=== PATIENT | male | born 1950 | race Caucasian/White ===

== ENCOUNTER 2021-05-04 11:17 | Inpatient (IN) ==
--- NOTE | 2021-05-04 11:27 | Emergency Department Note ---
Impression & Plan Dizziness, Leukocytosis, Acute hyponatremia, Bigeminy ED Provider Note NAME: BRAD LOERA AGE: 71 SEX: M : 1950 ARRIVES VIA: Ambulance INFORMANT: Patient ED PROVIDER(S): Black Abraham DO CHIEF COMPLAINT: lightheaded HPI: Patient is a 71-year-old male who presents the ER for feeling lightheaded. Symptoms started yesterday and have been present with changing positions. He feels very unsteady. He denies any headache or change in vision. No shortness of breath. He does admit to some chest tightness which has been present intermittently since yesterday. No belly pain nausea vomiting or diarrhea. No dysuria urgency or frequency. Symptoms are very similar to heart attack that he had within the past month. He was seen and evaluated at [facility] within the past week and discharged. ROS: See above HPI for pertinent positives & negatives. A total of 10 systems reviewed and were otherwise negative. PAST MEDICAL HISTORY:See Below PAST SURGICAL HISTORY:See Below FAMILY HISTORY:See Below SOCIAL HISTORY:See Below HOME MEDICATIONS:See Below ALLERGIES:See Below VITALS:See Below PHYSICAL EXAMINATION: GENERAL: Sitting up in bed, alert, well appearing, well nourished, no distress, non-toxic EYE EXAM: normal conjunctiva. PERRL and EOM's grossly intact. OROPHARYNX: no exudate, no erythema, lips, buccal mucosa, and tongue normal and mucous membranes are moist NECK: supple, no nuchal rigidity, no adenopathy, non-tender LUNGS: Clear to auscultation. Normal chest wall mechanics HEART: no murmurs, S1 normal and S2 normal ABDOMEN: abdomen soft, non-tender, normo-active bowel sounds, no masses, no rebound or guarding. BACK: Back is symmetrical on inspection and there is no deformity, no midline tenderness, no CVA tenderness. SKIN: no rashes and no bruising UPPER EXTREMITIES: upper extremities are grossly normal. LOWER EXTREMITIES: No pitting edema. NEURO EXAM: Normal sensorium, cranial nerves II-XII grossly intact, normal speech, no gross weakness of arms, no gross weakness of legs. MEDICAL DECISION MAKING: Patient is a 71-year-old male who presents the ER for dizziness. He had a stent placed over 3 weeks ago. He notes he is very lightheaded when he changes positions. IV was stopped blood was obtained. Labs show mild leukocytosis. No significant anemia. LFTs bilirubin and lipase is unremarkable. Troponin was negative. CT head was negative. EKG was a bigeminy rate of 80. He was given IV fluids. He was given aspirin. Updated at bedside. D/w hospitalist patient was admitted for further work-up. Triage Nursing notes reviewed. Limited review of prior medical records performed Vital Signs: reviewed and remarkable for HTN Differential diagnosis: Differential diagnoses includes but is not limited to acute coronary syndrome, myocardial infarction, pericarditis, pulmonary embolus, aortic dissection, pneumonia, pneumothorax, musculoskeletal, shingles, esophageal. ER treatment provided: See below Diagnostics interpreted by me: ECG: Sinus rhythm with bigeminy Rate 80 PVCs present QTC 477 No old to compare to Cardiac Monitoring: An order was placed for continuous cardiac monitoring. The monitor shows a rate of 82 with sinus rhythm. Laboratory studies: As stated above and show below. Imaging studies: The head was negative Chest x-ray was unremarkable Consultation(s): Discussed with hospitalist for further evaluation Procedures: none Critical Care: None Past Med/Surg History Medical History Asthma BPH (benign prostatic hyperplasia) CAD (coronary artery disease) Depression HLD (hyperlipidemia) HTN (hypertension) Major neurocognitive disorder MARTHA (obstructive sleep apnea) not on cpap, not compliant Rheumatoid arthritis Schizophrenia Surgical History History of colonoscopy History of esophagogastroduodenoscopy (EGD) History of heart artery stent History of prior ablation treatment Family History (Updated 05/04/21 @ 15:16 by Vi Fenton PA-C) Other Coronary heart disease Social History (Updated 05/04/21 @ 14:48 by Vi Fenton PA-C) Smoking Status: Never smoker Hx Alcohol Use: No Preferred Language: French Current Living Situation: Alone Feels Safe at Home: Yes Allergies Allergies Allergy/AdvReac Type Severity Reaction Status Date / Time No Known Allergies Allergy Verified 05/04/21 14:10 Home Meds Home Medications Medication Instructions Recorded Confirmed albuterol sulfate 90 mcg/actuation 2 puff INHALATION 6XD PRN 05/04/21 05/04/21 aerosol inhaler (Proventil HFA) amlodipine 2.5 mg tablet 2.5 mg PO DAILY 05/04/21 05/04/21 aspirin 81 mg tablet,delayed 81 mg PO DAILY 05/04/21 05/04/21 release atenolol 25 mg tablet 37.5 mg PO DAILY 05/04/21 05/04/21 atorvastatin 40 mg tablet 40 mg PO DAILY 05/04/21 05/04/21 citalopram 20 mg tablet 20 mg PO DAILY 05/04/21 05/04/21 clonazepam 1 mg tablet 1 mg PO BID 05/04/21 05/04/21 clopidogrel 75 mg tablet 75 mg PO DAILY 05/04/21 05/04/21 docusate sodium 100 mg capsule 100 mg PO DAILY 05/04/21 05/04/21 (Colace) ezetimibe 10 mg tablet (Zetia) 10 mg PO DAILY 05/04/21 05/04/21 fluticasone 250 mcg-salmeterol 50 1 inh INHALATION BID 05/04/21 05/04/21 mcg/dose blistr powdr for inhalation (Advair Diskus) furosemide 20 mg tablet 20 mg PO DAILY 05/04/21 05/04/21 melatonin 5 mg tablet 5 mg PO HS PRN 05/04/21 05/04/21 metoprolol tartrate 25 mg tablet 25 mg PO BID 05/04/21 05/04/21 multivitamin 1 tab PO DAILY 05/04/21 05/04/21 multivitamin with iron 1 tab PO DAILY 05/04/21 05/04/21 olanzapine 10 mg tablet (Zyprexa) 10 mg PO DAILY 05/04/21 05/04/21 pantoprazole 20 mg tablet,delayed 20 mg PO DAILY 05/04/21 05/04/21 release risperidone 1 mg tablet 2 mg PO DAILY 05/04/21 05/04/21 risperidone 3 mg tablet 3 mg PO HS 05/04/21 05/04/21 Results & Data (ED) Vital Signs Vital Signs - 24 hr 05/04/21 11:08 05/04/21 11:26 05/04/21 11:30 Temperature 36.8 C Temperature Source Oral Pulse Rate 72 77 77 Pulse Rate from SpO2 Sensor 39 L 51 L Pulse Rhythm Irregular Respiratory Rate 20 20 20 Respiratory Effort / Characteristics Non-Labored Respiratory Depth Normal Blood Pressure 164/72 H Blood Pressure Mean 102 Pulse Oximetry 97 97 97 Oxygen Delivery Method Room Air Sepsis Recent Fever Within 48 Hours No Sepsis New/Unexplained Change in Mental Status No Sepsis Action Taken by Nursing No Action Required 05/04/21 11:40 Temperature Temperature Source Pulse Rate 82 Pulse Rate from SpO2 Sensor 42 L Pulse Rhythm Respiratory Rate 14 Respiratory Effort / Characteristics Respiratory Depth Blood Pressure Blood Pressure Mean Pulse Oximetry 97 Oxygen Delivery Method Sepsis Recent Fever Within 48 Hours Sepsis New/Unexplained Change in Mental Status Sepsis Action Taken by Nursing Laboratory Data Result diagrams: 05/04/21 11:28 05/04/21 11:28 Lab Results 05/04/21 05/04/21 Range/Units 11:28 11:28 WBC 12.68 H (4.8-10.8) K/uL RBC 4.68 L (4.7-6.1) M/uL Hgb 14.5 (14.0-18.0) g/dL Hct 42.6 (42-52) % MCV 91.0 (80-100) fL MCH 31.0 (25-34) pg MCHC 34.0 (32-36) g/dL RDW Std Deviation 44.1 (36.4-46.3) fL RDW Coeff of Radha 13.4 (11.5-14.5) % Plt Count 211 (130-400) K/uL MPV 9.2 (7.4-10.4) fL Immature Gran % (Auto) 0.2 % Neut % (Auto) 85.6 % Lymph % (Auto) 6.3 % Converse % (Auto) 6.8 % Eos % (Auto) 0.9 % Baso % (Auto) 0.2 % Neut # (Auto) 10.85 H (1.4-6.5) K/uL Lymph # (Auto) 0.80 L (1.2-3.4) K/uL Converse # (Auto) 0.86 H (0.11-0.59) K/uL Eos # (Auto) 0.12 (0-0.5) K/uL Baso # (Auto) 0.02 (0-0.2) K/uL Immature Gran # (Auto) 0.03 H (0.00-0.02) K/uL Sodium 130 L (136-145) mmol/L Potassium 4.4 (3.5-5.1) mmol/L Chloride 97 L (98-107) mmol/L Carbon Dioxide 28 (21-32) mmol/L Anion Gap 5 (3-11) BUN 9 (6-23) mg/dl Creatinine 0.97 (0.6-1.4) mg/dl Est Cr Clr Drug Dosing Not Reportable Est GFR ( Amer) 90.0 ml/min Est GFR (Non-Af Amer) 77.7 ml/min BUN/Creatinine Ratio 9.3 L (10-20) Glucose 136 H (70-99(Fasting)) mg/dl Calcium 9.2 (8.5-10.1) mg/dl Total Bilirubin 0.6 (0.2-1.0) mg/dl AST 15 (13-39) U/L ALT 15 (7-52) U/L Alkaline Phosphatase 59 (34-104) U/L Troponin I < 0.03 (0-0.04) ng/ml Total Protein 7.0 (6.0-8.3) gm/dl Albumin 4.0 (3.4-5.0) gm/dl Globulin 3.0 (2.5-4.0) gm/dl Albumin/Globulin Ratio 1.3 (0.9-2) Lipase 11 (11-82) U/L Administered Medications Discontinued Medications Aspirin (Aspirin Chew 324 Mg) 324 mg PO NOW STA Stop: 05/04/21 13:07 Last Admin: 05/04/21 13:32 Dose: 324 mg Documented by: [id number] Sodium Chloride (Nss) 500 mls @ 999 mls/hr IV .Q31M ONE Stop: 05/04/21 12:01 Last Admin: 05/04/21 11:42 Dose: 999 mls/hr Documented by: [id number] Imaging Data Radiologist's Impression: Chest X-Ray 05/04/21 11:31 XR chest 1V portable CLINICAL HISTORY: Atypical chest pain TECHNIQUE: Single frontal radiograph of the chest was obtained. Comparison: None available at the time of this dictation. FINDINGS: Median sternotomy wires are seen. Cardiomegaly is noted. The lungs are clear. Small bilateral pleural effusions are seen. IMPRESSION: Cardiomegaly with small bilateral pleural effusions. ACT 112: Negative or not required by law. Electronically signed by: Pete Mahoney M.D. 05/04/2021 12:[address] 05/04/21 11:31 CT SCAN OF THE BRAIN WITHOUT IV CONTRAST CLINICAL HISTORY: Dizziness. COMPARISON STUDY: No priors. TECHNIQUE: Unenhanced axial CT scan of the brain is performed from the vertex to the skull base. A dose lowering technique was utilized adhering to the principles of ALARA. CT DOSE: 690.05 mGycm FINDINGS: Brain parenchyma: There are age-related involutional changes noting mild subcortical and periventricular microangiopathic change. There is no hemorrhage, mass effect, or evidence of acute territorial ischemia by CT criteria. Gaviria- white matter differentiation is preserved. No extra-axial fluid collection is seen. A small chronic lacunar infarct is noted in the right cerebellar hemisphere. Ventricles, sulci, cisterns: Prominent secondary to involutional change. Intracranial vasculature: There is atherosclerotic calcification of the cavernous carotid and vertebral arteries. Calvarium: Unremarkable. Sinuses and mastoids: The visualized paranasal sinuses are clear. The mastoid air cells are well pneumatized. Orbits: The bony orbits are grossly intact. IMPRESSION: There is no hemorrhage, mass effect, or evidence of acute territorial ischemia by CT criteria. ACT 112: Negative or not required by law. Electronically signed by: Fernandez Ritter M.D. 05/04/2021 1:58 PM Discharge Plan Visit Data Chief Complaint: Dizziness Stated Complaint: DIZZY ED Provider: Black Abraham Discharge Problem: Dizziness, Leukocytosis, Acute hyponatremia, Bigeminy Forms Stand Alone Forms: My [facility] Prescriptions Prescriptions: No Action atorvastatin 40 mg tablet 40 mg PO DAILY RF: 0 amlodipine 2.5 mg tablet 2.5 mg PO DAILY RF: 0 clopidogrel 75 mg tablet 75 mg PO DAILY RF: 0 pantoprazole 20 mg tablet,delayed release (DR/EC) 20 mg PO DAILY RF: 0 furosemide 20 mg tablet 20 mg PO DAILY RF: 0 metoprolol tartrate 25 mg tablet 25 mg PO BID RF: 0 multivitamin Tablet 1 tab PO DAILY RF: 0 fluticasone propion-salmeterol [Advair Diskus] 250-50 mcg/dose blister with device 1 inh INHALATION BID RF: 0 clonazepam 1 mg Tablet 1 mg PO BID RF: 0 atenolol 25 mg Tablet 37.5 mg PO DAILY RF: 0 olanzapine [Zyprexa] 10 mg Tablet 10 mg PO DAILY RF: 0 aspirin 81 mg Tablet,Delayed Release (Dr/Ec) 81 mg PO DAILY RF: 0 risperidone 3 mg tablet 3 mg PO HS RF: 0 citalopram 20 mg Tablet 20 mg PO DAILY RF: 0 docusate sodium [Colace] 100 mg capsule 100 mg PO DAILY RF: 0 albuterol sulfate [Proventil HFA] 90 mcg/actuation Hfa Aerosol Inhaler 2 puff INHALATION 6XD PRN (Reason: SOB) RF: 0 risperidone 1 mg tablet 2 mg PO DAILY RF: 0 multivitamin with iron [Tab-A-Ludivina/Iron] Tablet 1 tab PO DAILY RF: 0 ezetimibe [Zetia] 10 mg Tablet 10 mg PO DAILY RF: 0 melatonin 5 mg Tablet 5 mg PO HS PRN (Reason: Sleep) RF: 0 Referrals Referrals: PCP,NO [Physician] - Discharge Problem: Leukocytosis Qualifiers: Leukocytosis type: unspecified Qualified Code(s): D72.829 - Elevated white blood cell count, unspecified
[2021-05-04] MEDS ORDERED: SODIUM CHLORIDE 0.9% 500 ML IV ONE (11:31)
[2021-05-04 11:38] LABS: Basophils # (auto) 0.02 K/uL (0-0.2); Basophils % (auto) 0.2 %; Eosinophils # (auto) 0.12 K/uL (0-0.5); Eosinophils % (auto) 0.9 %; Hematocrit (blood only) 42.6 % (42-52); Hemoglobin 14.5 g/dL (14.0-18.0); Immature Granulocytes # (auto) 0.03 K/uL (0.00-0.02); Immature Granulocytes % (auto) 0.2 %; Lymphocytes % (auto) 6.3 %; Mean Platelet Volume 9.2 fL (7.4-10.4); Monocytes # (auto) 0.86 K/uL (0.11-0.59); Monocytes % (auto) 6.8 %; Neutrophils # (auto) 10.85 K/uL (1.4-6.5); Neutrophils % (auto) 85.6 %; Platelet Count 211 K/uL (130-400); RDW Coefficient of Variation 13.4 % (11.5-14.5); RDW Standard Deviation 44.1 fL (36.4-46.3); Red Blood Count 4.68 M/uL (4.7-6.1); White Blood Count 12.68 K/uL (4.8-10.8)
[2021-05-04 12:02] LABS: Troponin I < 0.03 ng/ml (0-0.04)
[2021-05-04 12:11] LABS: Alanine Aminotransferase 15 U/L (7-52); Albumin Globulin Ratio 1.3 (0.9-2); Alkaline Phosphatase 59 U/L (34-104); Anion Gap 5 (3-11); Aspartate Aminotransferase 15 U/L (13-39); BUN Creatinine Ratio 9.3 (10-20); Bilirubin,Total 0.6 mg/dl (0.2-1.0); Blood Urea Nitrogen 9 mg/dl (6-23); Calcium 9.2 mg/dl (8.5-10.1); Carbon Dioxide 28 mmol/L (21-32); Chloride 97 mmol/L (98-107); Est GFR (Non-African American) 77.7 ml/min; Glucose 136 mg/dl (70-99(Fasting)); Lipase 11 U/L (11-82); Potassium 4.4 mmol/L (3.5-5.1); Sodium 130 mmol/L (136-145)
--- NOTE | 2021-05-04 12:14 | XRay Report ---
XR chest 1V portable CLINICAL HISTORY: Atypical chest pain TECHNIQUE: Single frontal radiograph of the chest was obtained. Comparison: None available at the time of this dictation. FINDINGS: Median sternotomy wires are seen. Cardiomegaly is noted. The lungs are clear. Small bilateral pleural effusions are seen. IMPRESSION: Cardiomegaly with small bilateral pleural effusions. ACT 112: Negative or not required by law. Electronically signed by: Pete Mahoney M.D. 05/04/2021 12:12 PM
[2021-05-04] MEDS ORDERED: ASPIRIN CHEW 324 MG PO STA (13:06)
--- NOTE | 2021-05-04 13:10 | Electrocardiogram Report ---
Test Reason : Blood Pressure : / mmHG Vent. Rate : 080 BPM Atrial Rate : 080 BPM P-R Int : 176 ms QRS Dur : 084 ms QT Int : 414 ms P-R-T Axes : 033 015 051 degrees QTc Int : 477 ms Sinus rhythm with frequent Premature ventricular complexes Possible Left atrial enlargement Abnormal ECG No previous ECGs available Confirmed by Raymond Huber ([id number]) on 05/04/2021 1:10:01 PM Referred By: REFERRED SELF Confirmed By:Sarbjit Huber
--- NOTE | 2021-05-04 14:00 | CT Scan Report ---
CT SCAN OF THE BRAIN WITHOUT IV CONTRAST CLINICAL HISTORY: Dizziness. COMPARISON STUDY: No priors. TECHNIQUE: Unenhanced axial CT scan of the brain is performed from the vertex to the skull base. A do se lowering technique was utilized adhering to the principles of ALARA. CT DOSE: 690.05 mGycm FINDINGS: Brain parenchyma: There are age-related involutional changes noting mild subcortical and periventric ular microangiopathic change. There is no hemorrhage, mass effect, or evidence of acute territorial i schemia by CT criteria. Gaviria-white matter differentiation is preserved. No extra-axial fluid collecti on is seen. A small chronic lacunar infarct is noted in the right cerebellar hemisphere. Ventricles, sulci, cisterns: Prominent secondary to involutional change. Intracranial vasculature: There is atherosclerotic calcification of the cavernous carotid and vertebr al arteries. Calvarium: Unremarkable. Sinuses and mastoids: The visualized paranasal sinuses are clear. The mastoid air cells are well pneu matized. Orbits: The bony orbits are grossly intact. IMPRESSION: There is no hemorrhage, mass effect, or evidence of acute territorial ischemia by CT sergey kilgore. ACT 112: Negative or not required by law. Electronically signed by: Fernandez Ritter M.D. 05/04/2021 1:58 PM
--- NOTE | 2021-05-04 14:47 | History & Physical Report ---
Date of Service May 04, 2021 Assessment & Plan (1) Lightheadedness: (2) Bigeminy: (3) Leukocytosis: (4) Acute hyponatremia: (5) CAD (coronary artery disease): (6) HTN (hypertension): (7) HLD (hyperlipidemia): Plan: This is a 71-year-old male who has significant past medical history of CAD with history of CABG, HTN, HLD, MARTHA noncompliant with CPAP, asthma, BPH, schizophrenia, depression, major neurocognitive disorder who presents to ED via EMS secondary to dizziness. Lightheadedness Bigeminy admit to PCU pt with persistent bigeminy and symptomatic orthostatics consult cardiology obtain echocardiogram monitor on telemetry check mag, tsh will hold evening dose of metoprolol CAD with hx of CABG hx of coronary stent placement 1 month ago per pt on regimen of ASA, plavix, statin, metoprolol as above transferring cardiology care to [facility] HTN bp mildly elevated pt on amlodipine and metoprolol monitor Hyponatremia/Hypochloremia Na 130, Chl 97 possibly in setting of diuretic pt euvolemic hold lasix for now monitor daily and resume as able Leukocytosis no s/sx of infection CXR reviewed-no infiltration but clinically more crackles on right base Blood cultures have been taken and he was started with intravenous ceftriaxone and doxycycline obtain urine, procal HLD continue statin and zetia Asthma no acute exac continue advair, prn ventolin Neurocognitive disorder pt has seen inpt psych felt to have underlying neurocog deficit or early onset dementia pt is a poor historian Dispo: PCU, will obtain records from recent ER visit and [facility] cardiology records, HIM consult placed. He does live at home alone, [facility] involved FULL CODE PCP: Celia Hartmann, recently established Pt was seen and examined in collaboration with Dr. Rosas, please see addendum History of Present Illness Chief Complaint: Dizziness x 1 day. Primary Care Provider: Bong Gould MD This is a 71-year-old male who has significant past medical history of CAD with history of CABG, HTN, HLD, MARTHA noncompliant with CPAP, asthma, BPH, schizophrenia, depression, major neurocognitive disorder who presents to ED via EMS secondary to dizziness. Of significance patient has recently established with [place] 2 weeks ago and records are limited. Previously had been followed by a PCP in [place] as well as cardiology at [facility]. Patient states approximately 1 month ago he suffered a small MA and had to have a stent placed in [place], [place]. Since then he has been doing well until last evening when he was standing doing dishes and became very lightheaded and dizzy. He had to sit down. Dizziness and lightheadedness gets worse with movement. He states, "my h eart rate is low." He was seen in clinic today and EMS was summoned to bring patient to ED. Upon arrival with EMS heart rate was in 40s. He did take his morning medications. He further complains of chest heaviness although he states this has been present for a, "long time." He denies any garth chest pain. He is experiencing palpitations. He denies any falls or syncope. He denies any fever, chills, sweats, shortness of breath, EHRNANDEZ, cough, hemoptysis, or symptoms, nausea, vomiting, abdominal pain. Denies any recent illness. He denies any smoking rhonchal use. He does live alone. Although patient states symptoms of been going on for 1 day, per [facility] he was seen at [facility] ER earlier this week secondary to similar symptoms. He was discharged to home. Also patient was recently confined at [facility] and psychiatry due to depression and loneliness. Allergies Allergy/AdvReac Type Severity Reaction Status Date / Time No Known Allergies Allergy Verified 05/04/21 14:10 Home Medications Medication Instructions Recorded Confirmed Type albuterol sulfate 90 mcg/actuation 2 puff INHALATION 6XD PRN 05/04/21 05/04/21 History aerosol inhaler (Proventil HFA) amlodipine 2.5 mg tablet 2.5 mg PO DAILY 05/04/21 05/04/21 History aspirin 81 mg tablet,delayed 81 mg PO DAILY 05/04/21 05/04/21 History release atorvastatin 40 mg tablet 40 mg PO DAILY 05/04/21 05/04/21 History citalopram 20 mg tablet 20 mg PO DAILY 05/04/21 05/04/21 History clonazepam 1 mg tablet 1 mg PO BID 05/04/21 05/04/21 History clopidogrel 75 mg tablet 75 mg PO DAILY 05/04/21 05/04/21 History docusate sodium 100 mg capsule 100 mg PO DAILY 05/04/21 05/04/21 History (Colace) ezetimibe 10 mg tablet (Zetia) 10 mg PO DAILY 05/04/21 05/04/21 History fluticasone 250 mcg-salmeterol 50 1 inh INHALATION BID 05/04/21 05/04/21 History mcg/dose blistr powdr for inhalation (Advair Diskus) furosemide 20 mg tablet 20 mg PO DAILY 05/04/21 05/04/21 History melatonin 5 mg tablet 5 mg PO HS PRN 05/04/21 05/04/21 History metoprolol tartrate 25 mg tablet 25 mg PO BID 05/04/21 05/04/21 History multivitamin 1 tab PO DAILY 05/04/21 05/04/21 History multivitamin with iron 1 tab PO DAILY 05/04/21 05/04/21 History olanzapine 10 mg tablet (Zyprexa) 10 mg PO DAILY 05/04/21 05/04/21 History pantoprazole 20 mg tablet,delayed 20 mg PO DAILY 05/04/21 05/04/21 History release risperidone 1 mg tablet 2 mg PO DAILY 05/04/21 05/04/21 History risperidone 3 mg tablet 3 mg PO HS 05/04/21 05/04/21 History Past Med/Surg History Medical History Asthma BPH (benign prostatic hyperplasia) CAD (coronary artery disease) Depression HLD (hyperlipidemia) HTN (hypertension) Major neurocognitive disorder MARTHA (obstructive sleep apnea) not on cpap, not compliant Rheumatoid arthritis Schizophrenia Surgical History History of colonoscopy History of esophagogastroduodenoscopy (EGD) History of heart artery stent History of prior ablation treatment Family History Other Coronary heart disease Social History Smoking Status: Never smoker Hx Alcohol Use: No Preferred Language: Albanian Current Living Situation: Alone Feels Safe at Home: Yes Review of Systems Review of Systems: All systems reviewed & are unremarkable except as noted in HPI & below Physical Exam Physical Exam: Constitutional: WD/WN, elderly, male, vitals as above, NAD, sitting up in bed, pleasant, conversing easily Head: Normocephalic, Atraumatic Eyes: PERRL, conjunctivae normal, anicteric sclerae ENMT: external ear and nose normal, oropharynx normal Neck: trachea midline, no thyromegaly normal visual inspection Respiratory: normal respiratory effort, lungs clear to auscultation, no wheeze, rales, rhonchi. Normal insp/exp effort, no accessory muscle use Cardiovascular: Bradycardic rate with frequent ectopy, no murmur, no edema Vessels: no JVD or carotid bruit Chest: normal inspection of chest Abdomen: normal bowel sounds, soft, nontender, no hepatosplenomegaly Musculoskeletal: no cyanosis or clubbing, extremities motor strength 5/5 Skin: no rashes, warm and dry normal turgor Neurologic: PERRL, EOMI, accommodation nl, no face palsy, no dysarthria CN's II-XI intact bilaterally and moves all extremities Psychiatric: A+Ox3, euthymic affect Lymphatic: no cervical or axillary lymphadenopathy : deferred Results & Data Results & Data ([facility]) Vital Signs (Past 12 Hours) Vital Signs Temp Pulse Resp BP Pulse Ox 05/04/21 11:40 82 14 97 05/04/21 11:30 77 20 97 05/04/21 11:26 77 20 97 05/04/21 11:08 36.8 C 72 20 164/72 H 97 Diagnostic Findings Chest X-Ray 05/04/21 11:31 XR chest 1V portable CLINICAL HISTORY: Atypical chest pain TECHNIQUE: Single frontal radiograph of the chest was obtained. Comparison: None available at the time of this dictation. FINDINGS: Median sternotomy wires are seen. Cardiomegaly is noted. The lungs are clear. Small bilateral pleural effusions are seen. IMPRESSION: Cardiomegaly with small bilateral pleural effusions. ACT 112: Negative or not required by law. Electronically signed by: Pete Mahoney M.D. 05/04/2021 12:[address] 05/04/21 11:31 CT SCAN OF THE BRAIN WITHOUT IV CONTRAST CLINICAL HISTORY: Dizziness. COMPARISON STUDY: No priors. TECHNIQUE: Unenhanced axial CT scan of the brain is performed from the vertex to the skull base. A dose lowering technique was utilized adhering to the principles of ALARA. CT DOSE: 690.05 mGycm FINDINGS: Brain parenchyma: There are age-related involutional changes noting mild subcortical and periventricular microangiopathic change. There is no hemorrhage, mass effect, or evidence of acute territorial ischemia by CT criteria. Gaviria- white matter differentiation is preserved. No extra-axial fluid collection is seen. A small chronic lacunar infarct is noted in the right cerebellar hemisph ere. Ventricles, sulci, cisterns: Prominent secondary to involutional change. Intracranial vasculature: There is atherosclerotic calcification of the cavernous carotid and vertebral arteries. Calvarium: Unremarkable. Sinuses and mastoids: The visualized paranasal sinuses are clear. The mastoid air cells are well pneumatized. Orbits: The bony orbits are grossly intact. IMPRESSION: There is no hemorrhage, mass effect, or evidence of acute territorial ischemia by CT criteria. ACT 112: Negative or not required by law. Electronically signed by: Fernandez Ritter M.D. 05/04/2021 1:58 PM Medications Administered Medication List Discontinued Medications Aspirin (Aspirin Chew 324 Mg) 324 mg PO NOW STA Stop: 05/04/21 13:07 Last Admin: 05/04/21 13:32 Dose: 324 mg Documented by: [id number] Sodium Chloride (Nss) 500 mls @ 999 mls/hr IV .Q31M ONE Stop: 05/04/21 12:01 Last Admin: 05/04/21 11:42 Dose: 999 mls/hr Documented by: [id number] ECG Rate (beats per minute): 80 Rhythm: normal sinus Findings: + PVC (bigeminy) and + prolonged QT (477ms) COVID-19 Results Results COVID-19 Adm Lab Results: RBC 4.68 M/uL (4.7-6.1) L 05/04/21 WBC 12.68 K/uL (4.8-10.8) H 05/04/21 Hgb 14.5 g/dL (14.0-18.0) 05/04/21 Hct 42.6 % (42-52) 05/04/21 Plt Count 211 K/uL (130-400) 05/04/21 Neutrophils (%) (Auto) 85.6 % 05/04/21 Lymphocytes (%) (Auto) 6.3 % 05/04/21 Monocytes # (Auto) 0.86 K/uL (0.11-0.59) H 05/04/21 Eosinophils # (Auto) 0.12 K/uL (0-0.5) 05/04/21 Immature Granulocyte % (Auto) 0.2 % 05/04/21 Neutrophils # (Auto) 10.85 K/uL (1.4-6.5) H 05/04/21 Lymphocytes # (Auto) 0.80 K/uL (1.2-3.4) L 05/04/21 Monocytes # (Auto) 0.86 K/uL (0.11-0.59) H 05/04/21 Eosinophils # (Auto) 0.12 K/uL (0-0.5) 05/04/21 Basophils # (Auto) 0.02 K/uL (0-0.2) 05/04/21 Immature Granulocyte # (Auto) 0.03 K/uL (0.00-0.02) H 05/04/21 Na 130 mmol/L (136-145) L 05/04/21 K 4.4 mmol/L (3.5-5.1) 05/04/21 Cl 97 mmol/L (98-107) L 05/04/21 CO2 28 mmol/L (21-32) 05/04/21 Anion Gap 5 (3-11) 05/04/21 BUN 9 mg/dl (6-23) 05/04/21 Creatinine 0.97 mg/dl (0.6-1.4) 05/04/21 BUN/Creatinine Ratio 9.3 (10-20) L 05/04/21 Glucose Level 136 mg/dl (70-99(Fasting)) H 05/04/21 Ca 9.2 mg/dl (8.5-10.1) 05/04/21 Total Bilirubin 0.6 mg/dl (0.2-1.0) 05/04/21 AST/SGOT 15 U/L (13-39) 05/04/21 ALT/SGPT 15 U/L (7-52) 05/04/21 Alkaline Phosphatase 59 U/L (34-104) 05/04/21 Total Protein 7.0 gm/dl (6.0-8.3) 05/04/21 Albumin 4.0 gm/dl (3.4-5.0) 05/04/21 Globulin 3.0 gm/dl (2.5-4.0) 05/04/21 Albumin/Globulin Ratio 1.3 (0.9-2) 05/04/21 Troponin I < 0.03 ng/ml (0-0.04) 05/04/21 Procalcitonin 0.05 ng/ml (0-0.5) 05/04/21 D-Dimer 1160 ug/L FEU (0-500) H* 05/04/21 PTT 27.6 Seconds (21.0-31.0) 05/04/21 INR 1.0 (0.9-1.1) 05/04/21 SARS-CoV-2, RNA, NAAT NEGATIVE (NEGATIVE) 05/04/21 Chest X-Ray 05/04/21 Code Status & VTE Plan Code Status FULL CODE VTE Prophylaxis Plan VTE Prophylaxis will be ordered: Yes Supervising Physician Co-Signing Physician Notes Attending addendum: The patient was seen and examined in emergency room He has CAD and is status post CABG x1, PIERRE graft to LAD and also stent placement in left circumflex in 2018, hypertension, hyperlipidemia and MARTHA has been complaining of dizziness since last night He was noted to have palpitation with low heart rate as well without any chest pain and/or shortness of breath On examination Lying in bed comfortably with occasional palpitation Blood pressure noted to be high at 164/72 Monitor did show bigeminy and the rate was going anywhere from 50-70 Chestminimal bibasilar crackles more on the right than the left HeartS1-S2, ectopy but no murmur Abdomenbenign CNSalert, awake and oriented x3 His labs, EKG and imaging studies reviewed Has CAD status post CABG and stent placement as above coming in with bigeminy and dizziness going on since last night History of chronic bigeminy and PVC ablation in 2018 Cardiology consulted He was noted to have very high D-dimer and a CTA was requested to rule out pulmonary embolism His white count was minimally elevated and likely has right basilar infiltration on clinical examination he was a started with intravenous ceftriaxone and doxycycline. Blood cultures were taken Agree with assessment and plan as outlined above by Vi Rosas (1) Leukocytosis Leukocytosis type: unspecified Qualified Code(s): D72.829 - Elevated white blood cell count, unspecified
--- NOTE | 2021-05-04 15:56 | Cardiology Consultation ---
Date of Consultation May 04, 2021 Assessment & Plan (1) Bigeminy: (2) Lightheadedness: (3) CAD (coronary artery disease): (4) HTN (hypertension): (5) Major neurocognitive disorder: Patient is a complex 71-year-old male with history as outlined including chronic coronary artery disease with recent coronary intervention at [facility]. Patient complains of dizziness and lightheadedness and generalized malaise. EKG reveals chronic ventricular ectopy/bigeminy likely as a source of patient's sensed low heart rate on pulse oximeter No acute cardiac findings at this time by cardiac enzyme and EKG Plan obtain records from [facility] Obtain echocardiogram to establish baseline LV systolic function Maintain telemetry given past history of ventricular arrhythmias Continue beta-laverne noting bigeminy will cause artifactually low heart rate Given diffuse vascular disease and dizziness would check carotid ultrasound Exclude underlying infectious causes with elevated white white cell count,hyponatremia Cardiology will follow this admission History of Present Illness Reason for Consultation: Dizziness Requesting Physician: Vi Fenton History of Present Illness Patient is a 71-year-old male with ongoing issues include 1. Chronic coronary artery disease status post coronary bypass grafting x1, PIERRE graft to the LAD, May 2017, subsequent coronary stent intervention left circumflex June 2017 (unable to be grafted) NonST segment elevation myocardial infarction with subsequent intervention with Xience drug-eluting stent to the left circumflex 04/14/2021 [facility] 2. Chronic ventricular ectopy and bigeminy status post PVC ablation 2017, past ventricular tachycardia post coronary bypass graft 3. Hypertension 4. Hyperlipidemia 5. Obstructive sleep apnea/asthma/copd 6. Chronic anxiety/depressive disorder/schizophrenia with inpatient psychiatric hospitalization 04/23/2021 at [facility] 7. Chart history of abdominal aneurysm Patient is extremely poor historian but notes not having felt well for several weeks with resultant multiple ER possible visits including [facility] He presented for evaluation today due to complaints of heart pounding hard at n ight. He checked his pulse and finds it to be slow at times and feels dizzy with complaints. No chest pressure pain no syncope or near syncope. Feels chilled at times but no productive cough. Appetite is fair Has had bleeding in the past but no recent bleeding concerns Underwent coronary intervention due to shortness of breath on 04/14/2021 with possible slight improvement in symptoms. No orthostasis noted on examination today despite complaints of dizziness Telemetry demonstrates sinus rhythm with ventricular ectopy, bigeminy Allergies Allergy/AdvReac Type Severity Reaction Status Date / Time No Known Allergies Allergy Verified 05/04/21 14:10 Home Medications Medication Instructions Recorded Confirmed Type albuterol sulfate 90 mcg/actuation 2 puff INHALATION 6XD PRN 05/04/21 05/04/21 History aerosol inhaler (Proventil HFA) amlodipine 2.5 mg tablet 2.5 mg PO DAILY 05/04/21 05/04/21 History aspirin 81 mg tablet,delayed 81 mg PO DAILY 05/04/21 05/04/21 History release atorvastatin 40 mg tablet 40 mg PO DAILY 05/04/21 05/04/21 History citalopram 20 mg tablet 20 mg PO DAILY 05/04/21 05/04/21 History clonazepam 1 mg tablet 1 mg PO BID 05/04/21 05/04/21 History clopidogrel 75 mg tablet 75 mg PO DAILY 05/04/21 05/04/21 History docusate sodium 100 mg capsule 100 mg PO DAILY 05/04/21 05/04/21 History (Colace) ezetimibe 10 mg tablet (Zetia) 10 mg PO DAILY 05/04/21 05/04/21 History fluticasone 250 mcg-salmeterol 50 1 inh INHALATION BID 05/04/21 05/04/21 History mcg/dose blistr powdr for inhalation (Advair Diskus) furosemide 20 mg tablet 20 mg PO DAILY 05/04/21 05/04/21 History melatonin 5 mg tablet 5 mg PO HS PRN 05/04/21 05/04/21 History metoprolol tartrate 25 mg tablet 25 mg PO BID 05/04/21 05/04/21 History multivitamin 1 tab PO DAILY 05/04/21 05/04/21 History multivitamin with iron 1 tab PO DAILY 05/04/21 05/04/21 History olanzapine 10 mg tablet (Zyprexa) 10 mg PO DAILY 05/04/21 05/04/21 History pantoprazole 20 mg tablet,delayed 20 mg PO DAILY 05/04/21 05/04/21 History release risperidone 1 mg tablet 2 mg PO DAILY 05/04/21 05/04/21 History risperidone 3 mg tablet 3 mg PO HS 05/04/21 05/04/21 History Patient History Medical History Asthma BPH (benign prostatic hyperplasia) CAD (coronary artery disease) Depression HLD (hyperlipidemia) HTN (hypertension) Major neurocognitive disorder MARTHA (obstructive sleep apnea) not on cpap, not compliant Rheumatoid arthritis Schizophrenia Surgical History History of colonoscopy History of esophagogastroduodenoscopy (EGD) History of heart artery stent History of prior ablation treatment Family History Other Coronary heart disease Social History Smoking Status: Never smoker Hx Alcohol Use: No Preferred Language: Romanian Current Living Situation: Alone Feels Safe at Home: Yes Review of Systems Review of Systems: All systems reviewed & are unremarkable except as noted in HPI & below Physical Exam Constitutional: + overweight; no acute distress Anxious Eyes: PERRL, conjunctivae normal, anicteric sclerae ENMT: external ear and nose normal, oropharynx normal Neck: trachea midline, no thyromegaly Respiratory: Auscultation: + wheezes (With forced cough) Cardiovascular: Rate/Rhythm: regular rate and regular rhythm Heart Sounds: normal S1 and normal S2; no gallop and no cardiac rub Vessels: femoral pulses present and radial pulses present; no JVD and no abdominal aortic bruit Extremities: no pedal edema Chest (Breasts): Additional Comments: Well-healed sternal incision Gastrointestinal (Abdomen): normal bowel sounds, soft, nontender, no hepatosplenomegaly Musculoskeletal: no cyanosis or clubbing, extremities motor strength 5/5 Skin: no rashes, warm and dry Neurologic: CN's II-XI intact bilaterally Motor/Sensory: + tremor Results & Data ([facility]) Vital Signs (Past 12 Hours) Vital Signs Temp Pulse Resp BP Pulse Ox 05/04/21 11:40 82 14 97 05/04/21 11:30 77 20 97 05/04/21 11:26 77 20 97 05/04/21 11:08 36.8 C 72 20 164/72 H 97 Laboratory Results Laboratory Results - last 24 hr 01/05/04/21 05/04/21 11:28 11:28 11:28 WBC 12.68 H RBC 4.68 L Hgb 14.5 Hct 42.6 MCV 91.0 MCH 31.0 MCHC 34.0 RDW Std Deviation 44.1 RDW Coeff of Radha 13.4 Plt Count 211 MPV 9.2 Immature Gran % (Auto) 0.2 Neut % (Auto) 85.6 Lymph % (Auto) 6.3 Barron % (Auto) 6.8 Eos % (Auto) 0.9 Baso % (Auto) 0.2 Neut # (Auto) 10.85 H Lymph # (Auto) 0.80 L Barron # (Auto) 0.86 H Eos # (Auto) 0.12 Baso # (Auto) 0.02 Immature Gran # (Auto) 0.03 H Sodium 130 L Potassium 4.4 Chloride 97 L Carbon Dioxide 28 Anion Gap 5 BUN 9 Creatinine 0.97 Est Cr Clr Drug Dosing Not Reportable Est GFR ( Amer) 90.0 Est GFR (Non-Af Amer) 77.7 BUN/Creatinine Ratio 9.3 L Glucose 136 H Calcium 9.2 Magnesium 2.1 Total Bilirubin 0.6 AST 15 ALT 15 Alkaline Phosphatase 59 Troponin I < 0.03 Total Protein 7.0 Albumin 4.0 Globulin 3.0 Albumin/Globulin Ratio 1.3 Lipase 11 Procalcitonin TSH Urine Color Urine Appearance Urine pH Ur Specific Carmi Urine Protein Urine Glucose (UA) Urine Ketones Urine Blood Urine Nitrite Urine Bilirubin Urine Urobilinogen Ur Leukocyte Esterase SARS-CoV-2, RNA, NAAT 05/04/21 05/04/21 05/04/21 11:28 11:28 16:41 WBC RBC Hgb Hct MCV MCH MCHC RDW Std Deviation RDW Coeff of Radha Plt Count MPV Immature Gran % (Auto) Neut % (Auto) Lymph % (Auto) Barron % (Auto) Eos % (Auto) Baso % (Auto) Neut # (Auto) Lymph # (Auto) Barron # (Auto) Eos # (Auto) Baso # (Auto) Immature Gran # (Auto) Sodium Potassium Chloride Carbon Dioxide Anion Gap BUN Creatinine Est Cr Clr Drug Dosing Est GFR ( Amer) Est GFR (Non-Af Amer) BUN/Creatinine Ratio Glucose Calcium Magnesium Total Bilirubin AST ALT Alkaline Phosphatase Troponin I Total Protein Albumin Globulin Albumin/Globulin Ratio Lipase Procalcitonin 0.05 TSH 1.576 Urine Color Urine Appearance Urine pH Ur Specific Carmi Urine Protein Urine Glucose (UA) Urine Ketones Urine Blood Urine Nitrite Urine Bilirubin Urine Urobilinogen Ur Leukocyte Esterase SARS-CoV-2, RNA, NAAT Pending 05/04/21 16:46 WBC RBC Hgb Hct MCV MCH MCHC RDW Std Deviation RDW Coeff of Radha Plt Count MPV Immature Gran % (Auto) Neut % (Auto) Lymph % (Auto) Barron % (Auto) Eos % (Auto) Baso % (Auto) Neut # (Auto) Lymph # (Auto) Barron # (Auto) Eos # (Auto) Baso # (Auto) Immature Gran # (Auto) Sodium Potassium Chloride Carbon Dioxide Anion Gap BUN Creatinine Est Cr Clr Drug Dosing Est GFR ( Amer) Est GFR (Non-Af Amer) BUN/Creatinine Ratio Glucose Calcium Magnesium Total Bilirubin AST ALT Alkaline Phosphatase Troponin I Total Protein Albumin Globulin Albumin/Globulin Ratio Lipase Procalcitonin TSH Urine Color Yellow Urine Appearance Clear Urine pH 7.5 Ur Specific Carmi 1.006 Urine Protein Negative Urine Glucose (UA) Negative Urine Ketones Negative Urine Blood Negative Urine Nitrite Negative Urine Bilirubin Negative Urine Urobilinogen Negative Ur Leukocyte Esterase Negative SARS-CoV-2, RNA, NAAT ECG Additional Comments: Sinus rhythm with frequent Premature ventricular complexes, heart rate 80 possible Left atrial enlargement Abnormal ECG No previous ECGs available
[2021-05-04 16:57] LABS: Appearance Urine Clear (Clear); Bilirubin Urine Negative (Negative); Blood Urine Negative (Negative); Color Urine Yellow; Glucose Urine UA Negative (Negative); Ketones Urine Negative (Negative); Leukocyte Esterase Urine Negative (Negative); Nitrite Urine Negative (Negative); Protein Urine Negative (Negative); Specific Gravity Urine 1.006 (1.000-1.030); Urobilinogen Urine Negative (Negative); pH Urine 7.5 (4.5-7.5)
[2021-05-04 18:14] LABS: D Dimer 1160 ug/L FEU (0-500)
[2021-05-04 18:21] LABS: Partial Thromboplastin Time 27.6 Seconds (21.0-31.0); Prothrombin Time 10.5 Seconds (9.0-12.0)
--- NOTE | 2021-05-04 18:53 | Ultrasound Report ---
ULTRASOUND OF THE CAROTID ARTERIES CLINICAL HISTORY: Dizziness. COMPARISON STUDY: No priors. TECHNIQUE: Real-time, grayscale, and color Doppler sonography of the carotid arteries is performed. I mages are reviewed in the transverse and longitudinal planes. FINDINGS: Blood pressures were not assessed due to reported limb restrictions. The carotid arteries are patent bilaterally and demonstrate antegrade flow. There is mild to moderate atherosclerotic plaque seen in the carotid bulbs bilaterally. Normal doppler arterial waveforms are seen throughout. Cardiac pulsations appear irregular. Velocity measurements are listed below. Common carotid peak systolic velocity (cm/sec): RIGHT: 97 LEFT: 107 ICA proximal peak systolic velocity (cm/sec): RIGHT: 70 LEFT: 62 ICA mid peak systolic velocity (cm/sec): RIGHT: 59 LEFT: 57 ICA distal peak systolic velocity (cm/sec): RIGHT: 55 LEFT: 57 ICA/CC peak systolic ratio: RIGHT: 0.7 LEFT: 0.6 Antegrade flow was shown in the vertebral arteries. The external carotid arteries are patent. IMPRESSION: 1. There is no sonographic evidence of hemodynamically significant stenosis in the right or left [place] arterial system. 2. Antegrade flow is shown in the vertebral arteries. 3. The cardiac pulsations appear irregular. Correlate for evidence of arrhythmia. ACT 112: Negative or not required by law. Electronically signed by: Fernandez Ritter M.D. 05/04/2021 6:52 PM
[2021-05-04] MEDS ORDERED: MAGNESIUM HYDROXIDE SUSP 30 ML UDC PO PRN (20:22)
[2021-05-04] MEDS ORDERED: ALUMINUM/MAGNESIUM SUSP 30 ML UDC PO PRN (20:22)
[2021-05-04] MEDS ORDERED: ONDANSETRON INJ 2 MG/ML 2 ML VIAL IV PRN (20:22)
[2021-05-04] MEDS ORDERED: risperiDONE 3 MG TABLET PO SCH (21:00)
[2021-05-04] MEDS ORDERED: OPTIRAY 320 125ml IV ONE (21:14)
[2021-05-04] MEDS: cefTRIAXone SODIUM 2,000 MG in DEXTROSE 5% 50 ML IV SCH (22:49)
[2021-05-04] MEDS: clonazePAM 1 MG TAB PO SCH (22:56)
[2021-05-04] MEDS: DOXYCYCLINE HYCLATE 100 MG CAP PO SCH (22:57)
[2021-05-04] MEDS: METOPROLOL TARTRATE 25 MG TAB PO SCH (22:57)
[2021-05-04] MEDS: HEPARIN SOD 5,000 UNIT/0.5 ML VIAL SQ SCH (22:58)
[2021-05-05] MEDS: HEPARIN SOD 5,000 UNIT/0.5 ML VIAL SQ SCH (06:29)
[2021-05-05 06:55] LABS: Hematocrit (blood only) 42.1 % (42-52); Hemoglobin 14.3 g/dL (14.0-18.0); Mean Corpuscular Hemoglobin 30.6 pg (25-34); Mean Corpuscular Volume 90.1 fL (80-100); Platelet Count 219 K/uL (130-400); RDW Coefficient of Variation 13.6 % (11.5-14.5); RDW Standard Deviation 44.5 fL (36.4-46.3); Red Blood Count 4.67 M/uL (4.7-6.1)
--- NOTE | 2021-05-05 07:05 | CT Scan Report ---
CT angio chest PE protocol CT DOSE: 610.18 mGy.cm HISTORY: 71 years-old Male with PE. Acute shortness of breath with cough TECHNIQUE: Multiple CTA images of the chest were obtained after the intravenous administration of 119 ml Optiray. Coronal and sagittal MIPS were obtained from the axial data set and were submitted for review. All measurements were obtained according to NASCET criteria. A dose lowering technique was u tilized adhering to the principles of ALARA. COMPARISON: Chest radiograph 05/04/2021 FINDINGS: CTA: The heart is mildly enlarged. No pericardial effusion. Extensive [place] coronary artery calcification s. Prior median sternotomy with CABG. Atherosclerosis of the thoracic aorta without aneurysm. Patency of the imaged great vessels. There is satisfactory opacification of the pulmonary arterial tree. No filling defects identified to suggest thromboembolic disease. CT CHEST: Unremarkable thyroid. No adenopathy. Small layering pleural effusions. Mild left greater than right p leural thickening. No pneumothorax or overt pulmonary edema. Subsegmental bibasilar predominant atele ctasis/scarring. 6 mm solid nodule of the basal left lower lobe, image 68. Central airways are patent . There is no acute process of the imaged upper abdomen. Cholecystectomy. Subcentimeter calcification o f the right hepatic lobe. Unremarkable soft tissues. Healed chronic left-sided rib fractures. Degener ative changes of the shoulders and spine. IMPRESSION: 1. No pulmonary emboli. 2. Cardiomegaly with prior median sternotomy and CABG. 3. Small pleural effusions with subsegmental bibasilar atelectasis. 4. 6 mm solid nodule of the left lower lobe. Please refer to below summary of Fleischner criteria recommendations for follow-up of incidental CT n odules (Luisito Freedman, Guidelines for management of small pulmonary nodules detected on CT scans: A sta tement from the Fleischner Society, Radiology 237: [phone].) SOLID NODULES Solitary nodule size: 6-8 mm * Low risk patients: follow-up at 6-12 months, then consider further follow-up at 18-24 months * high risk patients: initial follow-up CT at 6-12 months and then at 18-24 months if no change Note: newly detected indeterminate nodule in persons 35 years of age or older. * Low risk patients: minimal or absent history of smoking and/or other known risk factors * high risk patients: history of smoking or of other known risk factors (e.g. first degree relative with lung cancer, or exposure to asbestos, radon, uranium) * if a nodule up to 8 mm is partly solid or is ground glass further follow-up is required after 24 m onths to exclude possible slow growing adenocarcinoma (SEAN) ACT 112: Negative or not required by law. The above report was generated using voice recognition software. It may contain grammatical, syntax o r spelling errors. Electronically signed by: Clay Gillis M.D. 05/05/2021 7:04 AM
[2021-05-05 07:37] LABS: Alanine Aminotransferase 14 U/L (7-52); Albumin Globulin Ratio 1.4 (0.9-2); Albumin Level 3.8 gm/dl (3.4-5.0); Alkaline Phosphatase 56 U/L (34-104); Anion Gap 6 (3-11); Aspartate Aminotransferase 13 U/L (13-39); Bilirubin,Total 0.6 mg/dl (0.2-1.0); Blood Urea Nitrogen 9 mg/dl (6-23); Calcium 9.1 mg/dl (8.5-10.1); Carbon Dioxide 26 mmol/L (21-32); Chloride 100 mmol/L (98-107); Chol HDL Ratio 2.3 (0-5); Cholesterol 105 mg/dl (0-200); Est GFR (African American) 86.8 ml/min; Est GFR (Non-African American) 74.9 ml/min; Globulin 2.8 gm/dl (2.5-4.0); Glucose 94 mg/dl (70-99(Fasting)); HDL Cholesterol 46 mg/dl; LDL Cholesterol Calculated 40 mg/dl; Magnesium 2.2 mg/dl (1.7-2.4); Potassium 4.3 mmol/L (3.5-5.1); Sodium 132 mmol/L (136-145); Total Protein 6.6 gm/dl (6.0-8.3); Triglycerides 94 mg/dl (0-150); VLDL Cholesterol 19 mg/dl (0-30)
[2021-05-05 08:49] LABS: Estimated Average Glucose 128 mg/dl; Hemoglobin A1C 6.1 % (4.5-5.6)
[2021-05-05] MEDS: FLUTICASONE/VILANTEROL 200/25MCG 14 PUFFS/INHALER INH SCH (08:59)
[2021-05-05] MEDS: DOXYCYCLINE HYCLATE 100 MG CAP PO SCH ×2 (08:59→20:36)
[2021-05-05] MEDS: METOPROLOL TARTRATE 25 MG TAB PO SCH (08:59)
[2021-05-05] MEDS: ASPIRIN 81 MG ECTAB PO SCH (09:00)
[2021-05-05] MEDS: EZETIMIBE 10 MG TABLET PO SCH (09:00)
[2021-05-05] MEDS: PANTOprazole 40 MG TAB PO SCH (09:00)
[2021-05-05] MEDS: MULTIVITAMIN TAB PO SCH (09:00)
[2021-05-05] MEDS ORDERED: CITALOPRAM 20 MG TAB PO SCH (09:00)
[2021-05-05] MEDS ORDERED: OLANZapine 10 MG TAB PO SCH (09:00)
[2021-05-05] MEDS: ATORVASTATIN 40 MG TAB PO SCH (09:00)
[2021-05-05] MEDS: amLODIPine BESYLATE 5 MG TAB PO SCH (09:00)
[2021-05-05] MEDS: DOCUSATE SODIUM 100 MG CAP PO SCH (09:00)
[2021-05-05] MEDS ORDERED: risperiDONE 2 MG TABLET PO SCH (09:00)
[2021-05-05] MEDS: CLOPIDOGREL BISULFATE 75 MG TAB PO SCH (09:00)
[2021-05-05] MEDS ORDERED: COUGH DROP (SUGAR FREE) LOZ 24 LOZ/1 BOX BUCCAL ONE (09:03)
[2021-05-05] MEDS: clonazePAM 1 MG TAB PO SCH (09:04)
[2021-05-05] MEDS: POLYETHYLENE (MIRALAX) 17 GM PACK PO PRN (09:48)
--- NOTE | 2021-05-05 10:01 | Cardiology Progress Note ---
Date of Service May 05, 2021 Assessment & Plan (1) Bigeminy: (2) Lightheadedness: (3) CAD (coronary artery disease): (4) HTN (hypertension): (5) Major neurocognitive disorder: Plan: Patient is a complex 71-year-old male with history as outlined including chronic coronary artery disease with recent coronary intervention at [facility]. Patient complains of dizziness and lightheadedness and generalized malaise. EKG reveals chronic ventricular ectopy/bigeminy likely as a source of patient's sensed low heart rate on pulse oximeter No acute cardiac findings at this time by cardiac enzyme and EKG Plan obtain records from [facility] Obtain echocardiogram to establish baseline LV systolic function Maintain telemetry given past history of ventricular arrhythmias Continue beta-laverne noting bigeminy will cause artifactually low heart rate Given diffuse vascular disease and dizziness would check carotid ultrasound Exclude underlying infectious causes with elevated white white cell count,hyponatremia Cardiology will follow this admission Admission and Anticipated Discharge Date Admission Date: May 04, 2021 Subjective Patient seen and examined, chart reviewed. No events overnight reported by nursing. Review of Systems Review of Systems: Unobtainable due to mental health condition Results & Data ([facility]) Vital Signs (Past 12 Hours) Vital Signs Temp Pulse Resp BP BP Pulse Ox 05/05/21 08:13 36.7 C 69 16 109/62 95 05/05/21 04:11 36.5 C 69 16 109/61 94 05/05/21 00:00 36.8 C 71 18 102/62 97 05/04/21 23:10 36.9 C 67 16 153/75 H 96
--- NOTE | 2021-05-05 13:07 | Hospitalist Progress Note ---
Date of Service May 05, 2021 Assessment & Plan (1) Encephalopathy: Plan: Possible early onset dementia per notes, but official psychiatry notes unavailable from OSH. Underlying depression. Medications on hold given somnolence. Agree with psychiatry recommendations, from today. Adjustments made. On re-evaluation he was brighter and answering questions appropriately. Highly suspicious that medications were the cause of his hypersomnolence, and are the reason for his lightheadedness. (2) Lightheadedness: Plan: Recent outpatient records review reflects this has been ongoing for past couple of weeks. Still lightheaded this morning. Bigeminy on telemetry, orthostatic vitals ordered. Echo and cardiology consultation pending. Na improved from 130 to 132 this morning. Otherwise CBC and BMP within normal limits. Normal TFTs. He is very somnolent and cannot stay awake in order to have a conversation. Although he reports a h/o stroke in the past, he cannot elucidate his stroke de ficits for me now and has right facial droop. Per RN, this is a change in mental status since this morning when he took his pills. He took a nap this morning, and was awoken just prior to this evaluation. He is somewhat difficult to arouse, and has recently taken clonazepam 1mg, risperidone and olanzapine 10mg PO. He has a h/o schizophrenia. Will hold these medications until he is more alert and awake. Obtain repeat CT head in the setting of mental statu change and somnolence. ABG to rule out acid base issue. Suspect toxic encephalopathy from recent medication administration. Will reassess patient when more awake later today. As above, agree with psych recommendations. (3) Bigeminy: Plan: PVC ablation in 2018, cont metoprolol. Benign per cardiology. (4) Leukocytosis: Plan: Possible pneumonia on CT chest overnight. Leukocytosis has resolved on Rocephin and doxycycline. Blood cultures pending. Procalcitonin negative.Doesn't appear infectious, however, patient is a poor historian. Cont abx for now. Urine is clear. Cont current therapy. (5) Acute hyponatremia: Plan: Possibly 2/2 lasix which has been held. May also be related to SSRI-Improved to 132. Cont to monitor. (6) CAD (coronary artery disease): Plan: s/p CABG in 2018, recent stent placement at OSH one month ago-records not available. Cont ASA, Plavix, statin. Metoprolol held overnight with reported bradycardia on arrival to the ER, but currently active. He is in the process of transferring his outpatient cardiology care to [facility]. (7) HTN (hypertension): Plan: chronic, controlled, cont amlodipine 2.5mg daily (8) DVT prophylaxis: Plan: Lovenox Full Code Dispo-uncertain at this time Guerline Odom DO [facility] Hospitalist Admission and Anticipated Discharge Date Admission Date: May 04, 2021 Subjective 71 yo M wtih h/o CABG in 2018, PVC ablation in the past presents with ongoing dizziness for pst couple of weeks. Recent cardiac stent one month ago, h/o depression on multiple mood altering medications. Very somnolent and difficult to arouse from sleep--CT head repeat was negative ABG revealed slight hypoxia--patient is known to have a h/o MARTHA with noncompliance with CPAP More awake on return--states he has been dizzy for one week-states room is not spinning but he feels faint, more consistent with lightheadedness He started new depression medications last week but doesn't know what he takes or what changed Has a nurse Haily through [facility] that fills a med box for him and he self- administers his meds at home. PDMP review reveals no clonazepam Rx since August 2020. Agree with psychiatry recommendations. Review of Systems Review of Systems: All systems were reviewed and negative except as indicated in subjective above. Physical Exam Physical Exam: CONSTITUTIONAL: WNWD, vitals as above, generally well- appearing, NAD EYES: Pupils are round and equal bilaterally, normal conjunctivae ENT: external ear and nose normal, NECK: trachea midline, RESPIRATORY: clear to auscultation bilaterally, no crackles, rales or wheezes, normal respiratory effort CARDIOVASCULAR: regular rate and rhythm, S1 and 2 heard without murmurs, gallops or rubs, no JVD, no peripheral edema, CHEST: inspection of chest was normal GASTROINTESTINAL: soft, nontender, ND, no guarding MUSCULOSKELETAL: strength 5/5 throughout, head is normocephalic and atraumatic, SKIN: warm and dry, NEUROLOGIC: CN 2-12 grossly intact, no sensory deficit, normal cognition, normal speech, no tremor PSYCHIATRIC: alert cooperative and oriented to person, place and time. Results & Data Results & Data ([facility]) Vital Signs (Past 12 Hours) Vital Signs Temp Pulse Pulse Resp BP Pulse Ox 05/05/21 12:16 36.5 C 63 16 129/68 97 05/05/21 08:20 78 05/05/21 08:13 36.7 C 69 16 109/62 95 05/05/21 04:11 36.5 C 69 16 109/61 94 Laboratory Results Short CBC 05/05/21 Range/Units 06:35 WBC 7.40 (4.8-10.8) K/uL Hgb 14.3 (14.0-18.0) g/dL Hct 42.1 (42-52) % Plt Count 219 (130-400) K/uL BMP 05/05/21 06:35 Sodium 132 L Potassium 4.3 Chloride 100 Carbon Dioxide 26 BUN 9 Creatinine 1.00 Glucose 94 Calcium 9.1 Cardiac Enzymes 05/04/21 05/04/21 Range/Units 17:22 22:50 Troponin I < 0.03 < 0.03 (0-0.04) ng/ml Liver Function 05/05/21 Range/Units 06:35 Total Bilirubin 0.6 (0.2-1.0) mg/dl AST 13 (13-39) U/L ALT 14 (7-52) U/L Alkaline Phosphatase 56 (34-104) U/L Albumin 3.8 (3.4-5.0) gm/dl Urine 05/04/21 Range/Units 16:46 Urine Color Yellow Urine Appearance Clear (Clear) Urine pH 7.5 (4.5-7.5) Ur Specific [place] 1.006 (1.000-1.030) Urine Protein Negative (Negative) Urine Glucose (UA) Negative (Negative) Diagnostic Findings Chest CTA 05/04/21 18:16 CT angio chest PE protocol CT DOSE: 610.18 mGy.cm HISTORY: 71 years-old Male with PE. Acute shortness of breath with cough TECHNIQUE: Multiple CTA images of the chest were obtained after the intravenous administration of 119 ml Optiray. Coronal and sagittal MIPS were obtained from the axial data set and were submitted for review. All measurements were obtained according to NASCET criteria. A dose lowering technique was utilized adhering to the principles of ALARA. COMPARISON: Chest radiograph 05/04/2021 FINDINGS: CTA: The heart is mildly enlarged. No pericardial effusion. Extensive [place] coronary artery calcifications. Prior median sternotomy with CABG. Atherosclerosis of the thoracic aorta without aneurysm. Patency of the imaged great vessels. There is satisfactory opacification of the pulmonary arterial tree. No filling defects identified to suggest thromboembolic disease. CT CHEST: Unremarkable thyroid. No adenopathy. Small layering pleural effusions. Mild left greater than right pleural thickening. No pneumothorax or overt pulmonary edema. Subsegmental bibasilar predominant atelectasis/scarring. 6 mm solid nodule of the basal left lower lobe, image 68. Central airways are patent. There is no acute process of the imaged upper abdomen. Cholecystectomy. Subcentimeter calcification of the right hepatic lobe. Unremarkable soft tissues. Healed chronic left-sided rib fractures. Degenerative changes of the shoulders and spine. IMPRESSION: 1. No pulmonary emboli. 2. Cardiomegaly with prior median sternotomy and CABG. 3. Small pleural effusions with subsegmental bibasilar atelectasis. 4. 6 mm solid nodule of the left lower lobe. Please refer to below summary of Fleischner criteria recommendations for follow- up of incidental CT nodules (Luisito Freedman, Guidelines for management of small pulmonary nodules detected on CT scans: A statement from the Fleischner Society, Radiology 237: [phone].) SOLID NODULES Solitary nodule size: 6-8 mm * Low risk patients: follow-up at 6-12 months, then consider further follow-up at 18-24 months * high risk patients: initial follow-up CT at 6-12 months and then at 18-24 months if no change Note: newly detected indeterminate nodule in persons 35 years of age or older. * Low risk patients: minimal or absent history of smoking and/or other known risk factors * high risk patients: history of smoking or of other known risk factors (e.g. first degree relative with lung cancer, or exposure to asbestos, radon, uranium) * if a nodule up to 8 mm is partly solid or is ground glass further follow-up is required after 24 months to exclude possible slow growing adenocarcinoma (SEAN) ACT 112: Negative or not required by law. The above report was generated using voice recognition software. It may contain grammatical, syntax or spelling errors. Electronically signed by: Clay Gillis M.D. 05/05/2021 7:04 AM Medications Administered Current Inpatient Medications Acetaminophen (Acetaminophen 325 Mg Tab) 650 mg PO Q4H PRN PRN Reason: Pain or Fever Stop: 06/03/21 20:21 Al Hydrox/Mg Hydrox/Simethicone (Aluminum/Magnesium Susp 30 Ml Udc) 15 ml PO Q4H PRN PRN Reason: Dyspepsia Stop: 06/03/21 20:21 Albuterol (Albuterol Hfa 8 Gm Inhaler) 2 puffs INH Q6H PRN PRN Reason: Shortness Of Breath Stop: 06/03/21 20:21 Amlodipine Besylate (Amlodipine Besylate 5 Mg Tab) 2.5 mg PO DAILY [facility] Stop: 06/04/21 08:59 Last Admin: 05/05/21 09:00 Dose: 2.5 mg Documented by: Aspirin (Aspirin 81 Mg Ectab) 81 mg PO DAILY [facility] Stop: 06/04/21 08:59 Last Admin: 05/05/21 09:00 Dose: 81 mg Documented by: Atorvastatin Calcium (Atorvastatin 40 Mg Tab) 40 mg PO DAILY [facility] Stop: 06/04/21 08:59 Last Admin: 05/05/21 09:00 Dose: 40 mg Documented by: Citalopram Hydrobromide (Citalopram 20 Mg Tab) 20 mg PO DAILY [facility] Stop: 06/04/21 08:59 Last Admin: 05/05/21 09:00 Dose: 20 mg Documented by: Clonazepam (Clonazepam 1 Mg Tab) 1 mg PO BID [facility] Stop: 06/03/21 20:59 Last Admin: 05/05/21 09:04 Dose: 1 mg Documented by: Clopidogrel Bisulfate (Clopidogrel Bisulfate 75 Mg Tab) 75 mg PO DAILY [facility] Stop: 06/04/21 08:59 Last Admin: 05/05/21 09:00 Dose: 75 mg Documented by: Docusate Sodium (Docusate Sodium 100 Mg Cap) 100 mg PO DAILY [facility] Stop: 06/04/21 08:59 Last Admin: 05/05/21 09:00 Dose: 100 mg Documented by: Doxycycline Hyclate (Doxycycline Hyclate 100 Mg Cap) 100 mg PO BID [facility]; Protocol Stop: 05/11/21 20:59 Last Admin: 05/05/21 08:59 Dose: 100 mg Documented by: Ezetimibe (Ezetimibe 10 Mg Tablet) 10 mg PO DAILY [facility] Stop: 06/04/21 08:59 Last Admin: 05/05/21 09:00 Dose: 10 mg Documented by: Fluticasone/Vilanterol (Fluticasone/Vilanterol 200/25mcg 14 Puffs/Inhaler) 1 puffs INH DAILY [facility] Stop: 06/04/21 08:59 Last Admin: 05/05/21 08:59 Dose: 1 puffs Documented by: Heparin Sodium (Porcine) (Heparin Sod 5,000 Unit/0.5 Ml Vial) 5,000 units SQ Q8 [facility] Stop: 06/03/21 21:59 Last Admin: 05/05/21 06:29 Dose: 5,000 units Documented by: Ceftriaxone Sodium 2,000 mg/ (Dextrose) 70 mls @ 100 mls/hr IV Q24H [facility]; Protocol Stop: 05/11/21 20:59 Last Infusion: 05/04/21 23:54 Dose: Infused Documented by: Magnesium Hydroxide (Magnesium Hydroxide Susp 30 Ml Udc) 30 ml PO Q12H PRN PRN Reason: Constipation Stop: 06/03/21 20:21 Melatonin (Melatonin 3 Mg Tab) 4.5 mg PO HS PRN PRN Reason: Sleep Metoprolol Tartrate (Metoprolol Tartrate 25 Mg Tab) 25 mg PO BID [facility] Stop: 06/03/21 20:59 Last Admin: 05/05/21 08:59 Dose: 25 mg Documented by: Multivitamins (Multivitamin Tab) 1 tab PO DAILY [facility] Stop: 06/04/21 08:59 Last Admin: 05/05/21 09:00 Dose: 1 tab Documented by: Olanzapine (Olanzapine 10 Mg Tab) 10 mg PO DAILY [facility] Stop: 06/04/21 08:59 Last Admin: 05/05/21 09:00 Dose: 10 mg Documented by: Ondansetron HCl (Ondansetron Inj 2 Mg/Ml 2 Ml Vial) 4 mg IV Q6H PRN PRN Reason: Nausea Stop: 06/03/21 20:21 Pantoprazole Sodium (Pantoprazole 40 Mg Tab) 40 mg PO DAILY [facility] Stop: 06/04/21 08:59 Last Admin: 05/05/21 09:00 Dose: 40 mg Documented by: Polyethylene Glycol (Polyethylene (Miralax) 17 Gm Pack) 17 gm PO DAILY PRN PRN Reason: Constipation Stop: 06/03/21 20:21 Last Admin: 05/05/21 09:48 Dose: 17 gm Documented by: Risperidone (Risperidone 3 Mg Tablet) 3 mg PO HS [facility] Stop: 06/03/21 20:59 Last Admin: 05/04/21 22:57 Dose: 3 mg Documented by: Risperidone (Risperidone 2 Mg Tablet) 2 mg PO DAILY [facility] Stop: 06/04/21 08:59 Last Admin: 05/05/21 08:59 Dose: 2 mg Documented by: (1) Leukocytosis Leukocytosis type: unspecified Qualified Code(s): D72.829 - Elevated white blood cell count, unspecified
[2021-05-05 13:29] LABS: Base Excess ABG -1.5 mEq/L (-9-1.8); HCO3 ABG 22 mmol/L (19-24); PCO2 ABG 34 mmHg (35-46); PO2 ABG 69 mmHg (80-95); pH ABG 7.43 (7.35-7.45)
[2021-05-05 13:30] LABS: Allen Test Pos (Pos)
[2021-05-05] MEDS ORDERED: COUGH DROP (SUGAR FREE) LOZ 24 LOZ/1 BOX BUCCAL PRN (14:05)
--- NOTE | 2021-05-05 14:06 | Electrocardiogram Report ---
Test Reason : Blood Pressure : / mmHG Vent. Rate : 064 BPM Atrial Rate : 065 BPM P-R Int : 194 ms QRS Dur : 084 ms QT Int : 432 ms P-R-T Axes : 052 022 012 degrees QTc Int : 445 ms Sinus rhythm with frequent Premature ventricular complexes Otherwise normal ECG When compared with ECG of 04-MAY-2021 11:27, No significant change was found Confirmed by Raymond Huber ([id number]) on 05/05/2021 2:06:04 PM Referred By: REFERRED SELF Confirmed By:Sarbjit Huber
--- NOTE | 2021-05-05 14:55 | CT Scan Report ---
CT head/brain wo con CLINICAL HISTORY: 71 years-old Male with altered, somnolent. Acutely altered mental status TECHNIQUE: Multiple axial CT images of the head were obtained without contrast. A dose lowering tech nique was utilized adhering to the principles of ALARA. CT DOSE: 773.57 mGy.cm COMPARISON: Head CT 05/04/2021 FINDINGS: No acute intracranial hemorrhage, midline shift, intracranial mass, hydrocephalus, territorial ischem ia or abnormal extra-axial collection. Age-related involutional changes. Calcifications of the falx c erebri. Mild white matter hypodensities suggestive of chronic microvascular ischemic disease. The calvarium is intact. The paranasal sinuses, mastoid air cells, and middle ear cavities are clear . IMPRESSION: No acute intracranial abnormality. ACT 112: Negative or not required by law. The above report was generated using voice recognition software. It may contain grammatical, syntax o r spelling errors. Electronically signed by: Clay Gillis M.D. 05/05/2021 2:54 PM
--- NOTE | 2021-05-05 15:23 | Psychiatric Consultation ---
Date of Consultation May 05, 2021 Impression / Recommendations Impression This is a 71 yo old admitted for dizziness and cardiac problems. Diagnostically consistent with encephalopathy/hypoactive delirium likely superimposed on dementia complicated by a history of schizophrenia and depression. Suspect hyponatremia may be contributing to hypoactive delirium. Given his cardiac problems, recent stent placement, and ongoing hyponatremia recommend decreasing SSRI dose and switching from citalopram to escitalopram which has a more favorable cardiac risk profile and otherwise similar mechanism of action. If hyponatremia persists will need to weigh risks/benefits of SSRI. Dizziness prior to admission could certainly be exacerbated or caused by orthostatic hypotension from antipsychotic medications, especially given high doses for someone of his age and especially if early neurocognitive disorder is also present. Recommend stopping risperidone and reducing dose of zyprexa and dosing at nighttime to reduce daytime fatigue. Given history of schizophrenia seems appropriate to keep him on at least one antipsychotic medication though note all antipsychotic medications carry black box warning for increased risk of all-cause mortality in setting of dementia. Would also stop Klonopin as this can worsen delirium, especially in someone with dementia process, and can contribute to dizziness, increase fall risk and lead to further cognitive impairment. Does not appear that he's been on regular benzos since August 2020 so low concern for withdrawal delirium with abrupt discontinuation. -Agree with melatonin 4.5 mg qhs for delirium (consider scheduling at qhs instead of prn) -Stop clonazepam, risperidone and citalopram -Start escitalopram 10mg qd and follow Na+ closely (reduce to 5mg qd or stop if Na+ worsens or does not improve) -Decrease zyprexa to 2.5 mg and give at qHS -Continue medical workup to rule out and treat any underlying causes contributing to potential delirium, avoid or limit use of deliriogenic m edications (benzodiazepines, opioids, anticholinergics) -Continue with delirium prevention measures: raising blinds during the day, closing at night, frequent re-orientation, contact with family/friends, explaining procedures/nursing care measures prior to physical contact, correct any hearing and visual impairments -For behavioral emergency: olanzapine 2.5 mg IM x 1 (DO NOT exceed 10mg per 24 hours, check EKG if IM dose required, NEVER co-administer with IM or IV benzodiazepines). -They do not meet criteria for inpatient psychiatric hospitalization as primary cause of current symptoms is felt to be due to delirium and/or dementia -Psychiatric liason to gather further history after he returns from CT scan, will determine if further outpatient supports would be beneficial. (1) Encephalopathy: (2) Schizophrenia: (3) Acute hyponatremia: see impression Psych History Identifying Data 71 yo man with history of schizophrenia, depression, possible early onset neurocognitive disorder and multiple medical conditions including CAD s/p recent stent placement, hyponatremia, asthma and HTN. Psychiatry was consulted for recommendations as he has become quite somnolent. Chief Complaint "I've been tired". History of Present Illness Jonas was admitted medically for dizziness and concerns for bradycardia and found to have hyponatremia and begeminy. Today he presented with worsening hypersomnolence presenting as difficult to awaken and napping throughout the day. This afternoon he is asleep but awakens to light touch. He is oriented to person and city ([employer]) but doesn't know location until given choices and then can state he's in a hospital. He recalls being dizzy and feeling like his heart wasn't beating correctly and that's why he came to the hospital. As we continued conversation, staff arrived to take him to a CT scan. Per review of the chart and pharmacy records he was recently possible admitted or seen at a [facility] facility for depression and loneliness and possibly diagnosed with early dementia/neurocognitive disorder. Per review of PDMP last script was in August 2020 for ativan. Pharmacy records show prior scripts for perphenazine, zyprexa (5mg BID), risperidone, lexapro and trazodone in the past. Allergies Allergy/AdvReac Type Severity Reaction Status Date / Time No Known Allergies Allergy Verified 05/04/21 14:10 Home Medications Medication Instructions Recorded Confirmed Type albuterol sulfate 90 mcg/actuation 2 puff INHALATION 6XD PRN 05/04/21 05/04/21 History aerosol inhaler (Proventil HFA) amlodipine 2.5 mg tablet 2.5 mg PO DAILY 05/04/21 05/04/21 History aspirin 81 mg tablet,delayed 81 mg PO DAILY 05/04/21 05/04/21 History release atorvastatin 40 mg tablet 40 mg PO DAILY 05/04/21 05/04/21 History citalopram 20 mg tablet 20 mg PO DAILY 05/04/21 05/04/21 History clonazepam 1 mg tablet 1 mg PO BID 05/04/21 05/04/21 History clopidogrel 75 mg tablet 75 mg PO DAILY 05/04/21 05/04/21 History docusate sodium 100 mg capsule 100 mg PO DAILY 05/04/21 05/04/21 History (Colace) ezetimibe 10 mg tablet (Zetia) 10 mg PO DAILY 05/04/21 05/04/21 History fluticasone 250 mcg-salmeterol 50 1 inh INHALATION BID 05/04/21 05/04/21 History mcg/dose blistr powdr for inhalation (Advair Diskus) furosemide 20 mg tablet 20 mg PO DAILY 05/04/21 05/04/21 History melatonin 5 mg tablet 5 mg PO HS PRN 05/04/21 05/04/21 History metoprolol tartrate 25 mg tablet 25 mg PO BID 05/04/21 05/04/21 History multivitamin 1 tab PO DAILY 05/04/21 05/04/21 History multivitamin with iron 1 tab PO DAILY 05/04/21 05/04/21 History olanzapine 10 mg tablet (Zyprexa) 10 mg PO DAILY 05/04/21 05/04/21 History pantoprazole 20 mg tablet,delayed 20 mg PO DAILY 05/04/21 05/04/21 History release risperidone 1 mg tablet 2 mg PO DAILY 05/04/21 05/04/21 History risperidone 3 mg tablet 3 mg PO HS 05/04/21 05/04/21 History Personal History Beliefs That Will Affect Care: None Patient History Medical History Asthma BPH (benign prostatic hyperplasia) CAD (coronary artery disease) Depression HLD (hyperlipidemia) HTN (hypertension) Major neurocognitive disorder MARTHA (obstructive sleep apnea) not on cpap, not compliant Rheumatoid arthritis Schizophrenia Surgical History History of colonoscopy History of esophagogastroduodenoscopy (EGD) History of heart artery stent History of prior ablation treatment Family History Other Coronary heart disease Social History Smoking Status: Never smoker Hx Alcohol Use: No Hx Substance Use: No Preferred Language: Kenyan Communication Ability: Effective Visual Impairment: No Limitations Hearing Ability: Normal [employer] Required: No Beliefs That Will Affect Care: None Current Living Situation: Alone Feels Safe at Home: Yes Safety Concerns: Feels Safe At This Time Physical Exam Psychiatric: Orientation: alert, oriented to person, oriented to place (to city, and hospital with prompts) and cooperative Apperance: appropriately dressed and appropriately groomed Eye Contact: good eye contact Motor Behavior: no abnormal motor movements Speech: normal rate/rhythm/volume of speech Affect: euthymic affect Mood: no depressed mood ("tired") and no anxious mood Thought Process: goal directed thought process Thought Content: reality based without delusions Suicidal Thoughts: denies suicidal thoughts Homicidal Thoughts: denies homicidal thoughts Hallucinations: no auditory hallucinations and no visual hallucinations Cognition: remote memory grossly intact, attention grossly intact and language grossly intact; + recent memory not intact Estimated Intelligence: consistent with education level Insight: + impaired insight Judgement: + impaired judgement Vital Signs (Past 24 Hours): Last Vital Signs Temp 36.5 C 05/05/21 12:16 Pulse 63 05/05/21 12:16 Resp 16 05/05/21 12:16 BP 129/68 05/05/21 12:16 Pulse Ox 97 05/05/21 12:16 Review of Systems All systems reviewed & are unremarkable except as noted in HPI & below Results & Data ([facility]) Laboratory Results Na+ 132, nml TSH Diagnostic Findings EKG QTc 445 ms Medications Administered Amlodipine Besylate (Amlodipine Besylate 5 Mg Tab) 2.5 mg PO DAILY [facility] Stop: 06/04/21 08:59 Last Admin: 05/05/21 09:00 Dose: 2.5 mg Documented by: [id number] Aspirin (Aspirin 81 Mg Ectab) 81 mg PO DAILY [facility] Stop: 06/04/21 08:59 Last Admin: 05/05/21 09:00 Dose: 81 mg Documented by: [id number] Atorvastatin Calcium (Atorvastatin 40 Mg Tab) 40 mg PO DAILY [facility] Stop: 06/04/21 08:59 Last Admin: 05/05/21 09:00 Dose: 40 mg Documented by: [id number] Citalopram Hydrobromide (Citalopram 20 Mg Tab) 20 mg PO DAILY [facility] Stop: 06/04/21 08:59 Last Admin: 05/05/21 09:00 Dose: 20 mg Documented by: [id number] Clonazepam (Clonazepam 1 Mg Tab) 1 mg PO BID [facility] Stop: 06/03/21 20:59 Last Admin: 05/05/21 09:04 Dose: 1 mg Documented by: [id number] Admin: 05/04/21 22:56 Dose: 1 mg Documented by: [id number] Clopidogrel Bisulfate (Clopidogrel Bisulfate 75 Mg Tab) 75 mg PO DAILY [facility] Stop: 06/04/21 08:59 Last Admin: 05/05/21 09:00 Dose: 75 mg Documented by: [id number] Docusate Sodium (Docusate Sodium 100 Mg Cap) 100 mg PO DAILY [facility] Stop: 06/04/21 08:59 Last Admin: 05/05/21 09:00 Dose: 100 mg Documented by: [id number] Doxycycline Hyclate (Doxycycline Hyclate 100 Mg Cap) 100 mg PO BID [facility]; Protocol Stop: 05/11/21 20:59 Last Admin: 05/05/21 08:59 Dose: 100 mg Documented by: [id number] Admin: 05/04/21 22:57 Dose: 100 mg Documented by: [id number] Ezetimibe (Ezetimibe 10 Mg Tablet) 10 mg PO DAILY [facility] Stop: 06/04/21 08:59 Last Admin: 05/05/21 09:00 Dose: 10 mg Documented by: [id number] Fluticasone/Vilanterol (Fluticasone/Vilanterol 200/25mcg 14 Puffs/Inhaler) 1 puffs INH DAILY [facility] Stop: 06/04/21 08:59 Last Admin: 05/05/21 08:59 Dose: 1 puffs Documented by: [id number] Ceftriaxone Sodium 2,000 mg/ (Dextrose) 70 mls @ 100 mls/hr IV Q24H [facility]; Protocol Stop: 05/11/21 20:59 Last Infusion: 05/04/21 23:54 Dose: 0 mls/hr Documented by: [id number] Admin: 05/04/21 22:49 Dose: 100 mls/hr Documented by: [id number] Metoprolol Tartrate (Metoprolol Tartrate 25 Mg Tab) 25 mg PO BID [facility] Stop: 06/03/21 20:59 Last Admin: 05/05/21 08:59 Dose: 25 mg Documented by: [id number] Admin: 05/04/21 22:57 Dose: 25 mg Documented by: [id number] Multivitamins (Multivitamin Tab) 1 tab PO DAILY [facility] Stop: 06/04/21 08:59 Last Admin: 05/05/21 09:00 Dose: 1 tab Documented by: [id number] Olanzapine (Olanzapine 10 Mg Tab) 10 mg PO DAILY [facility] Stop: 06/04/21 08:59 Last Admin: 05/05/21 09:00 Dose: 10 mg Documented by: [id number] Pantoprazole Sodium (Pantoprazole 40 Mg Tab) 40 mg PO DAILY [facility] Stop: 06/04/21 08:59 Last Admin: 05/05/21 09:00 Dose: 40 mg Documented by: [id number] Polyethylene Glycol (Polyethylene (Miralax) 17 Gm Pack) 17 gm PO DAILY PRN PRN Reason: Constipation Stop: 06/03/21 20:21 Last Admin: 05/05/21 09:48 Dose: 17 gm Documented by: [id number] Risperidone (Risperidone 3 Mg Tablet) 3 mg PO HS [facility] Stop: 06/03/21 20:59 Last Admin: 05/04/21 22:57 Dose: 3 mg Documented by: [id number] Risperidone (Risperidone 2 Mg Tablet) 2 mg PO DAILY [facility] Stop: 06/04/21 08:59 Last Admin: 05/05/21 08:59 Dose: 2 mg Documented by: [id number] Coding Level of Care Code 19065 Inpt Consult Level 3 Diagnoses Encephalopathy G93.40 Schizophrenia F20.9 Acute hyponatremia E87.1
[2021-05-05] MEDS: ENOXAPARIN INJ 40 MG/0.4 ML SYR SQ SCH (17:19)
[2021-05-05] MEDS: METOPROLOL TARTRATE 50 MG TAB PO SCH (20:35)
[2021-05-05] MEDS: OLANZAPINE 2.5 MG TAB PO SCH (20:35)
[2021-05-05] MEDS: cefTRIAXone SODIUM 2,000 MG in DEXTROSE 5% 50 ML IV SCH (20:42)
[2021-05-06 06:59] LABS: Hematocrit (blood only) 39.1 % (42-52); Hemoglobin 13.2 g/dL (14.0-18.0); Mean Corpuscular Hemoglobin 30.7 pg (25-34); Mean Corpuscular Hgb Conc 33.8 g/dL (32-36); Mean Corpuscular Volume 90.9 fL (80-100); Mean Platelet Volume 9.5 fL (7.4-10.4); Platelet Count 212 K/uL (130-400); RDW Coefficient of Variation 13.4 % (11.5-14.5); RDW Standard Deviation 44.2 fL (36.4-46.3); White Blood Count 8.44 K/uL (4.8-10.8)
[2021-05-06 07:32] LABS: Anion Gap 6 (3-11); Blood Urea Nitrogen 14 mg/dl (6-23); Calcium 8.5 mg/dl (8.5-10.1); Carbon Dioxide 27 mmol/L (21-32); Chloride 97 mmol/L (98-107); Est GFR (African American) 71.8 ml/min; Est GFR (Non-African American) 61.9 ml/min; Glucose 117 mg/dl (70-99(Fasting)); Potassium 3.7 mmol/L (3.5-5.1); Sodium 130 mmol/L (136-145)
[2021-05-06] MEDS: ESCITALOPRAM OXALATE 10 MG TAB PO SCH (09:43)
[2021-05-06] MEDS: DOXYCYCLINE HYCLATE 100 MG CAP PO SCH (09:43)
[2021-05-06] MEDS: EZETIMIBE 10 MG TABLET PO SCH (09:44)
[2021-05-06] MEDS: ATORVASTATIN 40 MG TAB PO SCH (09:44)
[2021-05-06] MEDS: ASPIRIN 81 MG ECTAB PO SCH (09:44)
[2021-05-06] MEDS: CLOPIDOGREL BISULFATE 75 MG TAB PO SCH (09:44)
[2021-05-06] MEDS: METOPROLOL TARTRATE 50 MG TAB PO SCH ×2 (09:44→21:05)
[2021-05-06] MEDS: PANTOprazole 40 MG TAB PO SCH (09:44)
[2021-05-06] MEDS: MULTIVITAMIN TAB PO SCH (09:44)
[2021-05-06] MEDS: FLUTICASONE/VILANTEROL 200/25MCG 14 PUFFS/INHALER INH SCH (09:45)
[2021-05-06] MEDS: DOCUSATE SODIUM 100 MG CAP PO SCH (09:45)
--- NOTE | 2021-05-06 11:38 | Electrocardiogram Report ---
Test Reason : Blood Pressure : / mmHG Vent. Rate : 068 BPM Atrial Rate : 068 BPM P-R Int : 222 ms QRS Dur : 096 ms QT Int : 418 ms P-R-T Axes : 059 023 -06 degrees QTc Int : 444 ms Sinus rhythm with 1st degree A-V block with frequent Premature ventricular complexes and Premature at rial complexes Otherwise normal ECG When compared with ECG of 05-MAY-2021 06:43, Premature atrial complexes are now Present Confirmed by Colt Scott ([id number]) on 05/06/2021 11:38:09 AM Referred By: REFERRED SELF Confirmed By:Colt Scott
--- NOTE | 2021-05-06 12:55 | Psychiatric Progress Note ---
Date of Service May 06, 2021 Impression / Recommendations Impression 04/26/[address] Bello reviewed: This is a 71 yo old admitted for dizziness and cardiac problems. Diagnostically consistent with encephalopathy/hypoactive delirium likely superimposed on dementia complicated by a history of schizophrenia and depression. Suspect hyponatremia may be contributing to hypoactive delirium. Given his cardiac problems, recent stent placement, and ongoing hyponatremia recommend decreasing SSRI dose and switching from citalopram to escitalopram which has a more favorable cardiac risk profile and otherwise similar mechanism of action. If hyponatremia persists will need to weigh risks/benefits of SSRI. Dizziness prior to admission could certainly be exacerbated or caused by orthostatic hypotension from antipsychotic medications, especially given high doses for someone of his age and especially if early neurocognitive disorder is also present. Recommend stopping risperidone and reducing dose of zyprexa and dosing at nighttime to reduce daytime fatigue. Given history of schizophrenia seems appropriate to keep him on at least one antipsychotic medication though note all antipsychotic medications carry black box warning for increased risk of all-cause mortality in setting of dementia. Would also stop Klonopin as this can worsen delirium, especially in someone with dementia process, and can contribute to dizziness, increase fall risk and lead to further cognitive impairment. Does not appear that he's been on regular benzos since August 2020 so low concern for withdrawal delirium with abrupt discontinuation. -Agree with melatonin 4.5 mg qhs for delirium (consider scheduling at qhs instead of prn) -Stop clonazepam, risperidone and citalopram -Start escitalopram 10mg qd and follow Na+ closely (reduce to 5mg qd or stop if Na+ worsens or does not improve) -Decrease zyprexa to 2.5 mg and give at qHS -Continue medical workup to rule out and treat any underlying causes contributing to potential delirium, avoid or limit use of deliriogenic medications (benzodiazepines, opioids, anticholinergics) -Continue with delirium prevention measures: raising blinds during the day, closing at night, frequent re-orientation, contact with family/friends, explaining procedures/nursing care measures prior to physical contact, correct any hearing and visual impairments -For behavioral emergency: olanzapine 2.5 mg IM x 1 (DO NOT exceed 10mg per 24 hours, check EKG if IM dose required, NEVER co-administer with IM or IV b enzodiazepines). -They do not meet criteria for inpatient psychiatric hospitalization as primary cause of current symptoms is felt to be due to delirium and/or dementia -Psychiatric liason to gather further history after he returns from CT scan, will determine if further outpatient supports would be beneficial. (1) Encephalopathy: (2) Schizophrenia: (3) Acute hyponatremia: continue current meds and treatment plan, if sodium doesn't rebound can hold Lexapro and restart at a later date. Interval History Identifying Information 71 yo male with prior diagnosis of schizophrenia, delirium, cognitive change admit with AMS. Chief Complaint "I'm feeling so much better, like I have some pep to get up and do things". Review of Systems Notes denies pain, dizziness, is hungry for his meal Subjective Subjective Patient was seen & assessed and interval progress reviewed with nursing. Interim progress reviewed. He is bright and interactive, cooperative with care. He is more awake. Physical Exam Psychiatric Orientation: alert and cooperative Apperance: appropriately groomed Eye Contact: good eye contact Motor Behavior: no abnormal motor movements Speech: normal rate/rhythm/volume of speech Affect: euthymic affect Mood: no depressed mood and no anxious mood Thought Process: goal directed thought process Thought Content: reality based without delusions Suicidal Thoughts: denies suicidal thoughts Homicidal Thoughts: denies homicidal thoughts Hallucinations: no auditory hallucinations and no visual hallucinations Cognition: attention grossly intact and language grossly intact Vital Signs (Past 24 Hours) Last Vital Signs Temp 36.5 C 05/06/21 11:46 Pulse 69 05/06/21 11:46 Resp 18 05/06/21 11:46 BP 156/77 H 05/06/21 11:46 Pulse Ox 97 05/06/21 11:46 Results & Data ([facility]) Laboratory Results Laboratory Results - last 24 hr 05/05/21 05/06/21 05/06/21 13:11 06:18 06:18 WBC 8.44 RBC 4.30 L Hgb 13.2 L Hct 39.1 L MCV 90.9 MCH 30.7 MCHC 33.8 RDW Std Deviation 44.2 RDW Coeff of Radha 13.4 Plt Count 212 MPV 9.5 ABG pH 7.43 ABG pCO2 34 L ABG pO2 69 L ABG HCO3 22 ABG O2 Saturation 95.0 ABG Base Excess -1.5 Jasvir Test Pos Barometric Pressure 731.4 Oxygen Given ROOM AIR Sodium 130 L Potassium 3.7 Chloride 97 L Carbon Dioxide 27 Anion Gap 6 BUN 14 Creatinine 1.17 Est Cr Clr Drug Dosing Not Reportable Est GFR ( Amer) 71.8 Est GFR (Non-Af Amer) 61.9 BUN/Creatinine Ratio 12.0 Glucose 117 H Calcium 8.5 Current Inpatient Medications Current Inpatient Medications: Current Inpatient Medications Acetaminophen (Acetaminophen 325 Mg Tab) 650 mg PO Q4H PRN PRN Reason: Pain or Fever Stop: 06/03/21 20:21 Al Hydrox/Mg Hydrox/Simethicone (Aluminum/Magnesium Susp 30 Ml Udc) 15 ml PO Q4H PRN PRN Reason: Dyspepsia Stop: 06/03/21 20:21 Albuterol (Albuterol Hfa 8 Gm Inhaler) 2 puffs INH Q6H PRN PRN Reason: Shortness Of Breath Stop: 06/03/21 20:21 Amlodipine Besylate (Amlodipine Besylate 5 Mg Tab) 2.5 mg PO DAILY [facility] Stop: 06/04/21 08:59 Last Admin: 05/05/21 09:00 Dose: 2.5 mg Documented by: Aspirin (Aspirin 81 Mg Ectab) 81 mg PO DAILY [facility] Stop: 06/04/21 08:59 Last Admin: 05/06/21 09:44 Dose: 81 mg Documented by: Atorvastatin Calcium (Atorvastatin 40 Mg Tab) 40 mg PO DAILY [facility] Stop: 06/04/21 08:59 Last Admin: 05/06/21 09:44 Dose: 40 mg Documented by: Clopidogrel Bisulfate (Clopidogrel Bisulfate 75 Mg Tab) 75 mg PO DAILY [facility] Stop: 06/04/21 08:59 Last Admin: 05/06/21 09:44 Dose: 75 mg Documented by: Docusate Sodium (Docusate Sodium 100 Mg Cap) 100 mg PO DAILY [facility] Stop: 06/04/21 08:59 Last Admin: 05/06/21 09:45 Dose: Not Given Documented by: Doxycycline Hyclate (Doxycycline Hyclate 100 Mg Cap) 100 mg PO BID [facility]; Protocol Stop: 05/11/21 20:59 Last Admin: 05/06/21 09:43 Dose: 100 mg Documented by: Ezetimibe (Ezetimibe 10 Mg Tablet) 10 mg PO DAILY [facility] Stop: 06/04/21 08:59 Last Admin: 05/06/21 09:44 Dose: 10 mg Documented by: Enoxaparin Sodium (Enoxaparin Inj 40 Mg/0.4 Ml Syr) 40 mg SQ Q24H [facility] Stop: 06/04/21 15:59 Last Admin: 05/05/21 17:19 Dose: 40 mg Documented by: Escitalopram Oxalate (Escitalopram Oxalate 10 Mg Tab) 10 mg PO QAM [facility] Stop: 06/05/21 08:59 Last Admin: 05/06/21 09:43 Dose: 10 mg Documented by: Fluticasone/Vilanterol (Fluticasone/Vilanterol 200/25mcg 14 Puffs/Inhaler) 1 puffs INH DAILY [facility] Stop: 06/04/21 08:59 Last Admin: 05/06/21 09:45 Dose: 1 puffs Documented by: Ceftriaxone Sodium 2,000 mg/ (Dextrose) 70 mls @ 100 mls/hr IV Q24H [facility]; Protocol Stop: 05/11/21 20:59 Last Infusion: 05/05/21 21:25 Dose: Infused Documented by: Magnesium Hydroxide (Magnesium Hydroxide Susp 30 Ml Udc) 30 ml PO Q12H PRN PRN Reason: Constipation Stop: 06/03/21 20:21 Melatonin (Melatonin 3 Mg Tab) 4.5 mg PO HS PRN PRN Reason: Sleep Menthol (Cough Drop (Sugar Free) Yao 24 Yao/1 Box) 1 yao BUCCAL PRN PRN PRN Reason: Sore Throat Stop: 06/04/21 14:04 Metoprolol Tartrate (Metoprolol Tartrate 50 Mg Tab) 50 mg PO BID [facility] Stop: 06/04/21 20:59 Last Admin: 05/06/21 09:44 Dose: Not Given Documented by: Multivitamins (Multivitamin Tab) 1 tab PO DAILY [facility] Stop: 06/04/21 08:59 Last Admin: 05/06/21 09:44 Dose: 1 tab Documented by: Olanzapine (Olanzapine 2.5 Mg Tab) 2.5 mg PO HS [facility] Stop: 06/04/21 20:59 Last Admin: 05/05/21 20:35 Dose: 2.5 mg Documented by: Ondansetron HCl (Ondansetron Inj 2 Mg/Ml 2 Ml Vial) 4 mg IV Q6H PRN PRN Reason: Nausea Stop: 06/03/21 20:21 Pantoprazole Sodium (Pantoprazole 40 Mg Tab) 40 mg PO DAILY [facility] Stop: 06/04/21 08:59 Last Admin: 05/06/21 09:44 Dose: 40 mg Documented by: Polyethylene Glycol (Polyethylene (Miralax) 17 Gm Pack) 17 gm PO DAILY PRN PRN Reason: Constipation Stop: 06/03/21 20:21 Last Admin: 05/05/21 09:48 Dose: 17 gm Documented by:
--- NOTE | 2021-05-06 15:24 | Cardiology Progress Note ---
Date of Service May 06, 2021 Assessment & Plan (1) Lightheadedness: Plan: Stable coronary heart disease, status post recent percutaneous coronary mention, continue dual antiplatelet therapy with aspirin clopidogrel. Review of telemetry, the frequency of the supraventricular and ventricular ectopy appears to have slightly improved over the last 24 hours. Psychiatry input noted and appreciated. Continue metoprolol tartrate 50 mg twice daily. Continue Lovenox for DVT prophylaxis. Admission and Anticipated Discharge Date Admission Date: May 04, 2021 Subjective Patient without subjective complaints. States he feels better overall. He was able to tell me that he is in [facility], but unable to name the hospital. Review of Systems Review of Systems: Unobtainable due to cognitive status Physical Exam Constitutional: no acute distress Respiratory: normal respiratory effort, lungs clear to auscultation Cardiovascular: RRR, no murmur, no edema Neurologic: Conversant, moves all 4 extremities Results & Data ([facility]) Vital Signs (Past 12 Hours) Vital Signs Temp Pulse Pulse Resp BP Pulse Ox 05/06/21 11:46 36.5 C 69 18 156/77 H 97 05/06/21 08:10 75 05/06/21 08:07 37.0 C 50 L 17 103/59 L 96 Laboratory Results CBC 05/06/21 Range/Units 06:18 WBC 8.44 (4.8-10.8) K/uL RBC 4.30 L (4.7-6.1) M/uL Hgb 13.2 L (14.0-18.0) g/dL Hct 39.1 L (42-52) % Plt Count 212 (130-400) K/uL Comprehensive Metabolic Panel 05/06/21 Range/Units 06:18 Sodium 130 L (136-145) mmol/L Potassium 3.7 (3.5-5.1) mmol/L Chloride 97 L (98-107) mmol/L Carbon Dioxide 27 (21-32) mmol/L BUN 14 (6-23) mg/dl Creatinine 1.17 (0.6-1.4) mg/dl Glucose 117 H (70-99(Fasting)) mg/dl Calcium 8.5 (8.5-10.1) mg/dl Intake and Output 05/06/21 05/06/21 05/06/21 06:59 14:59 22:59 Intake Total 50 / 520 460 / 460 Output Total 700 / 700 602 / 602 Balance -650 / -180 -142 / -142 Intake: Oral 50 / 450 460 / 460 Output: Urine 700 / 700 600 / 600 # Bowel Movements 2 / 2 Diagnostic Findings EKG performed today reveals sinus rhythm at 60 bpm with first-degree AV block, frequent premature atrial contractions, frequent premature ventricular contractions
--- NOTE | 2021-05-06 15:57 | Hospitalist Progress Note ---
Date of Service May 06, 2021 Assessment & Plan (1) Encephalopathy: Plan: Possible early onset dementia per notes, but official psychiatry notes unavailable from OSH. Underlying depression. Stopping clonazpem and risperidone and reducing his olanzapine to 2.5mg and switching it to night time administration has greatly improved his symptoms. Still some dizziness this morning but much better overall. (2) Lightheadedness: Plan: 2/2 polypharmacy and medication side effects. Med changes as above. Cont to monitor. (3) Bigeminy: Plan: PVC ablation in 2018, cont metoprolol. Benign per cardiology. (4) Leukocytosis: Plan: There was a question of pneumonia on the CT, however, patient has a normal procalcitonin and no respiratory symptoms. He is afebrile and leukocytosis has resolved. Will stop antibiotics at this time and cont to monitor progress. (5) Acute hyponatremia: Plan: Possibly 2/2 lasix which has been held. May also be related to SSRI-Improved to 132. Patient reports drinking 4-5 L of water daily at home on average. will add fluid restriction and cont to monitor. This will not keep him in the hospital if still 130-135. May cont workup as outpatient if needed. Patient is clinically much better after medication adjustments. (6) CAD (coronary artery disease): Plan: s/p CABG in 2018, recent stent placement at OSH one month ago-records not available. Cont ASA, Plavix, statin. Metoprolol held overnight with reported bradycardia on arrival to the ER, but currently active. He is in the process of transferring his outpatient cardiology care to [facility]. (7) HTN (hypertension): Plan: chronic, controlled, cont amlodipine 2.5mg daily (8) DVT prophylaxis: Plan: Lovenox Full Code Dispo-uncertain at this time Guerline Odom DO [facility] Hospitalist Admission and Anticipated Discharge Date Admission Date: May 04, 2021 Subjective 71 yo M wtih h/o CABG in 2018, PVC ablation in the past presents with ongoing dizziness for pst couple of weeks. Recent cardiac stent one month ago, h/o depression on multiple mood altering medications. Today he was much brighter and energetic overall We discussed that everytime he took his medication at home, he felt poorly but he kept doing it At one point he remembers calling 911 an hour after taking his meds because he felt his heart was pounding so hard. He feels much less dizzy today and greatly improved overall. He is starting to piece together how his medications have been making him feel, and he expressed gratitude for the changes made States his heart rate and palpitations have improved. Review of Systems Review of Systems: All systems were reviewed and negative except as indicated in subjective above. Physical Exam Physical Exam: CONSTITUTIONAL: WNWD, vitals as above, generally well- appearing, NAD EYES: Pupils are round and equal bilaterally, normal conjunctivae ENT: external ear and nose normal, NECK: trachea midline, RESPIRATORY: clear to auscultation bilaterally, no crackles, rales or wheezes, normal respiratory effort CARDIOVASCULAR: regular rate and rhythm, S1 and 2 heard without murmurs, gallops or rubs, no JVD, no peripheral edema, CHEST: inspection of chest was normal GASTROINTESTINAL: soft, nontender, ND, no guarding MUSCULOSKELETAL: strength 5/5 throughout, head is normocephalic and atraumatic, SKIN: warm and dry, NEUROLOGIC: CN 2-12 grossly intact, no sensory deficit, normal cognition, normal speech, no tremor PSYCHIATRIC: alert cooperative and oriented to person, place and time. Results & Data Results & Data ([facility]) Vital Signs (Past 12 Hours) Vital Signs Temp Pulse Pulse Resp BP Pulse Ox 05/06/21 11:46 36.5 C 69 18 156/77 H 97 05/06/21 08:10 75 05/06/21 08:07 37.0 C 50 L 17 103/59 L 96 Laboratory Results Short CBC 05/06/21 Range/Units 06:18 WBC 8.44 (4.8-10.8) K/uL Hgb 13.2 L (14.0-18.0) g/dL Hct 39.1 L (42-52) % Plt Count 212 (130-400) K/uL BMP 05/06/21 06:18 Sodium 130 L Potassium 3.7 Chloride 97 L Carbon Dioxide 27 BUN 14 Creatinine 1.17 Glucose 117 H Calcium 8.5 Medications Administered Current Inpatient Medications Acetaminophen (Acetaminophen 325 Mg Tab) 650 mg PO Q4H PRN PRN Reason: Pain or Fever Stop: 06/03/21 20:21 Al Hydrox/Mg Hydrox/Simethicone (Aluminum/Magnesium Susp 30 Ml Udc) 15 ml PO Q4H PRN PRN Reason: Dyspepsia Stop: 06/03/21 20:21 Albuterol (Albuterol Hfa 8 Gm Inhaler) 2 puffs INH Q6H PRN PRN Reason: Shortness Of Breath Stop: 06/03/21 20:21 Amlodipine Besylate (Amlodipine Besylate 5 Mg Tab) 2.5 mg PO DAILY [facility] Stop: 06/04/21 08:59 Last Admin: 05/05/21 09:00 Dose: 2.5 mg Documented by: Aspirin (Aspirin 81 Mg Ectab) 81 mg PO DAILY [facility] Stop: 06/04/21 08:59 Last Admin: 05/06/21 09:44 Dose: 81 mg Documented by: Atorvastatin Calcium (Atorvastatin 40 Mg Tab) 40 mg PO DAILY [facility] Stop: 06/04/21 08:59 Last Admin: 05/06/21 09:44 Dose: 40 mg Documented by: Clopidogrel Bisulfate (Clopidogrel Bisulfate 75 Mg Tab) 75 mg PO DAILY [facility] Stop: 06/04/21 08:59 Last Admin: 05/06/21 09:44 Dose: 75 mg Documented by: Docusate Sodium (Docusate Sodium 100 Mg Cap) 100 mg PO DAILY [facility] Stop: 06/04/21 08:59 Last Admin: 05/06/21 09:45 Dose: Not Given Documented by: Doxycycline Hyclate (Doxycycline Hyclate 100 Mg Cap) 100 mg PO BID [facility]; Protocol Stop: 05/11/21 20:59 Last Admin: 05/06/21 09:43 Dose: 100 mg Documented by: Ezetimibe (Ezetimibe 10 Mg Tablet) 10 mg PO DAILY [facility] Stop: 06/04/21 08:59 Last Admin: 05/06/21 09:44 Dose: 10 mg Documented by: Enoxaparin Sodium (Enoxaparin Inj 40 Mg/0.4 Ml Syr) 40 mg SQ Q24H [facility] Stop: 06/04/21 15:59 Last Admin: 05/05/21 17:19 Dose: 40 mg Documented by: Escitalopram Oxalate (Escitalopram Oxalate 10 Mg Tab) 10 mg PO QAM [facility] Stop: 06/05/21 08:59 Last Admin: 05/06/21 09:43 Dose: 10 mg Documented by: Fluticasone/Vilanterol (Fluticasone/Vilanterol 200/25mcg 14 Puffs/Inhaler) 1 puffs INH DAILY [facility] Stop: 06/04/21 08:59 Last Admin: 05/06/21 09:45 Dose: 1 puffs Documented by: Ceftriaxone Sodium 2,000 mg/ (Dextrose) 70 mls @ 100 mls/hr IV Q24H [facility]; Protocol Stop: 05/11/21 20:59 Last Infusion: 05/05/21 21:25 Dose: Infused Documented by: Magnesium Hydroxide (Magnesium Hydroxide Susp 30 Ml Udc) 30 ml PO Q12H PRN PRN Reason: Constipation Stop: 06/03/21 20:21 Melatonin (Melatonin 3 Mg Tab) 4.5 mg PO HS PRN PRN Reason: Sleep Menthol (Cough Drop (Sugar Free) Yao 24 Yao/1 Box) 1 yao BUCCAL PRN PRN PRN Reason: Sore Throat Stop: 06/04/21 14:04 Metoprolol Tartrate (Metoprolol Tartrate 50 Mg Tab) 50 mg PO BID [facility] Stop: 06/04/21 20:59 Last Admin: 05/06/21 09:44 Dose: Not Given Documented by: Multivitamins (Multivitamin Tab) 1 tab PO DAILY [facility] Stop: 06/04/21 08:59 Last Admin: 05/06/21 09:44 Dose: 1 tab Documented by: Olanzapine (Olanzapine 2.5 Mg Tab) 2.5 mg PO HS [facility] Stop: 06/04/21 20:59 Last Admin: 05/05/21 20:35 Dose: 2.5 mg Documented by: Ondansetron HCl (Ondansetron Inj 2 Mg/Ml 2 Ml Vial) 4 mg IV Q6H PRN PRN Reason: Nausea Stop: 06/03/21 20:21 Pantoprazole Sodium (Pantoprazole 40 Mg Tab) 40 mg PO DAILY [facility] Stop: 06/04/21 08:59 Last Admin: 05/06/21 09:44 Dose: 40 mg Documented by: Polyethylene Glycol (Polyethylene (Miralax) 17 Gm Pack) 17 gm PO DAILY PRN PRN Reason: Constipation Stop: 06/03/21 20:21 Last Admin: 05/05/21 09:48 Dose: 17 gm Documented by: (1) Leukocytosis Leukocytosis type: unspecified Qualified Code(s): D72.829 - Elevated white blood cell count, unspecified
[2021-05-06] MEDS: ENOXAPARIN INJ 40 MG/0.4 ML SYR SQ SCH (17:41)
[2021-05-06] MEDS: ACETAMINOPHEN 325 MG TAB PO PRN (21:04)
[2021-05-06] MEDS: OLANZAPINE 2.5 MG TAB PO SCH (21:05)
[2021-05-06] MEDS: MELATONIN 3 MG TAB PO PRN (21:05)
[2021-05-07 07:15] LABS: Anion Gap 4 (3-11); Blood Urea Nitrogen 14 mg/dl (6-23); Calcium 8.2 mg/dl (8.5-10.1); Carbon Dioxide 28 mmol/L (21-32); Chloride 99 mmol/L (98-107); Est GFR (African American) 79.1 ml/min; Est GFR (Non-African American) 68.2 ml/min; Glucose 101 mg/dl (70-99(Fasting)); Sodium 131 mmol/L (136-145)
[2021-05-07] MEDS: ACETAMINOPHEN 325 MG TAB PO PRN ×2 (07:50→23:48)
[2021-05-07] MEDS: MULTIVITAMIN TAB PO SCH (07:51)
[2021-05-07] MEDS: PANTOprazole 40 MG TAB PO SCH (07:51)
[2021-05-07] MEDS: ATORVASTATIN 40 MG TAB PO SCH (07:51)
[2021-05-07] MEDS: ESCITALOPRAM OXALATE 10 MG TAB PO SCH (07:51)
[2021-05-07] MEDS: ASPIRIN 81 MG ECTAB PO SCH (07:51)
[2021-05-07] MEDS: EZETIMIBE 10 MG TABLET PO SCH (07:51)
[2021-05-07] MEDS: CLOPIDOGREL BISULFATE 75 MG TAB PO SCH (07:51)
[2021-05-07] MEDS: DOCUSATE SODIUM 100 MG CAP PO SCH (07:52)
[2021-05-07] MEDS: FLUTICASONE/VILANTEROL 200/25MCG 14 PUFFS/INHALER INH SCH (07:52)
[2021-05-07] MEDS: METOPROLOL TARTRATE 50 MG TAB PO SCH (07:53)
--- NOTE | 2021-05-07 11:34 | Cardiology Progress Note ---
Date of Service May 07, 2021 Assessment & Plan (1) Lightheadedness: Plan: Stable coronary heart disease, status post recent percutaneous coronary mention, continue dual antiplatelet therapy with aspirin clopidogrel. It is doubtful that his supraventricular and ventricular ectopy are the source of his dizziness in the setting of improved blood pressure. Psychiatry input noted and appreciated. Continue metoprolol tartrate 50 mg twice daily. Continue Lovenox for DVT prophylaxis. Admission and Anticipated Discharge Date Admission Date: May 04, 2021 Subjective Patient seen. Difficult to obtain subjective history due to his underlying cognitive/mental health status. States he had some degree of dizziness walking to the bathroom yesterday. Blood pressure normal, telemetry reveals a stable degree of premature atrial contractions, premature ventricular contractions. Physical Exam Constitutional: no acute distress Respiratory: normal respiratory effort, lungs clear to auscultation Cardiovascular: RRR, no murmur, no edema Results & Data ([facility]) Vital Signs (Past 12 Hours) Vital Signs Temp Pulse Pulse Resp BP Pulse Ox 05/07/21 08:14 81 05/07/21 08:00 36.6 C 60 18 131/67 96 05/07/21 03:18 36.7 C 56 L 16 120/73 93 05/07/21 00:11 36.8 C 62 16 114/63 97 Laboratory Results Comprehensive Metabolic Panel 05/07/21 Range/Units 06:08 Sodium 131 L (136-145) mmol/L Potassium 4.0 (3.5-5.1) mmol/L Chloride 99 (98-107) mmol/L Carbon Dioxide 28 (21-32) mmol/L BUN 14 (6-23) mg/dl Creatinine 1.08 (0.6-1.4) mg/dl Glucose 101 H (70-99(Fasting)) mg/dl Calcium 8.2 L (8.5-10.1) mg/dl Intake and Output 05/06/21 05/07/21 05/07/21 22:59 06:59 14:59 Intake Total 600 / 1460 400 / 1460 Output Total 1451 / 2353 300 / 2353 320 / 320 Balance -851 / -893 100 / -893 -320 / -320 Intake: Oral 600 / 1460 400 / 1460 Output: Urine 1450 / 2350 300 / 2350 320 / 320 # Bowel Movements 1 / 3 Other: Weight 92.7 kg Weight Measurement Method Built in [facility]
--- NOTE | 2021-05-07 14:54 | Hospitalist Progress Note ---
Date of Service May 07, 2021 Assessment & Plan (1) Encephalopathy: Plan: Resolved with medication changes. Specifically clonazepam and risepridone was stopped, olanzapine was changed to qHS. Possible early onset dementia per notes, but official psychiatry notes unavailable from OSH. Underlying depression. Notably felt somnolent this morning after meds. Held tylenol and decreased metoprolol from 50mg BID back to his home dose of 25mg BID. (2) Lightheadedness: Plan: 2/2 polypharmacy and medication side effects. Resolved with above medication changes. (3) Bigeminy: Plan: PVC ablation in 2018, cont metoprolol. Benign per cardiology. (4) Leukocytosis: Plan: There was a question of pneumonia on the CT, however, patient has a normal procalcitonin and no respiratory symptoms. He is afebrile and leukocytosis has resolved. Cont to monitor off abx. (5) Acute hyponatremia: Plan: Possibly 2/2 lasix which has been held. May also be related to SSRI and this may be his baseline. Patient reports drinking 4-5 L of water daily at home on average. Cont with fluid restriction and cont to monitor. This will not keep him in the hospital if still 130-135. May cont workup as outpatient if needed. Patient is clinically much better after medication adjustments. (6) CAD (coronary artery disease): Plan: s/p CABG in 2018, recent stent placement at OSH one month ago-records not available. Cont ASA, Plavix, statin. Metoprolol held overnight with reported bradycardia on arrival to the ER, but currently active. He is in the process of transferring his outpatient cardiology care to [facility]. (7) HTN (hypertension): Plan: chronic, controlled, cont amlodipine 2.5mg daily (8) DVT prophylaxis: Plan: Lovenox Full Code Dispo-transfer to floor, awaiting PT and OT exams. Guerline Odom DO [facility] Hospitalist Admission and Anticipated Discharge Date Admission Date: May 04, 2021 Subjective 71 yo M wt h/o CABG in 2018, PVC ablation in the past presents with ongoing dizziness for pst couple of weeks. Recent cardiac stent one month ago, h/o depression on multiple mood altering medications. [place] "sleepy after my morning meds" Denies any dizziness or palpitations Had some difficulty ambulating with his cane into the bathroom yesterday and has not been out of bed today. Review of Systems Review of Systems: All systems were reviewed and negative except as indicated in subjective above. Physical Exam Physical Exam: CONSTITUTIONAL: WNWD, vitals as above, generally well- appearing, NAD EYES: Pupils are round and equal bilaterally, normal conjunctivae ENT: external ear and nose normal, NECK: trachea midline, RESPIRATORY: clear to auscultation bilaterally, no crackles, rales or wheezes, normal respiratory effort CARDIOVASCULAR: regular rate and rhythm, S1 and 2 heard without murmurs, gallops or rubs, no JVD, no peripheral edema, CHEST: inspection of chest was normal GASTROINTESTINAL: soft, nontender, ND, no guarding MUSCULOSKELETAL: strength 5/5 throughout, head is normocephalic and atraumatic, SKIN: warm and dry, NEUROLOGIC: CN 2-12 grossly intact, no sensory deficit, normal cognition, normal speech, no tremor PSYCHIATRIC: alert cooperative and oriented to person, place and time. Results & Data Results & Data ([facility]) Vital Signs (Past 12 Hours) Vital Signs Temp Pulse Pulse Resp BP Pulse Ox 05/07/21 08:14 81 05/07/21 08:00 36.6 C 60 18 131/67 96 05/07/21 03:18 36.7 C 56 L 16 120/73 93 Laboratory Results [facility] 05/07/21 06:08 Sodium 131 L Potassium 4.0 Chloride 99 Carbon Dioxide 28 BUN 14 Creatinine 1.08 Glucose 101 H Calcium 8.2 L Medications Administered Current Inpatient Medications Acetaminophen (Acetaminophen 325 Mg Tab) 650 mg PO Q4H PRN PRN Reason: Pain or Fever Stop: 06/03/21 20:21 Last Admin: 05/07/21 07:50 Dose: 650 mg Documented by: Al Hydrox/Mg Hydrox/Simethicone (Aluminum/Magnesium Susp 30 Ml Udc) 15 ml PO Q4H PRN PRN Reason: Dyspepsia Stop: 06/03/21 20:21 Albuterol (Albuterol Hfa 8 Gm Inhaler) 2 puffs INH Q6H PRN PRN Reason: Shortness Of Breath Stop: 06/03/21 20:21 Amlodipine Besylate (Amlodipine Besylate 5 Mg Tab) 2.5 mg PO DAILY [facility] Stop: 06/04/21 08:59 Last Admin: 05/05/21 09:00 Dose: 2.5 mg Documented by: Aspirin (Aspirin 81 Mg Ectab) 81 mg PO DAILY [facility] Stop: 06/04/21 08:59 Last Admin: 05/07/21 07:51 Dose: 81 mg Documented by: Atorvastatin Calcium (Atorvastatin 40 Mg Tab) 40 mg PO DAILY [facility] Stop: 06/04/21 08:59 Last Admin: 05/07/21 07:51 Dose: 40 mg Documented by: Clopidogrel Bisulfate (Clopidogrel Bisulfate 75 Mg Tab) 75 mg PO DAILY [facility] Stop: 06/04/21 08:59 Last Admin: 05/07/21 07:51 Dose: 75 mg Documented by: Docusate Sodium (Docusate Sodium 100 Mg Cap) 100 mg PO DAILY [facility] Stop: 06/04/21 08:59 Last Admin: 05/07/21 07:52 Dose: Not Given Documented by: Ezetimibe (Ezetimibe 10 Mg Tablet) 10 mg PO DAILY [facility] Stop: 06/04/21 08:59 Last Admin: 05/07/21 07:51 Dose: 10 mg Documented by: Enoxaparin Sodium (Enoxaparin Inj 40 Mg/0.4 Ml Syr) 40 mg SQ Q24H [facility] Stop: 06/04/21 15:59 Last Admin: 05/06/21 17:41 Dose: 40 mg Documented by: Escitalopram Oxalate (Escitalopram Oxalate 10 Mg Tab) 10 mg PO QAM [facility] Stop: 06/05/21 08:59 Last Admin: 05/07/21 07:51 Dose: 10 mg Documented by: Fluticasone/Vilanterol (Fluticasone/Vilanterol 200/25mcg 14 Puffs/Inhaler) 1 puffs INH DAILY [facility] Stop: 06/04/21 08:59 Last Admin: 05/07/21 07:52 Dose: 1 puffs Documented by: Magnesium Hydroxide (Magnesium Hydroxide Susp 30 Ml Udc) 30 ml PO Q12H PRN PRN Reason: Constipation Stop: 06/03/21 20:21 Melatonin (Melatonin 3 Mg Tab) 4.5 mg PO HS PRN PRN Reason: Sleep Last Admin: 05/06/21 21:05 Dose: 4.5 mg Documented by: Menthol (Cough Drop (Sugar Free) Ayo 24 Yao/1 Box) 1 yao BUCCAL PRN PRN PRN Reason: Sore Throat Stop: 06/04/21 14:04 Metoprolol Tartrate (Metoprolol Tartrate 25 Mg Tab) 25 mg PO BID [facility] Stop: 06/06/21 20:59 Multivitamins (Multivitamin Tab) 1 tab PO DAILY [facility] Stop: 06/04/21 08:59 Last Admin: 05/07/21 07:51 Dose: 1 tab Documented by: Olanzapine (Olanzapine 2.5 Mg Tab) 2.5 mg PO HS [facility] Stop: 06/04/21 20:59 Last Admin: 05/06/21 21:05 Dose: 2.5 mg Documented by: Ondansetron HCl (Ondansetron Inj 2 Mg/Ml 2 Ml Vial) 4 mg IV Q6H PRN PRN Reason: Nausea Stop: 06/03/21 20:21 Pantoprazole Sodium (Pantoprazole 40 Mg Tab) 40 mg PO DAILY [facility] Stop: 06/04/21 08:59 Last Admin: 05/07/21 07:51 Dose: 40 mg Documented by: Polyethylene Glycol (Polyethylene (Miralax) 17 Gm Pack) 17 gm PO DAILY PRN PRN Reason: Constipation Stop: 06/03/21 20:21 Last Admin: 05/05/21 09:48 Dose: 17 gm Documented by: (1) Leukocytosis Leukocytosis type: unspecified Qualified Code(s): D72.829 - Elevated white blood cell count, unspecified
[2021-05-07] MEDS: ENOXAPARIN INJ 40 MG/0.4 ML SYR SQ SCH (15:55)
[2021-05-07] MEDS: OLANZAPINE 2.5 MG TAB PO SCH (21:27)
[2021-05-07] MEDS: MELATONIN 3 MG TAB PO PRN (21:28)
[2021-05-07] MEDS: METOPROLOL TARTRATE 25 MG TAB PO SCH (21:29)
[2021-05-07] MEDS ORDERED: NITROGLYCERIN SL 0.4 MG/TAB TAB SL STA (22:01)
[2021-05-07 23:07] LABS: Basophils # (auto) 0.08 K/uL (0-0.2); Basophils % (auto) 1.1 %; Eosinophils # (auto) 0.36 K/uL (0-0.5); Eosinophils % (auto) 4.7 %; Hematocrit (blood only) 37.6 % (42-52); Hemoglobin 12.5 g/dL (14.0-18.0); Immature Granulocytes # (auto) 0.05 K/uL (0.00-0.02); Immature Granulocytes % (auto) 0.7 %; Lymphocytes # (auto) 1.84 K/uL (1.2-3.4); Lymphocytes % (auto) 24.2 %; Mean Corpuscular Hemoglobin 30.4 pg (25-34); Mean Corpuscular Hgb Conc 33.2 g/dL (32-36); Mean Corpuscular Volume 91.5 fL (80-100); Mean Platelet Volume 9.4 fL (7.4-10.4); Monocytes % (auto) 9.2 %; Neutrophils # (auto) 4.57 K/uL (1.4-6.5); Neutrophils % (auto) 60.1 %; Platelet Count 203 K/uL (130-400); RDW Coefficient of Variation 13.4 % (11.5-14.5); RDW Standard Deviation 44.7 fL (36.4-46.3); Red Blood Count 4.11 M/uL (4.7-6.1)
[2021-05-07 23:17] LABS: Partial Thromboplastin Ratio 1.1; Partial Thromboplastin Time 30.2 Seconds (21.0-31.0)
[2021-05-07 23:32] LABS: Troponin I < 0.03 ng/ml (0-0.04)
[2021-05-07 23:52] LABS: Magnesium 1.9 mg/dl (1.7-2.4)
--- NOTE | 2021-05-08 00:22 | Communication Note ---
Date of Service: May 08, 2021 Patient complained last night of substernal pain later relieved by nitroglycerin. EKG as per my interpretation:Rate 55, sinus bradycardia, normal axis, no ischemia Troponin less than 0.03 AP Chest pain Rule out ACS hx CAD as per records Follow-up troponin with a.m. labs Will relay to AM provider.
[2021-05-08 04:54] LABS: Partial Thromboplastin Time 27.6 Seconds (21.0-31.0)
[2021-05-08 05:17] LABS: Troponin I < 0.03 ng/ml (0-0.04)
[2021-05-08 05:26] LABS: Anion Gap 3 (3-11); BUN Creatinine Ratio 13.5 (10-20); Blood Urea Nitrogen 13 mg/dl (6-23); Calcium 8.2 mg/dl (8.5-10.1); Carbon Dioxide 27 mmol/L (21-32); Chloride 100 mmol/L (98-107); Est GFR (African American) 91.2 ml/min; Est GFR (Non-African American) 78.7 ml/min; Glucose 94 mg/dl (70-99(Fasting)); Potassium 4.2 mmol/L (3.5-5.1); Sodium 130 mmol/L (136-145)
[2021-05-08] MEDS: ACETAMINOPHEN 325 MG TAB PO PRN ×2 (07:28→12:50)
--- NOTE | 2021-05-08 09:25 | Electrocardiogram Report ---
Test Reason : Blood Pressure : / mmHG Vent. Rate : 055 BPM Atrial Rate : 055 BPM P-R Int : 208 ms QRS Dur : 096 ms QT Int : 446 ms P-R-T Axes : 063 032 014 degrees QTc Int : 426 ms Sinus bradycardia Otherwise normal ECG When compared with ECG of 06-MAY-2021 05:49, Premature ventricular complexes are no longer Present Premature atrial complexes are no longer Present Confirmed by Colt Scott ([id number]) on 05/08/2021 9:24:42 AM Referred By: REFERRED SELF Confirmed By:Colt Scott
[2021-05-08] MEDS: EZETIMIBE 10 MG TABLET PO SCH (09:42)
[2021-05-08] MEDS: METOPROLOL TARTRATE 25 MG TAB PO SCH ×2 (09:42→20:31)
[2021-05-08] MEDS: ESCITALOPRAM OXALATE 10 MG TAB PO SCH (09:42)
[2021-05-08] MEDS: ASPIRIN 81 MG ECTAB PO SCH (09:42)
[2021-05-08] MEDS: PANTOprazole 40 MG TAB PO SCH (09:42)
[2021-05-08] MEDS: MULTIVITAMIN TAB PO SCH (09:42)
[2021-05-08] MEDS: ATORVASTATIN 40 MG TAB PO SCH (09:42)
[2021-05-08] MEDS: CLOPIDOGREL BISULFATE 75 MG TAB PO SCH (09:42)
[2021-05-08] MEDS: FLUTICASONE/VILANTEROL 200/25MCG 14 PUFFS/INHALER INH SCH (09:43)
[2021-05-08] MEDS: DOCUSATE SODIUM 100 MG CAP PO SCH (09:43)
[2021-05-08] MEDS ORDERED: FERROUS SULFATE 325 MG TAB PO ONE (15:50)
[2021-05-08] MEDS: ENOXAPARIN INJ 40 MG/0.4 ML SYR SQ SCH (16:40)
--- NOTE | 2021-05-08 16:59 | Hospitalist Progress Note ---
Date of Service May 08, 2021 Assessment & Plan (1) Encephalopathy: Plan: 71-year-old male who has significant past medical history of CAD with history of CABG, HTN, HLD, MARTHA noncompliant with CPAP, asthma, BPH, schizophrenia, depression, major neurocognitive disorder who presented to ED via EMS secondary to dizziness. Patient currently in the process of transitioning care to [facility]. Outside records limited. Encephalopathy likely due to polypharmacy, resolved with medication changes. Specifically clonazepam and risepridone was stopped, olanzapine was changed to qHS. Possible early onset dementia per notes, but official psychiatry notes unavailable from OSH. Will need to obtain accurate medication list from [facility] tomorrow. (2) Bigeminy: Plan: PVC ablation in 2018, Benign per cardiology. Metoprolol initially increased to 50 mg twice daily --> reduce back to 25 mg twice daily due to persistent fatigue (3) Leukocytosis: Plan: There was a question of pneumonia on the CT, however, patient has a normal procalcitonin and no respiratory symptoms. He is afebrile and leukocytosis has resolved. Cont to monitor off abx. (4) Acute hyponatremia: Plan: Na+ ~ 130 Possibly 2/2 lasix which has been held. May also be related to SSRI and this may be his baseline. Patient reports drinking 4-5 L of water daily at home on average. Cont with fluid restriction and cont to monitor. This will not keep him in the hospital if still 130-135. May cont workup as outpatient if needed. (5) CAD (coronary artery disease): Plan: s/p CABG in 2018, recent stent placement at OSH one month ago-records not available. Cont ASA, Plavix, statin, beta laverne Currently in the process of transferring care to [facility] cardiology (6) HTN (hypertension): Plan: Amlodipine was on hold, likely due to borderline low BP. BP improved, will resume amlodipine today (7) DVT prophylaxis: Plan: SQ Lovenox Dispo-Per PT/OT, patient can return home with home health. Currently has services through [facility]. Likely discharge home tomorrow. Admission and Anticipated Discharge Date Admission Date: May 04, 2021 Supervising Physician Co-Signing Physician Notes I have seen and examined the patient and have discussed the case with the provider above. I agree with the assessment and plan as stated. My physical exam is consistent with that above. DO Lei Subjective Patient seen and examined. Follow-up for encephalopathy, likely due to polypharm acy. Hyponatremia. Patient reports feeling tired this morning. Had trouble difficulty falling asleep last night. Denies chest pain or shortness of breath. Reports a good appetite, no abdominal pain, nausea. Urinating and moving bowels without difficulty. Review of Systems Review of Systems: ROS per HPI, all other systems reviewed and negative Physical Exam Constitutional: WD/WN, vitals as above Respiratory: normal respiratory effort, lungs clear to auscultation Cardiovascular: Rate/Rhythm: regular rate and regular rhythm Vessels: normal peripheral pulses Extremities: no edema Gastrointestinal (Abdomen): Percussion/Palpation: abdomen soft; abdomen nontender Skin: no rashes, warm and dry Neurologic: no focal motor deficits Psychiatric: A+Ox3, euthymic affect Results & Data Results & Data ([facility]) Vital Signs (Past 12 Hours) Vital Signs Temp Pulse Resp BP Pulse Ox 05/08/21 16:31 36.4 C L 90 05/08/21 16:26 36.7 C 59 L 18 149/80 H 94 05/08/21 08:50 166/79 H 05/08/21 08:30 36.6 C 70 18 175/85 H 98 Laboratory Results Short CBC 05/07/21 Range/Units 22:31 WBC 7.60 (4.8-10.8) K/uL Hgb 12.5 L (14.0-18.0) g/dL Hct 37.6 L (42-52) % Plt Count 203 (130-400) K/uL BMP 05/08/21 04:23 Sodium 130 L Potassium 4.2 Chloride 100 Carbon Dioxide 27 BUN 13 Creatinine 0.96 Glucose 94 Calcium 8.2 L Cardiac Enzymes 05/07/21 05/08/21 Range/Units 22:31 04:23 Troponin I < 0.03 < 0.03 (0-0.04) ng/ml (1) Leukocytosis Leukocytosis type: unspecified Qualified Code(s): D72.829 - Elevated white blood cell count, unspecified
[2021-05-08] MEDS: OLANZAPINE 2.5 MG TAB PO SCH (20:32)
[2021-05-09] MEDS ORDERED: NITROGLYCERIN SL 0.4 MG/TAB TAB SL STA (05:21)
[2021-05-09] MEDS ORDERED: ALBUMIN 25% 100 mL 25 GM/100 ML VIAL IV ONE (05:50)
[2021-05-09 05:56] LABS: Basophils # (auto) 0.06 K/uL (0-0.2); Basophils % (auto) 0.9 %; Eosinophils # (auto) 0.31 K/uL (0-0.5); Eosinophils % (auto) 4.7 %; Hematocrit (blood only) 39.5 % (42-52); Immature Granulocytes # (auto) 0.03 K/uL (0.00-0.02); Immature Granulocytes % (auto) 0.5 %; Lymphocytes # (auto) 1.57 K/uL (1.2-3.4); Lymphocytes % (auto) 23.7 %; Mean Corpuscular Hemoglobin 30.5 pg (25-34); Mean Corpuscular Hgb Conc 32.9 g/dL (32-36); Mean Corpuscular Volume 92.7 fL (80-100); Mean Platelet Volume 9.1 fL (7.4-10.4); Monocytes # (auto) 0.35 K/uL (0.11-0.59); Monocytes % (auto) 5.3 %; Neutrophils % (auto) 64.9 %; Platelet Count 203 K/uL (130-400); RDW Coefficient of Variation 13.8 % (11.5-14.5); RDW Standard Deviation 46.6 fL (36.4-46.3); Red Blood Count 4.26 M/uL (4.7-6.1); White Blood Count 6.62 K/uL (4.8-10.8)
[2021-05-09 06:05] LABS: Partial Thromboplastin Time 27.4 Seconds (21.0-31.0)
[2021-05-09 06:17] LABS: Alanine Aminotransferase 17 U/L (7-52); Albumin Globulin Ratio 1.4 (0.9-2); Albumin Level 3.5 gm/dl (3.4-5.0); Alkaline Phosphatase 48 U/L (34-104); Anion Gap 5 (3-11); Aspartate Aminotransferase 14 U/L (13-39); BUN Creatinine Ratio 12.2 (10-20); Bilirubin,Total 0.3 mg/dl (0.2-1.0); Blood Urea Nitrogen 11 mg/dl (6-23); Calcium 8.6 mg/dl (8.5-10.1); Carbon Dioxide 27 mmol/L (21-32); Chloride 103 mmol/L (98-107); Est GFR (African American) 98.5 ml/min; Globulin 2.5 gm/dl (2.5-4.0); Glucose 90 mg/dl (70-99(Fasting)); Magnesium 2.2 mg/dl (1.7-2.4); Potassium 4.2 mmol/L (3.5-5.1); Sodium 135 mmol/L (136-145)
[2021-05-09] MEDS: ASPIRIN 81 MG ECTAB PO SCH (09:12)
[2021-05-09] MEDS: EZETIMIBE 10 MG TABLET PO SCH (09:13)
[2021-05-09] MEDS: CLOPIDOGREL BISULFATE 75 MG TAB PO SCH (09:13)
[2021-05-09] MEDS: FERROUS SULFATE 325 MG TAB PO SCH (09:13)
[2021-05-09] MEDS: ATORVASTATIN 40 MG TAB PO SCH (09:13)
[2021-05-09] MEDS: ESCITALOPRAM OXALATE 10 MG TAB PO SCH (09:13)
[2021-05-09] MEDS: METOPROLOL TARTRATE 25 MG TAB PO SCH (09:16)
[2021-05-09] MEDS: MULTIVITAMIN TAB PO SCH (09:16)
[2021-05-09] MEDS: PANTOprazole 40 MG TAB PO SCH (09:16)
[2021-05-09] MEDS: FLUTICASONE/VILANTEROL 200/25MCG 14 PUFFS/INHALER INH SCH (09:16)
[2021-05-09] MEDS: DOCUSATE SODIUM 100 MG CAP PO SCH (09:21)
--- NOTE | 2021-05-09 09:34 | Electrocardiogram Report ---
Test Reason : Blood Pressure : / mmHG Vent. Rate : 057 BPM Atrial Rate : 057 BPM P-R Int : 206 ms QRS Dur : 086 ms QT Int : 458 ms P-R-T Axes : 049 022 029 degrees QTc Int : 445 ms Sinus bradycardia Otherwise normal ECG When compared with ECG of 07-MAY-2021 21:45, No significant change was found Confirmed by Colt Scott ([id number]) on 05/09/2021 9:34:13 AM Referred By: REFERRED SELF Confirmed By:Colt Scott
[2021-05-09] MEDS: amLODIPine BESYLATE 5 MG TAB PO SCH (10:28)
[2021-05-09] MEDS: ALBUTEROL HFA 8 GM INHALER INH PRN (10:43)
--- NOTE | 2021-05-09 11:39 | XRay Report ---
XR lumbar spine 2-3V CLINICAL HISTORY: right leg weakness, foot numbness. COMPARISON STUDY: No previous studies for comparison. TECHNIQUE: 3 Views of the lumbar spine FINDINGS: Bones: Minimal old anterior wedge deformities present involving L1. There is no evidence for an acute fracture or malalignment. The heights of the remaining lumbar vertebral bodies are maintained. There are no lytic or blastic lesions present. Disc spaces: There is mild disc space narrowing at L1/2 with endplate osteophyte formation. The remai pola disc space heights are relatively well-maintained. Facet joints: There is hypertrophic facet joint disease seen particularly at the lower 2 disc space l evels. Soft tissues: The paraspinal soft tissues are within normal limits. IMPRESSION: No acute abnormality. Degenerative disc and degenerative facet joint disease. ACT 112: Negative or not required by law. Electronically signed by: Chadwick Lorenzana M.D. 05/09/2021 11:38 AM
--- NOTE | 2021-05-09 12:19 | Cardiology Progress Note ---
Date of Service May 09, 2021 Assessment & Plan (1) Atypical chest pain: (2) CAD (coronary artery disease): (3) HTN (hypertension): (4) HLD (hyperlipidemia): (5) Premature atrial contractions: (6) Premature ventricular contractions: (7) Labile blood pressure: Plan: Atypical chest pain. Status post recent PCI. EKG without acute change. Troponin negative. Echo as above. Continue appropriate medical management Switch metoprolol tartrate to metoprolol succinate Continue dual antiplatelet therapy with aspirin and clopidogrel. Outpatient stress testing Obtain outpatient cardiology records regarding recent cath/intervention. Admission and Anticipated Discharge Date Admission Date: May 04, 2021 Supervising Physician Co-Signing Physician Notes Patient seen and examined with Jordan Atkinson PA-C. Agree with findings and assessment as above. No indication for inpatient stress testing given the aty pical nature of chest pain. Ok to d/c from cardiac standpoint. Subjective [place] Text message received to reevaluate the patient. History is somewhat difficult to discern. Patient experienced a quick sharp resting nonreproducible chest pain early this morning. The discomfort was unlike his prior angina associated with the TN. EKG without acute change. Troponin negative, now times 6. Resting echocardiogram on 05/05/2021 show no discernible regional wall motion abnormalities, EF 45-50% with the presence of frequent ectopy noted, making accurate assessment difficult. Notes receiving sublingual nitroglycerin with resultant resultant marked dizziness/lightheadedness and diaphoresis, marked hypotension (61/34). Physical Exam Physical Exam: General: A&Ox3. NAD. HENT: Normocephalic. Atraumatic. Eyes: PER. Conjunctiva pink, sclera clear. Neck: Soft right carotid bruit. No JVD. No HJR. Heart: Irregular with frequent ectopy. Intermittent soft systolic murmur. No diastolic murmur. No rub. PMI is nondisplaced. Lungs: Clear to auscultation. Abdomen: +BS. Soft. Nontender. No masses or organomegaly. Extremities: No clubbing, cyanosis, or significant edema. Limited neurological examination is without focal deficits. Pulses: radial=2/4, posterior tibial=2/4. Results & Data ([facility]) Vital Signs (Past 12 Hours) Vital Signs Temp Pulse Resp BP BP Pulse Ox 05/09/21 10:43 64 18 97 05/09/21 08:08 36.6 C 69 18 146/78 H 96 05/09/21 06:21 123/70 05/09/21 06:01 51 L 115/64 94 05/09/21 05:50 79/46 L 05/09/21 05:48 61/34 L 05/09/21 05:23 36.8 C 58 L 16 148/73 H 95 Laboratory Results Laboratory Results - last 24 hr 05/09/21 05/09/21 05/09/21 05:48 05:48 05:48 WBC 6.62 RBC 4.26 L Hgb 13.0 L Hct 39.5 L MCV 92.7 MCH 30.5 MCHC 32.9 RDW Std Deviation 46.6 H RDW Coeff of Radha 13.8 Plt Count 203 MPV 9.1 Immature Gran % (Auto) 0.5 Neut % (Auto) 64.9 Lymph % (Auto) 23.7 Preble % (Auto) 5.3 Eos % (Auto) 4.7 Baso % (Auto) 0.9 Neut # (Auto) 4.30 Lymph # (Auto) 1.57 Preble # (Auto) 0.35 Eos # (Auto) 0.31 Baso # (Auto) 0.06 Immature Gran # (Auto) 0.03 H APTT 27.4 PTT Ratio 1.0 Sodium 135 L Potassium 4.2 Chloride 103 Carbon Dioxide 27 Anion Gap 5 BUN 11 Creatinine 0.90 Est Cr Clr Drug Dosing Not Reportable Est GFR ( Amer) 98.5 Est GFR (Non-Af Amer) 85.0 BUN/Creatinine Ratio 12.2 Glucose 90 Lactate Calcium 8.6 Magnesium 2.2 Total Bilirubin 0.3 AST 14 ALT 17 Alkaline Phosphatase 48 Troponin I Total Protein 6.0 Albumin 3.5 Globulin 2.5 Albumin/Globulin Ratio 1.4 05/09/21 05/09/21 05:48 06:12 WBC RBC Hgb Hct MCV MCH MCHC RDW Std Deviation RDW Coeff of Radha Plt Count MPV Immature Gran % (Auto) Neut % (Auto) Lymph % (Auto) Preble % (Auto) Eos % (Auto) Baso % (Auto) Neut # (Auto) Lymph # (Auto) Preble # (Auto) Eos # (Auto) Baso # (Auto) Immature Gran # (Auto) APTT PTT Ratio Sodium Potassium Chloride Carbon Dioxide Anion Gap BUN Creatinine Est Cr Clr Drug Dosing Est GFR ( Amer) Est GFR (Non-Af Amer) BUN/Creatinine Ratio Glucose Lactate 1.3 Calcium Magnesium Total Bilirubin AST ALT Alkaline Phosphatase Troponin I < 0.03 Total Protein Albumin Globulin Albumin/Globulin Ratio
[2021-05-09] MEDS: ENOXAPARIN INJ 40 MG/0.4 ML SYR SQ SCH (16:01)
[2021-05-09] MEDS ORDERED: TAMSULOSIN HCL 0.4 MG CAP PO ONE (16:45)
--- NOTE | 2021-05-09 16:59 | Hospitalist Progress Note ---
Date of Service May 09, 2021 Assessment & Plan (1) Encephalopathy: Plan: 71-year-old male who has significant past medical history of CAD with history of CABG, HTN, HLD, MARTHA noncompliant with CPAP, asthma, BPH, schizophrenia, depression, major neurocognitive disorder who presented to ED via EMS secondary to dizziness. Patient currently in the process of transitioning care to [facility]. Outside records limited. Encephalopathy likely due to polypharmacy, resolved with medication changes. On admission, clonazepam and olanzapine were listed as home medications however per Haily at [facility], patient was not taking those medications. Clonazepam and risepridone were stopped, olanzapine 2.5 mg qHS started. Possible early onset dementia per notes, but official psychiatry notes unavailable from OSH. (2) CAD (coronary artery disease): Plan: s/p CABG in 2018, recent stent placement at OSH one month ago-records not available. Cont ASA, Plavix, statin, beta laverne Currently in the process of transferring care to [facility] cardiology Patient has had chest pain relieved by nitroglycerin 2 evenings in a row. EKG is unchanged, troponin negative. Asked for cardiology to reevaluate the patient today, metoprolol tartrate changed to metoprolol succinate. Planning for outpatient stress test. (3) Leg pain: Plan: Patient reporting medial right thigh pain radiating into the right calf with associated right foot numbness and tingling. This has been present for at least 2 weeks. Lumbar spine x-ray unremarkable Strength strong and equal BLE. Head CT on admission negative for acute findings. Continue to monitor (4) Bigeminy: Plan: PVC ablation in 2018, Benign per cardiology. Metoprolol initially increased to 50 mg twice daily --> reduce back to 25 mg twice daily due to persistent fatigue (5) Leukocytosis: Plan: There was a question of pneumonia on the CT, however, patient has a normal procalcitonin and no respiratory symptoms. He is afebrile and leukocytosis has resolved. Cont to monitor off abx. (6) BPH (benign prostatic hyperplasia): Plan: Patient reporting urinary retention Resume home tamsulosin (confirmed with Haily at [facility]) Bladder scan, straight cath as needed (7) Acute hyponatremia: Plan: Na+ ~ 130 Possibly 2/2 lasix which has been held. May also be related to SSRI and this may be his baseline. Patient reports drinking 4-5 L of water daily at home on average. Cont with fluid restriction and cont to monitor. This will not keep him in the hospital if still 130-135. May cont workup as outpatient if needed. (8) HTN (hypertension): Plan: Amlodipine was on hold, likely due to borderline low BP. BP improved, amlodipine resumed on 05/08 (9) DVT prophylaxis: Plan: SQ Lovenox Dispo-Per PT/OT, patient can return home with home health. Currently has services through office of aging. Likely discharge home tomorrow. See HPI for details regarding conversation with Haily at [facility] today. Admission and Anticipated Discharge Date Admission Date: May 04, 2021 Supervising Physician Co-Signing Physician Notes I have seen and examined the patient and have discussed the case with the provider above. I agree with the assessment and plan as stated. Lower leg pain and radiculopathy present bilaterally today. My physical exam reflects negative straight leg raise test bilaterally. 2+ patellar DTRs, normal sensation, 5/5 strength throughout lower extremities. DJD on xray. Consider MRI if neurologic deficits continue. For now his "pins and needles" feeling will resolve when he lies down on his side. Encouraged repositioning. Larue, DO Subjective Patient seen and examined. Follow-up for encephalopathy, likely due to polypharmacy. Hyponatremia. Patient had an episode of chest pain early this morning and received a sublingual nitroglycerin which resolved his pain however also resulted in lightheadedness, dizziness, profound hypotension. Patient received albumin with improvement in BP. EKG unchanged, troponin negative. Patient reporting medial right thigh pain radiating into the right calf with associated right foot numbness and tingling. This has been present for at least 2 weeks. Discussed discharge plans with patient, states that he cannot return home as he cannot care for himself. Also reports about there being a hole in his ceiling and his apartment not being warm enough. PT evaluated patient yesterday and stated that patient can return home with home health. Case was also discussed with Haily at [facility] -states that she is very familiar with the patient and that he is able to independently perform ADLs. They are currently in the process of finding him a new apartment. There is no issue with the heating. Review of Systems Review of Systems: ROS per HPI, all other systems reviewed and negative Physical Exam Constitutional: WD/WN, vitals as above Respiratory: normal respiratory effort, lungs clear to auscultation Cardiovascular: Rate/Rhythm: regular rate and regular rhythm Vessels: normal peripheral pulses Extremities: no edema Gastrointestinal (Abdomen): Percussion/Palpation: abdomen soft; abdomen nontender Skin: no rashes, warm and dry Neurologic: no focal motor deficits Psychiatric: A+Ox3, euthymic affect Results & Data Results & Data ([facility]) Vital Signs (Past 12 Hours) Vital Signs Temp Pulse Resp BP BP Pulse Ox 05/09/21 15:46 36.8 C 63 18 123/72 95 05/09/21 10:43 64 18 97 05/09/21 08:08 36.6 C 69 18 146/78 H 96 05/09/21 06:21 123/70 05/09/21 06:01 51 L 115/64 94 05/09/21 05:50 79/46 L 05/09/21 05:48 61/34 L 05/09/21 05:23 36.8 C 58 L 16 148/73 H 95 Laboratory Results Short CBC 05/09/21 Range/Units 05:48 WBC 6.62 (4.8-10.8) K/uL Hgb 13.0 L (14.0-18.0) g/dL Hct 39.5 L (42-52) % Plt Count 203 (130-400) K/uL BMP 05/09/21 05:48 Sodium 135 L Potassium 4.2 Chloride 103 Carbon Dioxide 27 BUN 11 Creatinine 0.90 Glucose 90 Calcium 8.6 Cardiac Enzymes 05/09/21 Range/Units 05:48 Troponin I < 0.03 (0-0.04) ng/ml Liver Function 05/09/21 Range/Units 05:48 Total Bilirubin 0.3 (0.2-1.0) mg/dl AST 14 (13-39) U/L ALT 17 (7-52) U/L Alkaline Phosphatase 48 (34-104) U/L Albumin 3.5 (3.4-5.0) gm/dl (1) Leukocytosis Leukocytosis type: unspecified Qualified Code(s): D72.829 - Elevated white blood cell count, unspecified
[2021-05-09] MEDS: OLANZAPINE 2.5 MG TAB PO SCH (21:10)
[2021-05-09] MEDS: MELATONIN 3 MG TAB PO PRN (21:11)
[2021-05-09] MEDS: METOPROLOL SUCC 25MG EXT REL TAB PO SCH (21:12)
[2021-05-10] MEDS: ACETAMINOPHEN 325 MG TAB PO PRN ×2 (04:15→10:24)
[2021-05-10] MEDS: FLUTICASONE/VILANTEROL 200/25MCG 14 PUFFS/INHALER INH SCH (07:48)
[2021-05-10] MEDS: amLODIPine BESYLATE 5 MG TAB PO SCH (07:51)
[2021-05-10] MEDS: METOPROLOL SUCC 25MG EXT REL TAB PO SCH ×2 (07:52→20:20)
[2021-05-10] MEDS: MULTIVITAMIN TAB PO SCH (07:52)
[2021-05-10] MEDS: TAMSULOSIN HCL 0.4 MG CAP PO SCH (07:52)
[2021-05-10] MEDS: ASPIRIN 81 MG ECTAB PO SCH (07:53)
[2021-05-10] MEDS: CLOPIDOGREL BISULFATE 75 MG TAB PO SCH (07:53)
[2021-05-10] MEDS: ATORVASTATIN 40 MG TAB PO SCH (07:53)
[2021-05-10] MEDS: FERROUS SULFATE 325 MG TAB PO SCH (07:53)
[2021-05-10] MEDS: PANTOprazole 40 MG TAB PO SCH (07:53)
[2021-05-10] MEDS: ESCITALOPRAM OXALATE 10 MG TAB PO SCH (07:53)
[2021-05-10] MEDS: EZETIMIBE 10 MG TABLET PO SCH (07:53)
[2021-05-10] MEDS: POLYETHYLENE (MIRALAX) 17 GM PACK PO PRN (07:56)
[2021-05-10] MEDS: DOCUSATE SODIUM 100 MG CAP PO SCH (07:56)
--- NOTE | 2021-05-10 09:26 | Cardiology Progress Note ---
Date of Service May 10, 2021 Assessment & Plan (1) Atypical chest pain: (2) CAD (coronary artery disease): (3) HTN (hypertension): (4) HLD (hyperlipidemia): (5) Premature atrial contractions: (6) Premature ventricular contractions: (7) Labile blood pressure: Plan: Atypical chest pain. Status post recent PCI. EKG without acute change. Troponin negative. Echo as above. Continue appropriate medical management Metoprolol tartrate switched to metoprolol succinate Continue dual antiplatelet therapy with aspirin and clopidogrel. Consider need for outpatient stress testing pending clinical course. Please call with any questions or concerns. Admission and Anticipated Discharge Date Admission Date: May 04, 2021 Supervising Physician Co-Signing Physician Notes Patient seen and examined with Jordan Atkinson PA-C. Agree with findings and assessment as above. Subjective Patient seen and examined. Chart, medications, and telemetry reviewed. Notes tossing and turning last night, having both good and bad dreams. Notes numbness and tingling of the toes and dorsal aspect of the feet. Denies chest pain, palpitations, shortness of breath, orthopnea, PND, peripheral edema, headaches, dizziness, or near syncope. Telemetry: Nonmonitored bed. Physical Exam Physical Exam: General: A&Ox3. NAD. HENT: Normocephalic. Atraumatic. Eyes: PER. Conjunctiva pink, sclera clear. Neck: Soft right carotid bruit. No JVD. No HJR. Heart: Irregularly irregular. Intermittent soft systolic murmur. No diastolic murmur. No rub. PMI is nondisplaced. Lungs: Clear to auscultation. Abdomen: +BS. Soft. Nontender. No masses or organomegaly. Extremities: No clubbing, cyanosis, or significant edema. Limited neurological examination is without focal deficits. Pulses: radial=2/4, posterior tibial=2/4. Results & Data ([facility]) Vital Signs (Past 12 Hours) Vital Signs Temp Pulse Resp BP BP Pulse Ox 05/10/21 08:18 36.6 C 64 16 152/77 H 96 05/09/21 21:46 36.9 C 60 16 109/63 96 Diagnostic Findings No AM labs available for review.
[2021-05-10] MEDS: FUROSEMIDE 20 MG TAB PO SCH (15:52)
[2021-05-10] MEDS: GABAPENTIN 100 MG CAP PO SCH ×2 (15:54→20:20)
[2021-05-10] MEDS: ENOXAPARIN INJ 40 MG/0.4 ML SYR SQ SCH (15:54)
--- NOTE | 2021-05-10 16:44 | Hospitalist Progress Note ---
Date of Service May 10, 2021 Assessment & Plan (1) Encephalopathy: Plan: 71-year-old male who has significant past medical history of CAD with history of CABG, HTN, HLD, MARTHA noncompliant with CPAP, asthma, BPH, schizophrenia, depression, major neurocognitive disorder who presented to ED via EMS secondary to dizziness. Patient currently in the process of transitioning care to [facility]. Outside records limited. Encephalopathy likely due to polypharmacy, resolved with medication changes. On admission, clonazepam and olanzapine were listed as home medications however per Haily at [facility], patient was not taking those medications. Clonazepam and risepridone were stopped, olanzapine 2.5 mg qHS started. Possible early onset dementia per notes, but official psychiatry notes unavailable from OSH. (2) CAD (coronary artery disease): Plan: s/p CABG in 2018, recent stent placement at OSH one month ago-records not available. Cont ASA, Plavix, statin, beta laverne Currently in the process of transferring care to [facility] cardiology Patient has had chest pain relieved by nitroglycerin 2 evenings in a row. EKG is unchanged, troponin negative. Asked for cardiology to reevaluate the patient 05/09, metoprolol tartrate changed to metoprolol succinate. Planning for outpatient stress test. (3) Leg pain: Plan: Patient reporting medial right thigh pain radiating into the right calf with associated right foot numbness and tingling. This has been present for at least 2 weeks. Lumbar spine x-ray unremarkable Strength strong and equal BLE. Head CT on admission negative for acute findings. Start scheduled Tylenol, low-dose gabapentin 100 mg twice daily. Consider lumbar spine MRI or CT if not improving (4) Bigeminy: Plan: PVC ablation in 2018, Benign per cardiology. Metoprolol initially increased to 50 mg twice daily --> reduce back to 25 mg twice daily due to persistent fatigue (5) Leukocytosis: Plan: There was a question of pneumonia on the CT, however, patient has a normal procalcitonin and no respiratory symptoms. He is afebrile and leukocytosis has resolved. Cont to monitor off abx. (6) BPH (benign prostatic hyperplasia): Plan: Patient reporting urinary retention - improved today Resumed home tamsulosin on 05/09 (confirmed with Haily at [facility]) Bladder scan, straight cath as needed (7) Acute hyponatremia: Plan: Na+ ~ 130 Possibly 2/2 lasix which has been held. May also be related to SSRI and this may be his baseline. Patient reports drinking 4-5 L of water daily at home on average. Cont with fluid restriction and cont to monitor. This will not keep him in the hospital if still 130-135. May cont workup as outpatient if needed. Resume home Lasix today, follow BMP in the morning (8) HTN (hypertension): Plan: Amlodipine was on hold, likely due to borderline low BP. BP improved, amlodipine resumed on 05/08 (9) DVT prophylaxis: Plan: SQ Lovenox Dispo-Per PT/OT, patient can return home with home health. Currently has services through office of aging. Please see HPI regarding details of today. Case management to attempt to increase patient's caregivers and have someone be available for when patient arrives home to help get him settled in. Anxiety seems to be driving patient's unwillingness to return home. Call made to Haily with office of aging regarding pillbox, awaiting callback. Repeat PT/OT eval's, possible placement. Admission and Anticipated Discharge Date Admission Date: May 04, 2021 Supervising Physician Co-Signing Physician Notes Patient was seen and evaluated independently. chart was reviewed. Case was discussed with KENYATTA. I agree with assessment and plan as outlined above Subjective Patient seen and examined. Follow-up for encephalopathy, likely due to polypharmacy. Hyponatremia. During initial exam, patient was eager to be discharged home. Shortly after arrangements were made, patient called for his nurse stating that he was dizzy. Upon reevaluation, patient tearful about plan for discharge home. States that he cannot take care of himself and his feet are tingling. Discussed with patient's sister who is unwilling to have the patient stay with her this evening. She is willing to provide transportation and set up medications only. No further episodes of chest pain. Patient denies shortness of breath. No abdominal pain or nausea. Review of Systems Review of Systems: ROS per HPI, all other systems reviewed and negative Physical Exam Constitutional: WD/WN, vitals as above no acute distress Respiratory: normal respiratory effort, lungs clear to auscultation Cardiovascular: Rate/Rhythm: regular rate and regular rhythm Vessels: normal peripheral pulses Extremities: no edema Gastrointestinal (Abdomen): Percussion/Palpation: abdomen soft; abdomen nontender Musculoskeletal: no cyanosis or clubbing, extremities motor strength 5/5 Skin: no rashes, warm and dry Neurologic: no focal motor deficits Psychiatric: Orientation: alert and oriented x 3 Affect: + tearful affect Results & Data Results & Data ([facility]) Vital Signs (Past 12 Hours) Vital Signs Temp Pulse Resp BP BP Pulse Ox 05/10/21 15:19 36.8 C 56 L 16 122/69 97 05/10/21 08:18 36.6 C 64 16 152/77 H 96 (1) Leukocytosis Leukocytosis type: unspecified Qualified Code(s): D72.829 - Elevated white blood cell count, unspecified
[2021-05-10] MEDS: ACETAMINOPHEN 325 MG TAB PO SCH (16:59)
[2021-05-10] MEDS: OLANZAPINE 2.5 MG TAB PO SCH (20:21)
[2021-05-10] MEDS: MELATONIN 3 MG TAB PO PRN (20:26)
[2021-05-11] MEDS: ACETAMINOPHEN 325 MG TAB PO SCH ×2 (02:11→08:13)
[2021-05-11] MEDS: FLUTICASONE/VILANTEROL 200/25MCG 14 PUFFS/INHALER INH SCH (08:12)
[2021-05-11] MEDS: METOPROLOL SUCC 25MG EXT REL TAB PO SCH ×2 (08:14→20:33)
[2021-05-11] MEDS: PANTOprazole 40 MG TAB PO SCH (08:14)
[2021-05-11] MEDS: MULTIVITAMIN TAB PO SCH (08:14)
[2021-05-11] MEDS: amLODIPine BESYLATE 5 MG TAB PO SCH (08:15)
[2021-05-11] MEDS: CLOPIDOGREL BISULFATE 75 MG TAB PO SCH (08:15)
[2021-05-11] MEDS: TAMSULOSIN HCL 0.4 MG CAP PO SCH (08:15)
[2021-05-11] MEDS: EZETIMIBE 10 MG TABLET PO SCH (08:15)
[2021-05-11] MEDS: ASPIRIN 81 MG ECTAB PO SCH (08:15)
[2021-05-11] MEDS: ATORVASTATIN 40 MG TAB PO SCH (08:16)
[2021-05-11] MEDS: GABAPENTIN 100 MG CAP PO SCH ×2 (08:16→20:28)
[2021-05-11] MEDS: ESCITALOPRAM OXALATE 10 MG TAB PO SCH (08:16)
[2021-05-11] MEDS: FERROUS SULFATE 325 MG TAB PO SCH (08:16)
[2021-05-11] MEDS: FUROSEMIDE 20 MG TAB PO SCH (08:16)
[2021-05-11] MEDS: POLYETHYLENE (MIRALAX) 17 GM PACK PO PRN (08:20)
[2021-05-11] MEDS: DOCUSATE SODIUM 100 MG CAP PO SCH (08:20)
--- NOTE | 2021-05-11 12:19 | Hospitalist Progress Note ---
Date of Service May 11, 2021 Assessment & Plan (1) Encephalopathy: Plan: This is a 71-year-old male who has significant past medical history of CAD with history of CABG, HTN, HLD, MARTHA noncompliant with CPAP, asthma, BPH, schizophrenia, depression, major neurocognitive disorder who presented to ED via EMS secondary to dizziness. Patient currently in the process of transitioning care to [facility]. Outside records limited. Encephalopathy likely due to polypharmacy -> resolved On admission, clonazepam and olanzapine were listed as home medications however per Haily at [facility], patient was not taking those medications Clonazepam and risperidone were stopped, olanzapine 2.5 mg qHS started Possible early onset dementia per notes, but official psychiatry notes unavailable from OSH (2) CAD (coronary artery disease): Plan: S/p CABG in 2018, recent stent placement at OSH one month ago-records not available Cont ASA, Plavix, statin, beta laverne Currently in the process of transferring care to [facility] cardiology Patient has had chest pain relieved by nitroglycerin 2 evenings in a row. EKG is unchanged, troponin negative. Asked for cardiology to reevaluate the patient 05/09, metoprolol tartrate changed to metoprolol succinate. Planning for outpatient stress test (3) Leg pain: Plan: Reporting medial right thigh pain radiating into the right calf with associated right foot numbness and tingling. This has been present for at least 2 weeks Lumbar spine x-ray unremarkable Strength strong and equal BLE. Head CT on admission negative for acute findings Start scheduled Tylenol, low-dose gabapentin 100 mg twice daily, added PRN tramadol Ambulatory dysfunction, PT and OT now recommending rehab Consider lumbar spine MRI or CT if not improving (4) Bigeminy: Plan: PVC ablation in 2018, Benign per cardiology. Metoprolol initially increased to 50 mg twice daily --> reduce back to 25 mg twice daily due to persistent fatigue (5) Leukocytosis: Plan: There was a question of pneumonia on the CT, however, patient has a normal procalcitonin and no respiratory symptoms. He is afebrile and leukocytosis has resolved. Cont to monitor off abx. (6) BPH (benign prostatic hyperplasia): Plan: Patient reporting urinary retention - improved today Resumed home tamsulosin on 05/09 (confirmed with Haily at [facility]) Bladder scan, straight cath as needed (7) Acute hyponatremia: Plan: Na+ ~ 130 Possibly 2/2 lasix which has been held. May also be related to SSRI and this may be his baseline. Patient reports drinking 4-5 L of water daily at home on average. Cont with fluid restriction and cont to monitor Resume home Lasix today, follow BMP in the morning (8) HTN (hypertension): Plan: Amlodipine was on hold, likely due to borderline low BP. BP improved, amlodipine resumed on 05/08 (9) DVT prophylaxis: Plan: SQ Lovenox Dispo- patient with persistent RLE pain, does not feel safe to return home. P T/OT now recommending rehab placement. Appreciate CM involvement. Patient seen in collaboration with Dr. Banks. Please see addendum. Admission and Anticipated Discharge Date Admission Date: May 04, 2021 Supervising Physician Co-Signing Physician Notes Patient was seen and evaluated independently. Chart was reviewed. Case was discussed with KENYATTA. Agree with assessment and plan as outlined above Subjective Patient seen and examined in follow-up for encephalopathy, likely due to polypharmacy. RLE leg pain and paresthesias, ambulatory dysfunction. Does not feel safe to go home with HH. Increased pain and paresthesias of RLE. Working with PT and OT who are recommending SNF placement. No F/C, CP, SOB, N/V, abdominal pain, dysuria, diarrhea or constipation. Review of Systems Review of Systems: At least ten systems reviewed and negative except as noted in the HPI. Physical Exam Physical Exam: Gen: WD/WN, NAD, lying in bed, A&Ox3, anxious HEENT: Normocephalic, atraumatic, conjunctivae moist, sclerae anicteric, mucous membranes moist Lung: Clear to Auscultation bilaterally, no wheezes/rales/rhonchi Heart: Regular rate, regular rhythm, no murmurs, rubs, or gallops Abdomen: Soft, NT, ND +BS x 4 Extremities: no edema Skin: Warm, no rash Results & Data Results & Data ([facility]) Vital Signs (Past 12 Hours) Vital Signs Temp Pulse Resp BP Pulse Ox 05/11/21 05:45 36.8 C 57 L 18 133/72 97 (1) Leukocytosis Leukocytosis type: unspecified Qualified Code(s): D72.829 - Elevated white blood cell count, unspecified
[2021-05-11] MEDS: traMADol HCL 50 MG TABLET PO PRN ×2 (12:45→18:02)
[2021-05-11 13:46] LABS: Anion Gap 6 (3-11); BUN Creatinine Ratio 11.8 (10-20); Blood Urea Nitrogen 11 mg/dl (6-23); Calcium 8.5 mg/dl (8.5-10.1); Carbon Dioxide 26 mmol/L (21-32); Chloride 102 mmol/L (98-107); Est GFR (African American) 94.7 ml/min; Est GFR (Non-African American) 81.7 ml/min; Glucose 132 mg/dl (70-99(Fasting)); Sodium 134 mmol/L (136-145)
[2021-05-11] MEDS: ACETAMINOPHEN 500 MG TAB PO SCH ×2 (14:29→22:17)
[2021-05-11] MEDS: ENOXAPARIN INJ 40 MG/0.4 ML SYR SQ SCH (17:59)
[2021-05-11] MEDS: OLANZAPINE 2.5 MG TAB PO SCH (20:28)
[2021-05-11] MEDS: MELATONIN 3 MG TAB PO PRN (20:33)
[2021-05-12] MEDS: traMADol HCL 50 MG TABLET PO PRN ×2 (01:48→20:31)
[2021-05-12] MEDS: ACETAMINOPHEN 500 MG TAB PO SCH ×3 (05:14→21:58)
[2021-05-12 07:36] LABS: Hematocrit (blood only) 39.9 % (42-52); Hemoglobin 13.2 g/dL (14.0-18.0); Mean Corpuscular Hemoglobin 30.5 pg (25-34); Mean Corpuscular Hgb Conc 33.1 g/dL (32-36); Mean Corpuscular Volume 92.1 fL (80-100); Mean Platelet Volume 9.1 fL (7.4-10.4); Platelet Count 169 K/uL (130-400); RDW Coefficient of Variation 13.8 % (11.5-14.5); RDW Standard Deviation 46.4 fL (36.4-46.3); Red Blood Count 4.33 M/uL (4.7-6.1); White Blood Count 7.45 K/uL (4.8-10.8)
[2021-05-12 08:02] LABS: Anion Gap 4 (3-11); Blood Urea Nitrogen 13 mg/dl (6-23); Calcium 8.9 mg/dl (8.5-10.1); Carbon Dioxide 28 mmol/L (21-32); Chloride 102 mmol/L (98-107); Est GFR (African American) 86.8 ml/min; Est GFR (Non-African American) 74.9 ml/min; Glucose 90 mg/dl (70-99(Fasting)); Potassium 4.2 mmol/L (3.5-5.1); Sodium 134 mmol/L (136-145)
[2021-05-12] MEDS: CLOPIDOGREL BISULFATE 75 MG TAB PO SCH (09:16)
[2021-05-12] MEDS: amLODIPine BESYLATE 5 MG TAB PO SCH (09:16)
[2021-05-12] MEDS: TAMSULOSIN HCL 0.4 MG CAP PO SCH (09:16)
[2021-05-12] MEDS: ATORVASTATIN 40 MG TAB PO SCH (09:16)
[2021-05-12] MEDS: GABAPENTIN 100 MG CAP PO SCH ×2 (09:16→20:32)
[2021-05-12] MEDS: METOPROLOL SUCC 25MG EXT REL TAB PO SCH ×2 (09:16→20:23)
[2021-05-12] MEDS: PANTOprazole 40 MG TAB PO SCH (09:17)
[2021-05-12] MEDS: FUROSEMIDE 20 MG TAB PO SCH (09:17)
[2021-05-12] MEDS: FERROUS SULFATE 325 MG TAB PO SCH (09:17)
[2021-05-12] MEDS: EZETIMIBE 10 MG TABLET PO SCH (09:17)
[2021-05-12] MEDS: MULTIVITAMIN TAB PO SCH (09:17)
[2021-05-12] MEDS: ASPIRIN 81 MG ECTAB PO SCH (09:17)
[2021-05-12] MEDS: ESCITALOPRAM OXALATE 10 MG TAB PO SCH (09:17)
[2021-05-12] MEDS: DOCUSATE SODIUM 100 MG CAP PO SCH (09:19)
[2021-05-12] MEDS: FLUTICASONE/VILANTEROL 200/25MCG 14 PUFFS/INHALER INH SCH (09:29)
--- NOTE | 2021-05-12 15:49 | XRay Report ---
BONY ORBITS 3 VIEWS CLINICAL HISTORY: MRI clearance. FINDINGS: 3 views of the bony orbits are obtained. No prior studies are available for comparison at t he time of dictation. There is no radiodense/metallic foreign body seen in the region of the bony orb its. The bony orbits are intact as imaged. The visualized paranasal sinuses and the mastoid air cells appear clear. The imaged calvarium appears intact. IMPRESSION: There is no radiodense/metallic foreign body seen in the region of the bony orbits. ACT 112: Negative or not required by law. Electronically signed by: Fernandez Ritter M.D. 05/12/2021 3:47 PM
--- NOTE | 2021-05-12 16:52 | Magnetic Resonance Report ---
MR lumbar spine wo con CLINICAL HISTORY: Low back pain and bilateral leg pain, right greater than left. COMPARISON: Standard radiographs from 05/09/2021 TECHNIQUE: Multiplanar multisequence images of the Lumbar Spine were performed without contrast. FINDINGS: There is no evidence for vertebral body fracture. The heights of the vertebral bodies are maintained. The vertebral bodies are in anatomic alignment. Homogeneous marrow signal is seen without evidence f or marrow edema or marrow replacement. T12-L1: The disc space height is maintained. There are no focal disc protrusions or extrusions ident ified. The thecal sac and epidural fat are maintained. The neural foramen are patent bilaterally. Th ere is no evidence for nerve root encroachment. The facet joints are within normal limits. L1-2: There is moderate disc space narrowing and disc desiccation with diffuse bulging of the annulu s present. There are no focal disc protrusions or extrusions identified. There is flattening of the massiel sac anteriorly. The neural foramen are patent bilaterally. There is no evidence for nerve root en croachment. The facet joints are within normal limits. L2-3: There is mild disc space narrowing and disc desiccation with diffuse bulging of the annulus pr esent. There are no focal disc protrusions or extrusions identified. There is flattening of thecal sac anteriorly. The neural foramen are patent bilaterally. There is no evidence for nerve root encroa chment. The facet joints are within normal limits. L3-4: The disc space height is maintained. There are no focal disc protrusions or extrusions identi fied. There is diffuse bulging of the annulus with flattening of thecal sac anteriorly. Mild to mode rate hypertrophic facet joint disease with thickening of ligamentum flavum is also present bilaterall y. The combination of these findings produce mild central canal stenosis and bilateral foraminal sten osis. No focal nerve root impingement is identified. L4-5: The disc space height is maintained. There is a approximately 5 mm broad-based 2 right latera l disc protrusion/herniation present. This encroaches upon the thecal sac anteriorly and asymmetrical ly upon the right neural foramen compared to the left. Additionally, there is moderate hypertrophic facet joint disease with thickening of ligamentum flavum bilaterally. The combination of these findin gs produce moderate to marked central canal stenosis and right foraminal stenosis. No focal nerve yamileth t impingement is identified within the neural foramen. L5-S1: There is disc desiccation with diffuse bulging annulus present. There are no focal disc prot rusions or extrusions identified. Due to the increase amount of epidural fat anterior to the thecal sac at this level, there is no encroachment upon the thecal sac anteriorly. However, there is moderat e hypertrophic facet joint disease with thickening of ligamentum flavum present bilaterally. The comb ination of these findings produce mild central canal stenosis and moderate bilateral foraminal stenos is. No focal nerve root impingement is identified. IMPRESSION: 1. Degenerative disc and degenerative facet joint disease throughout the lumbar spine. The findings a re most marked at L4-5 with a broad-based right lateral disc protrusion/herniation present. There is associated moderate to marked central canal stenosis and right foraminal stenosis as delineated above . 2. Segmental central canal and foraminal stenosis also present at additional disc space levels as del ineated above. ACT 112: Negative or not required by law. Electronically signed by: Chadwick Lorenzana M.D. 05/12/2021 4:51 PM
--- NOTE | 2021-05-12 16:58 | Hospitalist Progress Note ---
Date of Service May 12, 2021 Assessment & Plan (1) Encephalopathy: Plan: This is a 71-year-old male who has significant past medical history of CAD with history of CABG, HTN, HLD, MARTHA noncompliant with CPAP, asthma, BPH, schizophrenia, depression, major neurocognitive disorder who presented to ED via EMS secondary to dizziness. Patient currently in the process of transitioning care to [facility]. Outside records limited. Encephalopathy likely due to polypharmacy -> resolved On admission, clonazepam and olanzapine were listed as home medications however per Haily at [facility], patient was not taking those medications Clonazepam and risperidone were stopped, olanzapine 2.5 mg qHS started Possible early onset dementia per notes, but official psychiatry notes unavailable from OSH (2) CAD (coronary artery disease): Plan: S/p CABG in 2018, recent stent placement at OSH one month ago-records not available Cont ASA, Plavix, statin, beta laverne Currently in the process of transferring care to [facility] cardiology Patient has had chest pain relieved by nitroglycerin 2 evenings in a row. EKG is unchanged, troponin negative. Asked for cardiology to reevaluate the patient 05/09, metoprolol tartrate changed to metoprolol succinate. Planning for outpatient stress test (3) Leg pain: Plan: Reporting medial right thigh pain radiating into the right calf with associated right foot numbness and tingling. This has been present for at least 2 weeks Lumbar spine x-ray unremarkable Strength strong and equal BLE. Head CT on admission negative for acute findings Start scheduled Tylenol, low-dose gabapentin 100 mg twice daily, added PRN tramadol Ambulatory dysfunction, PT and OT now recommending rehab Consulted ortho spine for further evaluation, imagine. Appreciate recommendations (4) Bigeminy: Plan: PVC ablation in 2018, Benign per cardiology. Metoprolol initially increased to 50 mg twice daily --> reduce back to 25 mg twice daily due to persistent fatigue (5) Leukocytosis: Plan: There was a question of pneumonia on the CT, however, patient has a normal procalcitonin and no respiratory symptoms. He is afebrile and leukocytosis has resolved. Cont to monitor off abx. (6) BPH (benign prostatic hyperplasia): Plan: Patient reporting urinary retention - improved today Resumed home tamsulosin on 05/09 (confirmed with Haily at [facility]) Bladder scan, straight cath as needed (7) Acute hyponatremia: Plan: Na+ ~ 130 Possibly 2/2 lasix which has been held. May also be related to SSRI and this may be his baseline. Patient reports drinking 4-5 L of water daily at home on average. Cont with fluid restriction and cont to monitor Resume home Lasix today, follow BMP in the morning (8) HTN (hypertension): Plan: Amlodipine was on hold, likely due to borderline low BP. BP improved, amlodipine resumed on 05/08 (9) DVT prophylaxis: Plan: SQ Lovenox Dispo- awaiting rehab placement. Appreciate CM involvement. Patient seen in collaboration with Dr. Banks. Please see addendum. Admission and Anticipated Discharge Date Admission Date: May 04, 2021 Supervising Physician Co-Signing Physician Notes Patient was seen and evaluated independently. Chart was reviewed. Case was discussed with KENYATTA. Agree with assessment and plan as outlined above Subjective Patient seen and examined in follow-up for encephalopathy, likely due to polypharmacy. RLE leg pain and paresthesias, ambulatory dysfunction. Denies RLE pain right now while resting in bed. Endorsing some lightheadedness but no vertigo, denies nausea. Planning to transition to bedside chair soon. Working with PT and OT who are recommending SNF placement. No F/C, CP, SOB, N/V, abdominal pain, dysuria, diarrhea or constipation. Review of Systems Review of Systems: At least ten systems reviewed and negative except as noted in the HPI. Physical Exam Physical Exam: Gen: WD/WN, NAD, lying in bed, A&Ox3, anxious HEENT: Normocephalic, atraumatic, conjunctivae moist, sclerae anicteric, mucous membranes moist Lung: Clear to Auscultation bilaterally, no wheezes/rales/rhonchi Heart: Regular rate, regular rhythm, no murmurs, rubs, or gallops Abdomen: Soft, NT, ND +BS x 4 Extremities: no edema, strength intact Skin: Warm, no rash Results & Data Results & Data ([facility]) Vital Signs (Past 12 Hours) Vital Signs Temp Pulse Resp BP Pulse Ox 05/12/21 11:45 36.7 C 54 L 20 109/69 94 05/12/21 08:00 36.5 C 65 18 130/73 94 Laboratory Results Short CBC 05/12/21 Range/Units 07:22 WBC 7.45 (4.8-10.8) K/uL Hgb 13.2 L (14.0-18.0) g/dL Hct 39.9 L (42-52) % Plt Count 169 (130-400) K/uL BMP 05/12/21 07:22 Sodium 134 L Potassium 4.2 Chloride 102 Carbon Dioxide 28 BUN 13 Creatinine 1.00 Glucose 90 Calcium 8.9 Diagnostic Findings Chest X-Ray 05/04/21 11:31 XR chest 1V portable CLINICAL HISTORY: Atypical chest pain TECHNIQUE: Single frontal radiograph of the chest was obtained. Comparison: None available at the time of this dictation. FINDINGS: Median sternotomy wires are seen. Cardiomegaly is noted. The lungs are clear. Small bilateral pleural effusions are seen. IMPRESSION: Cardiomegaly with small bilateral pleural effusions. ACT 112: Negative or not required by law. Electronically signed by: Pete Mahoney M.D. 05/04/2021 12:[address] 05/04/21 11:31 CT SCAN OF THE BRAIN WITHOUT IV CONTRAST CLINICAL HISTORY: Dizziness. COMPARISON STUDY: No priors. TECHNIQUE: Unenhanced axial CT scan of the brain is performed from the vertex to the skull base. A dose lowering technique was utilized adhering to the principles of ALARA. CT DOSE: 690.05 mGycm FINDINGS: Brain parenchyma: There are age-related involutional changes noting mild subcortical and periventricular microangiopathic change. There is no hemorrhage, mass effect, or evidence of acute territorial ischemia by CT criteria. [place]- white matter differentiation is preserved. No extra-axial fluid collection is seen. A small chronic lacunar infarct is noted in the right cerebellar hemisphere. Ventricles, sulci, cisterns: Prominent secondary to involutional change. Intracranial vasculature: There is atherosclerotic calcification of the cavernous carotid and vertebral arteries. Calvarium: Unremarkable. Sinuses and mastoids: The visualized paranasal sinuses are clear. The mastoid air cells are well pneumatized. Orbits: The bony orbits are grossly intact. IMPRESSION: There is no hemorrhage, mass effect, or evidence of acute territorial ischemia by CT criteria. ACT 112: Negative or not required by law. Electronically signed by: Fernandez Ritter M.D. 05/04/2021 1:58 PM Carotid Doppler Study 05/04/21 17:09 ULTRASOUND OF THE CAROTID ARTERIES CLINICAL HISTORY: Dizziness. COMPARISON STUDY: No priors. TECHNIQUE: Real-time, grayscale, and color Doppler sonography of the carotid arteries is performed. Images are reviewed in the transverse and longitudinal planes. FINDINGS: Blood pressures were not assessed due to reported limb restrictions. The carotid arteries are patent bilaterally and demonstrate antegrade flow. There is mild to moderate atherosclerotic plaque seen in the carotid bulbs bilaterally. Normal doppler arterial waveforms are seen throughout. Cardiac pulsations appear irregular. Velocity measurements are listed below. Common carotid peak systolic velocity (cm/sec): RIGHT: 97 LEFT: 107 ICA proximal peak systolic velocity (cm/sec): RIGHT: 70 LEFT: 62 ICA mid peak systolic velocity (cm/sec): RIGHT: 59 LEFT: 57 ICA distal peak systolic velocity (cm/sec): RIGHT: 55 LEFT: 57 ICA/CC peak systolic ratio: RIGHT: 0.7 LEFT: 0.6 Antegrade flow was shown in the vertebral arteries. The external carotid arteries are patent. IMPRESSION: 1. There is no sonographic evidence of hemodynamically significant stenosis in the right or left carotid arterial system. 2. Antegrade flow is shown in the vertebral arteries. 3. The cardiac pulsations appear irregular. Correlate for evidence of arrhythmia. ACT 112: Negative or not required by law. Electronically signed by: Fernandez Ritter M.D. 05/04/2021 6:52 PM Chest CTA 05/04/21 18:16 CT angio chest PE protocol CT DOSE: 610.18 mGy.cm HISTORY: 71 years-old Male with PE. Acute shortness of breath with cough TECHNIQUE: Multiple CTA images of the chest were obtained after the intravenous administration of 119 ml Optiray. Coronal and sagittal MIPS were obtained from the axial data set and were submitted for review. All measurements were obtained according to NASCET criteria. A dose lowering technique was utilized adhering to the principles of ALARA. COMPARISON: Chest radiograph 05/04/2021 FINDINGS: CTA: The heart is mildly enlarged. No pericardial effusion. Extensive [place] coronary artery calcifications. Prior median sternotomy with CABG. Atherosclerosis of the thoracic aorta without aneurysm. Patency of the imaged great vessels. There is satisfactory opacification of the pulmonary arterial tree. No filling defects identified to suggest thromboembolic disease. CT CHEST: Unremarkable thyroid. No adenopathy. Small layering pleural effusions. Mild left greater than right pleural thickening. No pneumothorax or overt pulmonary edema. Subsegmental bibasilar predominant atelectasis/scarring. 6 mm solid nodule of the basal left lower lobe, image 68. Central airways are patent. There is no acute process of the imaged upper abdomen. Cholecystectomy. Subcentimeter calcification of the right hepatic lobe. Unremarkable soft tissues. Healed chronic left-sided rib fractures. Degenerative changes of the shoulders and spine. IMPRESSION: 1. No pulmonary emboli. 2. Cardiomegaly with prior median sternotomy and CABG. 3. Small pleural effusions with subsegmental bibasilar atelectasis. 4. 6 mm solid nodule of the left lower lobe. Please refer to below summary of Fleischner criteria recommendations for follow- up of incidental CT nodules (Luisito Freedman, Guidelines for management of small pulmonary nodules detected on CT scans: A statement from the Fleischner Society, Radiology 237: [phone].) SOLID NODULES Solitary nodule size: 6-8 mm * Low risk patients: follow-up at 6-12 months, then consider further follow-up at 18-24 months * high risk patients: initial follow-up CT at 6-12 months and then at 18-24 months if no change Note: newly detected indeterminate nodule in persons 35 years of age or older. * Low risk patients: minimal or absent history of smoking and/or other known risk factors * high risk patients: history of smoking or of other known risk factors (e.g. first degree relative with lung cancer, or exposure to asbestos, radon, uranium) * if a nodule up to 8 mm is partly solid or is ground glass further follow-up is required after 24 months to exclude possible slow growing adenocarcinoma (SEAN) ACT 112: Negative or not required by law. The above report was generated using voice recognition software. It may contain grammatical, syntax or spelling errors. Electronically signed by: Clay Gillis M.D. 05/05/2021 7:[address] 05/05/21 12:58 CT head/brain wo con CLINICAL HISTORY: 71 years-old Male with altered, somnolent. Acutely altered mental status TECHNIQUE: Multiple axial CT images of the head were obtained without contrast. A dose lowering technique was utilized adhering to the principles of ALARA. CT DOSE: 773.57 mGy.cm COMPARISON: Head CT 05/04/2021 FINDINGS: No acute intracranial hemorrhage, midline shift, intracranial mass, hydrocephalus, territorial ischemia or abnormal extra-axial collection. Age- related involutional changes. Calcifications of the falx cerebri. Mild white matter hypodensities suggestive of chronic microvascular ischemic disease. The calvarium is intact. The paranasal sinuses, mastoid air cells, and middle ear cavities are clear. IMPRESSION: No acute intracranial abnormality. ACT 112: Negative or not required by law. The above report was generated using voice recognition software. It may contain grammatical, syntax or spelling errors. Electronically signed by: Clay Gillis M.D. 05/05/2021 2:54 PM Lumbar Spine X-Ray 05/09/21 10:26 XR lumbar spine 2-3V CLINICAL HISTORY: right leg weakness, foot numbness. COMPARISON STUDY: No previous studies for comparison. TECHNIQUE: 3 Views of the lumbar spine FINDINGS: Bones: Minimal old anterior wedge deformities present involving L1. There is no evidence for an acute fracture or malalignment. The heights of the remaining lumbar vertebral bodies are maintained. There are no lytic or blastic lesions present. Disc spaces: There is mild disc space narrowing at L1/2 with endplate osteophyte formation. The remaining disc space heights are relatively well-maintained. Facet joints: There is hypertrophic facet joint disease seen particularly at the lower 2 disc space levels. Soft tissues: The paraspinal soft tissues are within normal limits. IMPRESSION: No acute abnormality. Degenerative disc and degenerative facet joint disease. ACT 112: Negative or not required by law. Electronically signed by: Chadwick Lorenzana M.D. 05/09/2021 11:38 AM Lumbar Spine MRI 05/12/21 09:59 MR lumbar spine wo con CLINICAL HISTORY: Low back pain and bilateral leg pain, right greater than left. COMPARISON: Standard radiographs from 05/09/2021 TECHNIQUE: Multiplanar multisequence images of the Lumbar Spine were performed without contrast. FINDINGS: There is no evidence for vertebral body fracture. The heights of the vertebral bodies are maintained. The vertebral bodies are in anatomic alignment. Homogeneous marrow signal is seen without evidence for marrow edema or marrow replacement. T12-L1: The disc space height is maintained. There are no focal disc protrusions or extrusions identified. The thecal sac and epidural fat are maintained. The neural foramen are patent bilaterally. There is no evidence for nerve root encroachment. The facet joints are within normal limits. L1-2: There is moderate disc space narrowing and disc desiccation with diffuse bulging of the annulus present. There are no focal disc protrusions or extrusions identified. There is flattening of thecal sac anteriorly. The neural foramen are patent bilaterally. There is no evidence for nerve root encroachment. The facet joints are within normal limits. L2-3: There is mild disc space narrowing and disc desiccation with diffuse bulging of the annulus present. There are no focal disc protrusions or extrusions identified. There is flattening of thecal sac anteriorly. The neural foramen are patent bilaterally. There is no evidence for nerve root encroachment. The facet joints are within normal limits. L3-4: The disc space height is maintained. There are no focal disc protrusions or extrusions identified. There is diffuse bulging of the annulus with flattening of thecal sac anteriorly. Mild to moderate hypertrophic facet joint disease with thickening of ligamentum flavum is also present bilaterally. The combination of these findings produce mild central canal stenosis and bilateral foraminal stenosis. No focal nerve root impingement is identified. L4-5: The disc space height is maintained. There is a approximately 5 mm broad-based 2 right lateral disc protrusion/herniation present. This encroaches upon the thecal sac anteriorly and asymmetrically upon the right neural foramen compared to the left. Additionally, there is moderate hypertrophic facet joint disease with thickening of ligamentum flavum bilaterally. The combination of these findings produce moderate to marked central canal stenosis and right foraminal stenosis. No focal nerve root impingement is identified within the neural foramen. L5-S1: There is disc desiccation with diffuse bulging annulus present. There are no focal disc protrusions or extrusions identified. Due to the increase amount of epidural fat anterior to the thecal sac at this level, there is no encroachment upon the thecal sac anteriorly. However, there is moderate hypertrophic facet joint disease with thickening of ligamentum flavum present bilaterally. The combination of these findings produce mild central canal stenosis and moderate bilateral foraminal stenosis. No focal nerve root impingement is identified. IMPRESSION: 1. Degenerative disc and degenerative facet joint disease throughout the lumbar spine. The findings are most marked at L4-5 with a broad-based right lateral disc protrusion/herniation present. There is associated moderate to marked central canal stenosis and right foraminal stenosis as delineated above. 2. Segmental central canal and foraminal stenosis also present at additional disc space levels as delineated above. ACT 112: Negative or not required by law. Electronically signed by: Chadwick Lorenzana M.D. 05/12/2021 4:51 PM Orbit X-Ray 05/12/21 15:01 BONY ORBITS 3 VIEWS CLINICAL HISTORY: MRI clearance. FINDINGS: 3 views of the bony orbits are obtained. No prior studies are available for comparison at the time of dictation. There is no radiodense/metallic foreign body seen in the region of the bony orbits. The bony orbits are intact as imaged. The visualized paranasal sinuses and the mastoid air cells appear clear. The imaged calvarium appears intact. IMPRESSION: There is no radiodense/metallic foreign body seen in the region of the bony orbits. ACT 112: Negative or not required by law. Electronically signed by: Fernandez Ritter M.D. 05/12/2021 3:47 PM (1) Leukocytosis Leukocytosis type: unspecified Qualified Code(s): D72.829 - Elevated white blood cell count, unspecified
[2021-05-12] MEDS: ENOXAPARIN INJ 40 MG/0.4 ML SYR SQ SCH (17:46)
[2021-05-12] MEDS: OLANZAPINE 2.5 MG TAB PO SCH (20:32)
[2021-05-12] MEDS: MELATONIN 3 MG TAB PO PRN (20:35)
[2021-05-13] MEDS: ACETAMINOPHEN 500 MG TAB PO SCH ×3 (06:02→20:27)
[2021-05-13 07:10] LABS: Hematocrit (blood only) 40.2 % (42-52); Hemoglobin 13.5 g/dL (14.0-18.0); Mean Corpuscular Hemoglobin 30.9 pg (25-34); Mean Corpuscular Hgb Conc 33.6 g/dL (32-36); Mean Platelet Volume 8.9 fL (7.4-10.4); Platelet Count 177 K/uL (130-400); RDW Coefficient of Variation 13.8 % (11.5-14.5); RDW Standard Deviation 46.3 fL (36.4-46.3); Red Blood Count 4.37 M/uL (4.7-6.1)
[2021-05-13 07:35] LABS: BUN Creatinine Ratio 11.2 (10-20); Calcium 8.9 mg/dl (8.5-10.1); Creatinine Clr Calc Pharmacy 73.1 ml/min; Est GFR (African American) 88.9 ml/min; Est GFR (Non-African American) 76.7 ml/min; Potassium 4.2 mmol/L (3.5-5.1)
--- NOTE | 2021-05-13 09:12 | Orthopedic Consultation ---
Date of Consultation May 13, 2021 Assessment & Plan (1) Neurogenic claudication due to lumbar spinal stenosis: MRI lumbar spine performed yesterday demonstrates severe lumbar spinal stenosis L4-L5 with facet hypertrophy modest stenosis foraminal disease L5-S1. Undoubtedly this is contributing to his symptom complex. I have reviewed results of his MRI with the patient and explanation for his leg pain. He is obviously very concerned regarding any surgical intervention in light of his health history and age. A consultation with interventional pain management is worth a trial. However if he does not respond to injections he may ultimately require lumbar decompression with possible fusion. History of Present Illness Reason for Consultation: Back and bilateral leg pain Attending Physician: Terra Banks MD History of Present Illness This is a 71-year-old male that states he has had history of several months of back and right greater than left leg pain. Describes tingling in his toes. He states he has difficulty with any prolonged standing and walking secondary to pain and leg weakness. Allergies Allergy/AdvReac Type Severity Reaction Status Date / Time No Known Allergies Allergy Verified 05/04/21 14:10 Home Medications Medication Instructions Recorded Confirmed Type albuterol sulfate 90 mcg/actuation 2 puff INHALATION 6XD PRN 05/04/21 05/04/21 History aerosol inhaler (Proventil HFA) docusate sodium 100 mg capsule 100 mg PO DAILY 05/04/21 05/04/21 History (Colace) fluticasone 250 mcg-salmeterol 50 1 inh INHALATION BID 05/04/21 05/04/21 History mcg/dose blistr powdr for inhalation (Advair Diskus) melatonin 5 mg tablet 5 mg PO HS PRN 05/04/21 05/04/21 History multivitamin 1 tab PO DAILY 05/04/21 05/04/21 History nitroglycerin 0.4 mg sublingual 0.4 mg SUBLINGUAL UD PRN 05/09/21 05/09/21 History tablet amlodipine 2.5 mg tablet 2.5 mg PO DAILY #7 tab 05/10/21 Rx aspirin 81 mg tablet,delayed 81 mg PO DAILY #7 tab 05/10/21 Rx release atorvastatin 40 mg tablet 40 mg PO DAILY #7 tab 05/10/21 Rx clopidogrel 75 mg tablet 75 mg PO DAILY #7 tab 05/10/21 Rx escitalopram oxalate 10 mg tablet 10 mg PO QAM #7 tab 05/10/21 Rx ezetimibe 10 mg tablet (Zetia) 10 mg PO DAILY #7 tab 05/10/21 Rx ferrous sulfate 324 mg (65 mg 324 mg PO DAILY #7 tab 05/10/21 Rx iron) tablet,delayed release furosemide 20 mg tablet 20 mg PO DAILY #7 tab 05/10/21 Rx metoprolol succinate 25 mg 25 mg PO BID #14 tab 05/10/21 Rx tablet,extended release 24 hr olanzapine 2.5 mg tablet 2.5 mg PO HS #7 tab 05/10/21 Rx pantoprazole 20 mg tablet,delayed 20 mg PO DAILY #7 tab 05/10/21 Rx release tamsulosin 0.4 mg capsule 0.4 mg PO DAILY #7 cap 05/10/21 Rx Patient History Medical History Asthma BPH (benign prostatic hyperplasia) CAD (coronary artery disease) Depression HLD (hyperlipidemia) HTN (hypertension) Major neurocognitive disorder MARTHA (obstructive sleep apnea) not on cpap, not compliant Rheumatoid arthritis Schizophrenia Surgical History History of colonoscopy History of esophagogastroduodenoscopy (EGD) History of heart artery stent History of prior ablation treatment Family History Other Coronary heart disease Social History Smoking Status: Never smoker Hx Alcohol Use: No Hx Substance Use: No Preferred Language: Colombian Communication Ability: Effective Visual Impairment: No Limitations Hearing Ability: Normal Clerical Clerk Required: No Beliefs That Will Affect Care: None Current Living Situation: Alone Feels Safe at Home: Yes Assistive Devices: Denture - Upper, Glasses and Walker Physical Exam Physical Exam: On exam he sitting up in bed. He has reasonable strength of plantarflexion dorsiflexion quadriceps bilaterally. Negative logroll. Sensory is intact to light touch. Deep tendon reflexes diminished. Results & Data ([facility]) Vital Signs (Past 12 Hours) Vital Signs Temp Pulse Resp BP Pulse Ox 05/13/21 08:08 37 C 69 20 135/75 94
[2021-05-13] MEDS: amLODIPine BESYLATE 5 MG TAB PO SCH (09:18)
[2021-05-13] MEDS: ASPIRIN 81 MG ECTAB PO SCH (09:19)
[2021-05-13] MEDS: CLOPIDOGREL BISULFATE 75 MG TAB PO SCH (09:20)
[2021-05-13] MEDS: FUROSEMIDE 20 MG TAB PO SCH (09:21)
[2021-05-13] MEDS: ATORVASTATIN 40 MG TAB PO SCH (09:21)
[2021-05-13] MEDS: TAMSULOSIN HCL 0.4 MG CAP PO SCH (09:21)
[2021-05-13] MEDS: PANTOprazole 40 MG TAB PO SCH (09:22)
[2021-05-13] MEDS: GABAPENTIN 100 MG CAP PO SCH ×2 (09:22→20:27)
[2021-05-13] MEDS: FERROUS SULFATE 325 MG TAB PO SCH (09:22)
[2021-05-13] MEDS: METOPROLOL SUCC 25MG EXT REL TAB PO SCH ×2 (09:22→20:27)
[2021-05-13] MEDS: ESCITALOPRAM OXALATE 10 MG TAB PO SCH (09:22)
[2021-05-13] MEDS: MULTIVITAMIN TAB PO SCH (09:22)
[2021-05-13] MEDS: EZETIMIBE 10 MG TABLET PO SCH (09:22)
[2021-05-13] MEDS: FLUTICASONE/VILANTEROL 200/25MCG 14 PUFFS/INHALER INH SCH (09:23)
[2021-05-13] MEDS: DOCUSATE SODIUM 100 MG CAP PO SCH (09:29)
--- NOTE | 2021-05-13 16:19 | Hospitalist Progress Note ---
Date of Service May 13, 2021 Assessment & Plan (1) Encephalopathy: Plan: This is a 71-year-old male who has significant past medical history of CAD with history of CABG, HTN, HLD, MARTHA noncompliant with CPAP, asthma, BPH, schizophrenia, depression, major neurocognitive disorder who presented to ED via EMS secondary to dizziness. Patient currently in the process of transitioning care to [facility]. Outside records limited. Encephalopathy likely due to polypharmacy -> resolved On admission, clonazepam and olanzapine were listed as home medications however per Haily at [facility], patient was not taking those medications Clonazepam and risperidone were stopped, olanzapine 2.5 mg qHS started Possible early onset dementia per notes, but official psychiatry notes unavailable from OSH (2) CAD (coronary artery disease): Plan: S/p CABG in 2018, recent stent placement at OSH one month ago-records not available Cont ASA, Plavix, statin, beta laverne Currently in the process of transferring care to [facility] cardiology Patient has had intermittent chest pain relieved by nitroglycerin. EKG is unchanged, troponin negative. Asked for cardiology to reevaluate the patient 05/09, metoprolol tartrate changed to metoprolol succinate. Planning for outpatient stress test (3) Leg pain: Plan: Reporting medial right thigh pain radiating into the right calf with associated right foot numbness and tingling. This has been present for at least 2 weeks Lumbar spine x-ray unremarkable MRI Lumbar spine shows significant diseae Appreciate Ortho input, recommend trial of interventional pain management continue Tylenol, gabapentin 100 mg twice daily, PRN tramadol Ambulatory dysfunction, PT and OT now recommending rehab (4) Bigeminy: Plan: PVC ablation in 2018, Benign per cardiology. Metoprolol initially increased to 50 mg twice daily --> reduce back to 25 mg twice daily due to persistent fatigue (5) Leukocytosis: Plan: There was a question of pneumonia on the CT, however, patient has a normal procalcitonin and no respiratory symptoms. He is afebrile and leukocytosis has resolved. Cont to monitor off abx. (6) BPH (benign prostatic hyperplasia): Plan: continue tamsulosin on 05/09 (confirmed with Haily at [facility]) Bladder scan, straight cath as needed (7) Acute hyponatremia: Plan: Na+ ~ 130 Possibly 05/10 lasix which has been held. May also be related to SSRI and this may be his baseline. Patient reports drinking 4-5 L of water daily at home on average. Cont with fluid restriction and cont to monitor Na has remained stable (8) HTN (hypertension): Plan: BP well controlled on current regimen, will continue (9) DVT prophylaxis: Plan: SQ Lovenox Dispo- awaiting rehab placement. Appreciate CM involvement. Admission and Anticipated Discharge Date Admission Date: May 04, 2021 Subjective "I feel better today" "I was told I will need surgery" Physical Exam Physical Exam: No acute distress, poor historian, pleasant and comfortable Respiratory: breathing comfortably on room air, no wheezing/rhonchi/rales Cardiovascular: regular rate and rhythm, no murmurs/rubs/gallops Gastrointestinal (Abdomen): soft, non tender Musculoskeletal: no edema Neurologic: awake, alert, spontaneously moving extremities Results & Data Results & Data ([facility]) Vital Signs (Past 12 Hours) Vital Signs Temp Pulse Pulse Resp BP Pulse Ox 05/13/21 15:40 36.7 C 55 L 20 117/72 96 05/13/21 08:08 37 C 69 20 135/75 94 Laboratory Results Short CBC 05/13/21 Range/Units 07:01 WBC 8.00 (4.8-10.8) K/uL Hgb 13.5 L (14.0-18.0) g/dL Hct 40.2 L (42-52) % Plt Count 177 (130-400) K/uL BMP 05/13/21 07:01 Sodium 135 L Potassium 4.2 Chloride 102 Carbon Dioxide 27 BUN 11 Creatinine 0.98 Glucose 104 H Calcium 8.9 Medications Administered Current Inpatient Medications Acetaminophen (Acetaminophen 500 Mg Tab) 1,000 mg PO Q8H TRINI Stop: 06/10/21 13:59 Last Admin: 05/13/21 13:08 Dose: 1,000 mg Documented by: Al Hydrox/Mg Hydrox/Simethicone (Aluminum/Magnesium Susp 30 Ml Udc) 15 ml PO Q4H PRN PRN Reason: Dyspepsia Stop: 06/03/21 20:21 Albuterol (Albuterol Hfa 8 Gm Inhaler) 2 puffs INH Q6H PRN PRN Reason: Shortness Of Breath Stop: 06/03/21 20:21 Last Admin: 05/09/21 10:43 Dose: 2 puffs Documented by: Amlodipine Besylate (Amlodipine Besylate 5 Mg Tab) 2.5 mg PO DAILY TRINI Stop: 06/04/21 08:59 Last Admin: 05/13/21 09:18 Dose: 2.5 mg Documented by: Aspirin (Aspirin 81 Mg Ectab) 81 mg PO DAILY TRINI Stop: 06/04/21 08:59 Last Admin: 05/13/21 09:19 Dose: 81 mg Documented by: Atorvastatin Calcium (Atorvastatin 40 Mg Tab) 40 mg PO DAILY TRINI Stop: 06/04/21 08:59 Last Admin: 05/13/21 09:21 Dose: 40 mg Documented by: Clopidogrel Bisulfate (Clopidogrel Bisulfate 75 Mg Tab) 75 mg PO DAILY TRINI Stop: 06/04/21 08:59 Last Admin: 05/13/21 09:20 Dose: 75 mg Documented by: Docusate Sodium (Docusate Sodium 100 Mg Cap) 100 mg PO DAILY TRINI Stop: 06/04/21 08:59 Last Admin: 05/13/21 09:29 Dose: 100 mg Documented by: Ezetimibe (Ezetimibe 10 Mg Tablet) 10 mg PO DAILY TRINI Stop: 06/04/21 08:59 Last Admin: 05/13/21 09:22 Dose: 10 mg Documented by: Enoxaparin Sodium (Enoxaparin Inj 40 Mg/0.4 Ml Syr) 40 mg SQ Q24H TRINI Stop: 06/04/21 15:59 Last Admin: 05/12/21 17:46 Dose: 40 mg Documented by: Escitalopram Oxalate (Escitalopram Oxalate 10 Mg Tab) 10 mg PO QAM TRINI Stop: 06/05/21 08:59 Last Admin: 05/13/21 09:22 Dose: 10 mg Documented by: Ferrous Sulfate (Ferrous Sulfate 325 Mg Tab) 325 mg PO QAM TRINI Stop: 06/08/21 08:59 Last Admin: 05/13/21 09:22 Dose: 325 mg Documented by: Fluticasone/Vilanterol (Fluticasone/Vilanterol 200/25mcg 14 Puffs/Inhaler) 1 puffs INH DAILY TRINI Stop: 06/04/21 08:59 Last Admin: 05/13/21 09:23 Dose: 1 puffs Documented by: Furosemide (Furosemide 20 Mg Tab) 20 mg PO QAM TRINI Stop: 06/09/21 14:59 Last Admin: 05/13/21 09:21 Dose: 20 mg Documented by: Gabapentin (Gabapentin 100 Mg Cap) 100 mg PO BID [facility] Stop: 06/09/21 15:14 Last Admin: 05/13/21 09:22 Dose: 100 mg Documented by: Magnesium Hydroxide (Magnesium Hydroxide Susp 30 Ml Udc) 30 ml PO Q12H PRN PRN Reason: Constipation Stop: 06/03/21 20:21 Last Admin: 05/12/21 09:28 Dose: 30 ml Documented by: Melatonin (Melatonin 3 Mg Tab) 4.5 mg PO HS PRN PRN Reason: Sleep Last Admin: 05/12/21 20:35 Dose: 4.5 mg Documented by: Menthol (Cough Drop (Sugar Free) Yao 24 Yao/1 Box) 1 yao BUCCAL PRN PRN PRN Reason: Sore Throat Stop: 06/04/21 14:04 Metoprolol Succinate (Metoprolol Succ 25mg Ext Rel Tab) 25 mg PO BID [facility] Stop: 06/08/21 20:59 Last Admin: 05/13/21 09:22 Dose: 25 mg Documented by: Multivitamins (Multivitamin Tab) 1 tab PO DAILY [facility] Stop: 06/04/21 08:59 Last Admin: 05/13/21 09:22 Dose: 1 tab Documented by: Olanzapine (Olanzapine 2.5 Mg Tab) 2.5 mg PO HS [facility] Stop: 06/04/21 20:59 Last Admin: 05/12/21 20:32 Dose: 2.5 mg Documented by: Ondansetron HCl (Ondansetron Inj 2 Mg/Ml 2 Ml Vial) 4 mg IV Q6H PRN PRN Reason: Nausea Stop: 06/03/21 20:21 Pantoprazole Sodium (Pantoprazole 40 Mg Tab) 40 mg PO DAILY [facility] Stop: 06/04/21 08:59 Last Admin: 05/13/21 09:22 Dose: 40 mg Documented by: Polyethylene Glycol (Polyethylene (Miralax) 17 Gm Pack) 17 gm PO DAILY PRN PRN Reason: Constipation Stop: 06/03/21 20:21 Last Admin: 05/11/21 08:20 Dose: 17 gm Documented by: Tamsulosin HCl (Tamsulosin Hcl 0.4 Mg Cap) 0.4 mg PO DAILY TRINI Stop: 06/09/21 08:59 Last Admin: 05/13/21 09:21 Dose: 0.4 mg Documented by: Tramadol HCl (Tramadol Hcl 50 Mg Tablet) 50 mg PO Q4H PRN PRN Reason: Pain Stop: 06/10/21 12:12 Last Admin: 05/12/21 20:31 Dose: 50 mg Documented by: (1) Leukocytosis Leukocytosis type: unspecified Qualified Code(s): D72.829 - Elevated white blood cell count, unspecified
[2021-05-13] MEDS: ENOXAPARIN INJ 40 MG/0.4 ML SYR SQ SCH (16:26)
[2021-05-13] MEDS: MELATONIN 3 MG TAB PO PRN (20:26)
[2021-05-13] MEDS: OLANZAPINE 2.5 MG TAB PO SCH (20:27)
[2021-05-13] MEDS: ALBUTEROL HFA 8 GM INHALER INH PRN (21:22)
[2021-05-14] MEDS: ACETAMINOPHEN 500 MG TAB PO SCH ×3 (04:18→20:41)
[2021-05-14] MEDS: amLODIPine BESYLATE 5 MG TAB PO SCH (08:08)
[2021-05-14] MEDS: FUROSEMIDE 20 MG TAB PO SCH (08:09)
[2021-05-14] MEDS: GABAPENTIN 100 MG CAP PO SCH ×2 (08:09→20:41)
[2021-05-14] MEDS: MULTIVITAMIN TAB PO SCH (08:09)
[2021-05-14] MEDS: CLOPIDOGREL BISULFATE 75 MG TAB PO SCH (08:09)
[2021-05-14] MEDS: METOPROLOL SUCC 25MG EXT REL TAB PO SCH ×2 (08:09→20:41)
[2021-05-14] MEDS: ATORVASTATIN 40 MG TAB PO SCH (08:09)
[2021-05-14] MEDS: FERROUS SULFATE 325 MG TAB PO SCH (08:10)
[2021-05-14] MEDS: PANTOprazole 40 MG TAB PO SCH (08:10)
[2021-05-14] MEDS: DOCUSATE SODIUM 100 MG CAP PO SCH (08:10)
[2021-05-14] MEDS: FLUTICASONE/VILANTEROL 200/25MCG 14 PUFFS/INHALER INH SCH (08:10)
[2021-05-14] MEDS: EZETIMIBE 10 MG TABLET PO SCH (08:10)
[2021-05-14] MEDS: ASPIRIN 81 MG ECTAB PO SCH (08:10)
[2021-05-14] MEDS: TAMSULOSIN HCL 0.4 MG CAP PO SCH (08:10)
[2021-05-14] MEDS: ESCITALOPRAM OXALATE 10 MG TAB PO SCH (08:10)
--- NOTE | 2021-05-14 12:30 | Hospitalist Progress Note ---
Date of Service May 14, 2021 Assessment & Plan (1) Encephalopathy: Plan: This is a 71-year-old male who has significant past medical history of CAD with history of CABG, HTN, HLD, MARTHA noncompliant with CPAP, asthma, BPH, schizophrenia, depression, major neurocognitive disorder who presented to ED via EMS secondary to dizziness. Patient currently in the process of transitioning care to [facility]. Outside records limited. Encephalopathy likely due to polypharmacy -> resolved On admission, clonazepam and olanzapine were listed as home medications however per Haily at [facility], patient was not taking those medications Clonazepam and risperidone were stopped, olanzapine 2.5 mg qHS started Possible early onset dementia per notes, but official psychiatry notes unavailable from OSH (2) CAD (coronary artery disease): Plan: S/p CABG in 2018, recent stent placement at OSH one month ago-records not available Cont ASA, Plavix, statin, beta laverne Currently in the process of transferring care to [facility] cardiology Patient has had intermittent chest pain relieved by nitroglycerin. EKG is unchanged, troponin negative. Asked for cardiology to reevaluate the patient 05/09, metoprolol tartrate changed to metoprolol succinate. Planning for outpatient stress test (3) Leg pain: Plan: Reporting medial right thigh pain radiating into the right calf with associated right foot numbness and tingling. This has been present for at least 2 weeks Lumbar spine x-ray unremarkable MRI Lumbar spine shows significant diseae Appreciate Ortho input, recommend trial of interventional pain management continue Tylenol, gabapentin 100 mg twice daily, PRN tramadol Ambulatory dysfunction, PT and OT now recommending rehab Pain management consult pending (4) Bigeminy: Plan: PVC ablation in 2018, Benign per cardiology. Metoprolol initially increased to 50 mg twice daily --> reduce back to 25 mg twice daily due to persistent fatigue (5) Leukocytosis: Plan: There was a question of pneumonia on the CT, however, patient has a normal procalcitonin and no respiratory symptoms. He is afebrile and leukocytosis has resolved. Cont to monitor off abx. (6) BPH (benign prostatic hyperplasia): Plan: continue tamsulosin on 05/09 (confirmed with Haily at [facility]) Bladder scan, straight cath as needed (7) Acute hyponatremia: Plan: Na+ ~ 130 Possibly 2/2 lasix which has been held. May also be related to SSRI and this may be his baseline. Patient reports drinking 4-5 L of water daily at home on average. Cont with fluid restriction and cont to monitor Na has remained stable (8) HTN (hypertension): Plan: BP well controlled on current regimen, will continue (9) DVT prophylaxis: Plan: SQ Lovenox Dispo- awaiting rehab placement. Appreciate CM involvement. Admission and Anticipated Discharge Date Admission Date: May 04, 2021 Subjective "I walked further today", reports improved right leg tingling Physical Exam Physical Exam: sitting in bed, eating lunch, appears comfortable Respiratory: breathing comfortably on room air, no wheezing/rhonchi/rales Cardiovascular: regular rate and rhythm, no murmurs/rubs/gallops Gastrointestinal (Abdomen): soft, non tender Musculoskeletal: no edema Neurologic: awake, alert, spontaneously moving extremities Results & Data Results & Data ([facility]) Vital Signs (Past 12 Hours) Vital Signs Temp Pulse Resp BP Pulse Ox 05/14/21 07:50 36.7 C 57 L 18 131/72 95 Laboratory Results 05/13/21 Na - 135 Diagnostic Findings MRI Lumbar-- IMPRESSION: 1. Degenerative disc and degenerative facet joint disease throughout the lumbar spine. The findings are most marked at L4-5 with a broad-based right lateral disc protrusion/herniation present. There is associated moderate to marked central canal stenosis and right foraminal stenosis as delineated above. 2. Segmental central canal and foraminal stenosis also present at additional disc space levels as delineated above. (1) Leukocytosis Leukocytosis type: unspecified Qualified Code(s): D72.829 - Elevated white blood cell count, unspecified
[2021-05-14] MEDS: ENOXAPARIN INJ 40 MG/0.4 ML SYR SQ SCH (16:43)
[2021-05-14] MEDS: POLYETHYLENE (MIRALAX) 17 GM PACK PO PRN (18:42)
[2021-05-14] MEDS: MELATONIN 3 MG TAB PO PRN (20:40)
[2021-05-14] MEDS: OLANZAPINE 2.5 MG TAB PO SCH (20:41)
[2021-05-15] MEDS: ACETAMINOPHEN 500 MG TAB PO SCH ×3 (05:37→22:14)
[2021-05-15] MEDS: PANTOprazole 40 MG TAB PO SCH (08:43)
[2021-05-15] MEDS: EZETIMIBE 10 MG TABLET PO SCH (08:43)
[2021-05-15] MEDS: MULTIVITAMIN TAB PO SCH (08:43)
[2021-05-15] MEDS: FUROSEMIDE 20 MG TAB PO SCH (08:43)
[2021-05-15] MEDS: FERROUS SULFATE 325 MG TAB PO SCH (08:43)
[2021-05-15] MEDS: CLOPIDOGREL BISULFATE 75 MG TAB PO SCH (08:43)
[2021-05-15] MEDS: TAMSULOSIN HCL 0.4 MG CAP PO SCH (08:43)
[2021-05-15] MEDS: GABAPENTIN 100 MG CAP PO SCH ×3 (08:43→20:20)
[2021-05-15] MEDS: ASPIRIN 81 MG ECTAB PO SCH (08:43)
[2021-05-15] MEDS: amLODIPine BESYLATE 5 MG TAB PO SCH (08:43)
[2021-05-15] MEDS: ATORVASTATIN 40 MG TAB PO SCH (08:43)
[2021-05-15] MEDS: ESCITALOPRAM OXALATE 10 MG TAB PO SCH (08:44)
[2021-05-15] MEDS: METOPROLOL SUCC 25MG EXT REL TAB PO SCH ×2 (08:44→20:20)
[2021-05-15] MEDS: FLUTICASONE/VILANTEROL 200/25MCG 14 PUFFS/INHALER INH SCH (08:44)
[2021-05-15] MEDS: DOCUSATE SODIUM 100 MG CAP PO SCH (08:46)
--- NOTE | 2021-05-15 09:03 | Pain Management Consultation ---
Date of Consultation May 15, 2021 Assessment & Plan (1) Neurogenic claudication due to lumbar spinal stenosis: * Will increase Gabapentin to 100mg three times daily. He states that the Kevin pentin has been helping the lower extremity numbness and not experiencing any side effects. * Voltaren gel was ordered. Apply onto the right hip region. This right hip pain is likely gluteal medius bursitis and likely related to his lack of movement during this hospitalization. With Voltaren gel and resuming his typical exercise this will likely resolve in a week or so. * Not a candidate for lumbar epidural injections at this time as he did have an [place] last month requiring cardiac stent placement and placed on Plavix. Post [place] should be on Plavix and aspirin per cardiology recommendations. Interventional pain management would require holding of plavix for 7 days prior to procedure which is not possible at this time. * Continue Tramadol 50mg x 6 hours PRN. * Patient is reporting an overall improvement in his pain and does request discharge to home. History of Present Illness Reason for Consultation: Right hip pain; bilateral foot numbness Attending Physician: Terra Banks MD History of Present Illness Mr. Ruiz is a 71-year-old male has been admitted to the [facility] for lightheadedness, dizziness, confusion. Symptoms have resolved. Consult has been placed for low back pain that has been ongoing for several months without any known injury. He states that the majority of the lumbar pain that he was experiencing is no longer painful. He will get a mild ache in the low back depending on his activity. The majority of his complaint is burning along the plantar aspect of the feet. He may experience a shooting pain down the legs if he extends. Symptoms do resolve with lumbar flexion. He is currently receiving gabapentin 100 mg twice daily, and tramadol 50 mg every 4 hours if needed. Patient states that he is tolerating the medicines well and denies any side effects to the medications. He has noticed the gabapentin providing moderate relief of radicular pain in the legs. The burning and numbness along the bottom of the feet does still cause some difficulty sleeping. He denies any bowel/bladder incontinence, saddle anesthesia, foot drop, falls. Case discussed with Dr. Marina Robles Pain Assessment Full Body Front + Back: 1. 2. Allergies Allergy/AdvReac Type Severity Reaction Status Date / Time No Known Allergies Allergy Verified 05/04/21 14:10 Home Medications Medication Instructions Recorded Confirmed Type albuterol sulfate 90 mcg/actuation 2 puff INHALATION 6XD PRN 05/04/21 05/04/21 History aerosol inhaler (Proventil HFA) docusate sodium 100 mg capsule 100 mg PO DAILY 05/04/21 05/04/21 History (Colace) fluticasone 250 mcg-salmeterol 50 1 inh INHALATION BID 05/04/21 05/04/21 History mcg/dose blistr powdr for inhalation (Advair Diskus) melatonin 5 mg tablet 5 mg PO HS PRN 05/04/21 05/04/21 History multivitamin 1 tab PO DAILY 05/04/21 05/04/21 History nitroglycerin 0.4 mg sublingual 0.4 mg SUBLINGUAL UD PRN 05/09/21 05/09/21 History tablet amlodipine 2.5 mg tablet 2.5 mg PO DAILY #7 tab 05/10/21 Rx aspirin 81 mg tablet,delayed 81 mg PO DAILY #7 tab 05/10/21 Rx release atorvastatin 40 mg tablet 40 mg PO DAILY #7 tab 05/10/21 Rx clopidogrel 75 mg tablet 75 mg PO DAILY #7 tab 05/10/21 Rx escitalopram oxalate 10 mg tablet 10 mg PO QAM #7 tab 05/10/21 Rx ezetimibe 10 mg tablet (Zetia) 10 mg PO DAILY #7 tab 05/10/21 Rx ferrous sulfate 324 mg (65 mg 324 mg PO DAILY #7 tab 05/10/21 Rx iron) tablet,delayed release furosemide 20 mg tablet 20 mg PO DAILY #7 tab 05/10/21 Rx metoprolol succinate 25 mg 25 mg PO BID #14 tab 05/10/21 Rx tablet,extended release 24 hr olanzapine 2.5 mg tablet 2.5 mg PO HS #7 tab 05/10/21 Rx pantoprazole 20 mg tablet,delayed 20 mg PO DAILY #7 tab 05/10/21 Rx release tamsulosin 0.4 mg capsule 0.4 mg PO DAILY #7 cap 05/10/21 Rx Patient History Medical History Asthma BPH (benign prostatic hyperplasia) CAD (coronary artery disease) Depression HLD (hyperlipidemia) HTN (hypertension) Major neurocognitive disorder MARTHA (obstructive sleep apnea) not on cpap, not compliant Rheumatoid arthritis Schizophrenia Surgical History History of colonoscopy History of esophagogastroduodenoscopy (EGD) History of heart artery stent History of prior ablation treatment Family History Other Coronary heart disease Social History Smoking Status: Never smoker Hx Alcohol Use: No Hx Substance Use: No Preferred Language: Persian Communication Ability: Effective Visual Impairment: No Limitations Hearing Ability: Normal Sap Bpc Architect Required: No Beliefs That Will Affect Care: None Current Living Situation: Alone Feels Safe at Home: Yes Assistive Devices: Walker Physical Exam Physical Exam: GENERAL: This is a 71-year-old male that does not appear in any acute distress. HEAD/FACE: Normocephalic and atraumatic. EYES: No drainage or conjunctival injection. ENT: Nose without bleeding or discharge. Oral mucosa moist. NECK: Full ROM without apparent pain. No swelling or masses noted. RESPIRATORY: Patient with unlabored breathing. No signs of respiratory distress. CHEST/AXILLA: Chest movement symmetrical. No deformities noted. ABDOMEN/GI: No distension BACK: Moves without difficulty. No lumbar midline, facet joint, SI joint tenderness. No myofascial spasm or trigger points noted. SKIN: [place], warm and dry. No rash noted. MS/EXTREMITY: No swelling, no deformities. Negative straight leg raise. There is focal tenderness along the right gluteus medius bursa to palpation. NEURO: Alert and appears oriented. Speech is fluent. Cranial Nerves are grossly intact. PSYCH: Alert, pleasant, affect is calm
[2021-05-15] MEDS: DICLOFENAC SOD 1% GEL 100 GM TUBE EXT SCH ×3 (11:32→20:20)
--- NOTE | 2021-05-15 16:52 | Hospitalist Progress Note ---
Date of Service May 15, 2021 Assessment & Plan (1) Encephalopathy: Plan: This is a 71-year-old male who has significant past medical history of CAD with history of CABG, HTN, HLD, MARTHA noncompliant with CPAP, asthma, BPH, schizophrenia, depression, major neurocognitive disorder who presented to ED via EMS secondary to dizziness. Patient currently in the process of transitioning care to [facility]. Outside records limited. Encephalopathy likely due to polypharmacy -> resolved On admission, clonazepam and olanzapine were listed as home medications however per Haily at [facility], patient was not taking those medications Clonazepam and risperidone were stopped, olanzapine 2.5 mg qHS started Possible early onset dementia per notes, but official psychiatry notes unavailable from OSH (2) CAD (coronary artery disease): Plan: S/p CABG in 2018, recent stent placement at OSH one month ago-records not available Cont ASA, Plavix, statin, beta laverne Currently in the process of transferring care to [facility] cardiology Patient has had intermittent chest pain relieved by nitroglycerin. EKG is unchanged, troponin negative. Asked for cardiology to reevaluate the patient 05/09, metoprolol tartrate changed to metoprolol succinate. Planning for outpatient stress test (3) Leg pain: Plan: Reporting medial right thigh pain radiating into the right calf with associated right foot numbness and tingling. This has been present for at least 2 weeks Lumbar spine x-ray unremarkable MRI Lumbar spine shows significant disease Appreciate Ortho input, recommend trial of interventional pain management Evaluated by pain management today, patient not a candidate for injection due to recent [place] and need to remain on plavix continue Tylenol, gabapentin 100 mg increased to TID, PRN tramadol , voltaren gel Ambulatory dysfunction, PT and OT recommends SNF (4) Bigeminy: Plan: PVC ablation in 2018, Benign per cardiology. Metoprolol initially increased to 50 mg twice daily --> reduce back to 25 mg twice daily due to persistent fatigue (5) Leukocytosis: Plan: There was a question of pneumonia on the CT, however, patient has a normal procalcitonin and no respiratory symptoms. He is afebrile and leukocytosis has resolved. Cont to monitor off abx. (6) BPH (benign prostatic hyperplasia): Plan: continue tamsulosin on 05/09 (confirmed with Haily at [facility]) Bladder scan, straight cath as needed (7) Acute hyponatremia: Plan: Na+ ~ 130 Possibly 2/2 lasix which has been held. May also be related to SSRI and this may be his baseline. Patient reports drinking 4-5 L of water daily at home on average. Cont with fluid restriction and cont to monitor Na has remained stable (8) HTN (hypertension): Plan: BP well controlled on current regimen, will continue (9) DVT prophylaxis: Plan: SQ Lovenox Dispo- awaiting SNF placement. Appreciate CM involvement. Patient is medically stable for discharge Admission and Anticipated Discharge Date Admission Date: May 04, 2021 Subjective Patient tearful today, "please get me out of here" "I'm going crazy sitting in this room" Reports right leg tingling and pain is overall improved Physical Exam Physical Exam: tearful, no acute distress Laying in bed Respiratory: breathing comfortably on room air, no wheezing/rhonchi/rales Cardiovascular: regular rate and rhythm, no murmurs/rubs/gallops Musculoskeletal: no edema Neurologic: awake, alert Results & Data Results & Data ([facility]) Vital Signs (Past 12 Hours) Vital Signs Temp Pulse Resp BP Pulse Ox 05/15/21 15:41 37.2 C 66 16 134/73 95 05/15/21 07:10 36.3 C L 67 16 138/56 L 96 Medications Administered Current Inpatient Medications Acetaminophen (Acetaminophen 500 Mg Tab) 1,000 mg PO Q8H [facility] Stop: 06/10/21 13:59 Last Admin: 05/15/21 13:05 Dose: 1,000 mg Documented by: Al Hydrox/Mg Hydrox/Simethicone (Aluminum/Magnesium Susp 30 Ml Udc) 15 ml PO Q4H PRN PRN Reason: Dyspepsia Stop: 06/03/21 20:21 Albuterol (Albuterol Hfa 8 Gm Inhaler) 2 puffs INH Q6H PRN PRN Reason: Shortness Of Breath Stop: 06/03/21 20:21 Last Admin: 05/13/21 21:22 Dose: 2 puffs Documented by: Amlodipine Besylate (Amlodipine Besylate 5 Mg Tab) 2.5 mg PO DAILY TRINI Stop: 06/04/21 08:59 Last Admin: 05/15/21 08:43 Dose: 2.5 mg Documented by: Aspirin (Aspirin 81 Mg Ectab) 81 mg PO DAILY TRINI Stop: 06/04/21 08:59 Last Admin: 05/15/21 08:43 Dose: 81 mg Documented by: Atorvastatin Calcium (Atorvastatin 40 Mg Tab) 40 mg PO DAILY TRINI Stop: 06/04/21 08:59 Last Admin: 05/15/21 08:43 Dose: 40 mg Documented by: Clopidogrel Bisulfate (Clopidogrel Bisulfate 75 Mg Tab) 75 mg PO DAILY TRINI Stop: 06/04/21 08:59 Last Admin: 05/15/21 08:43 Dose: 75 mg Documented by: Diclofenac Sodium (Diclofenac Sod 1% Gel 100 Gm Tube) 2 gm EXT TID TR[facility] Stop: 06/14/21 08:59 Last Admin: 05/15/21 13:05 Dose: 2 gm Documented by: Docusate Sodium (Docusate Sodium 100 Mg Cap) 100 mg PO DAILY TRINI Stop: 06/04/21 08:59 Last Admin: 05/15/21 08:46 Dose: 100 mg Documented by: Ezetimibe (Ezetimibe 10 Mg Tablet) 10 mg PO DAILY TRINI Stop: 06/04/21 08:59 Last Admin: 05/15/21 08:43 Dose: 10 mg Documented by: Enoxaparin Sodium (Enoxaparin Inj 40 Mg/0.4 Ml Syr) 40 mg SQ Q24H [facility] Stop: 06/04/21 15:59 Last Admin: 05/14/21 16:43 Dose: 40 mg Documented by: Escitalopram Oxalate (Escitalopram Oxalate 10 Mg Tab) 10 mg PO QAM [facility] Stop: 06/05/21 08:59 Last Admin: 05/15/21 08:44 Dose: 10 mg Documented by: Ferrous Sulfate (Ferrous Sulfate 325 Mg Tab) 325 mg PO QAM [facility] Stop: 06/08/21 08:59 Last Admin: 05/15/21 08:43 Dose: 325 mg Documented by: Fluticasone/Vilanterol (Fluticasone/Vilanterol 200/25mcg 14 Puffs/Inhaler) 1 puffs INH DAILY [facility] Stop: 06/04/21 08:59 Last Admin: 05/15/21 08:44 Dose: 1 puffs Documented by: Furosemide (Furosemide 20 Mg Tab) 20 mg PO QAM [facility] Stop: 06/09/21 14:59 Last Admin: 05/15/21 08:43 Dose: 20 mg Documented by: Gabapentin (Gabapentin 100 Mg Cap) 100 mg PO TID [facility] Stop: 06/14/21 13:59 Last Admin: 05/15/21 13:04 Dose: 100 mg Documented by: Magnesium Hydroxide (Magnesium Hydroxide Susp 30 Ml Udc) 30 ml PO Q12H PRN PRN Reason: Constipation Stop: 06/03/21 20:21 Last Admin: 05/12/21 09:28 Dose: 30 ml Documented by: Melatonin (Melatonin 3 Mg Tab) 4.5 mg PO HS PRN PRN Reason: Sleep Last Admin: 05/14/21 20:40 Dose: 4.5 mg Documented by: Menthol (Cough Drop (Sugar Free) Yao 24 Yao/1 Box) 1 yao BUCCAL PRN PRN PRN Reason: Sore Throat Stop: 06/04/21 14:04 Metoprolol Succinate (Metoprolol Succ 25mg Ext Rel Tab) 25 mg PO BID TR[facility] Stop: 06/08/21 20:59 Last Admin: 05/15/21 08:44 Dose: 25 mg Documented by: Multivitamins (Multivitamin Tab) 1 tab PO DAILY TRINI Stop: 06/04/21 08:59 Last Admin: 05/15/21 08:43 Dose: 1 tab Documented by: Olanzapine (Olanzapine 2.5 Mg Tab) 2.5 mg PO HS [facility] Stop: 06/04/21 20:59 Last Admin: 05/14/21 20:41 Dose: 2.5 mg Documented by: Ondansetron HCl (Ondansetron Inj 2 Mg/Ml 2 Ml Vial) 4 mg IV Q6H PRN PRN Reason: Nausea Stop: 06/03/21 20:21 Pantoprazole Sodium (Pantoprazole 40 Mg Tab) 40 mg PO DAILY TRINI Stop: 06/04/21 08:59 Last Admin: 05/15/21 08:43 Dose: 40 mg Documented by: Polyethylene Glycol (Polyethylene (Miralax) 17 Gm Pack) 17 gm PO DAILY PRN PRN Reason: Constipation Stop: 06/03/21 20:21 Last Admin: 05/14/21 18:42 Dose: 17 gm Documented by: Tamsulosin HCl (Tamsulosin Hcl 0.4 Mg Cap) 0.4 mg PO DAILY TRINI Stop: 06/09/21 08:59 Last Admin: 05/15/21 08:43 Dose: 0.4 mg Documented by: Tramadol HCl (Tramadol Hcl 50 Mg Tablet) 50 mg PO Q4H PRN PRN Reason: Pain Stop: 06/10/21 12:12 Last Admin: 05/12/21 20:31 Dose: 50 mg Documented by: (1) Leukocytosis Leukocytosis type: unspecified Qualified Code(s): D72.829 - Elevated white blood cell count, unspecified
[2021-05-15] MEDS: ENOXAPARIN INJ 40 MG/0.4 ML SYR SQ SCH (17:01)
[2021-05-15] MEDS: OLANZAPINE 2.5 MG TAB PO SCH (20:20)
[2021-05-15] MEDS: MELATONIN 3 MG TAB PO PRN (20:28)
[2021-05-16] MEDS: ACETAMINOPHEN 500 MG TAB PO SCH ×3 (05:35→21:28)
[2021-05-16] MEDS: GABAPENTIN 100 MG CAP PO SCH ×3 (09:04→21:30)
[2021-05-16] MEDS: METOPROLOL SUCC 25MG EXT REL TAB PO SCH ×2 (09:04→21:28)
[2021-05-16] MEDS: FUROSEMIDE 20 MG TAB PO SCH (09:05)
[2021-05-16] MEDS: MULTIVITAMIN TAB PO SCH (09:06)
[2021-05-16] MEDS: ATORVASTATIN 40 MG TAB PO SCH (09:06)
[2021-05-16] MEDS: ASPIRIN 81 MG ECTAB PO SCH (09:06)
[2021-05-16] MEDS: ESCITALOPRAM OXALATE 10 MG TAB PO SCH (09:06)
[2021-05-16] MEDS: amLODIPine BESYLATE 5 MG TAB PO SCH (09:06)
[2021-05-16] MEDS: EZETIMIBE 10 MG TABLET PO SCH (09:06)
[2021-05-16] MEDS: TAMSULOSIN HCL 0.4 MG CAP PO SCH (09:07)
[2021-05-16] MEDS: FERROUS SULFATE 325 MG TAB PO SCH (09:08)
[2021-05-16] MEDS: PANTOprazole 40 MG TAB PO SCH (09:09)
[2021-05-16] MEDS: FLUTICASONE/VILANTEROL 200/25MCG 14 PUFFS/INHALER INH SCH (09:09)
[2021-05-16] MEDS: CLOPIDOGREL BISULFATE 75 MG TAB PO SCH (09:10)
[2021-05-16] MEDS: DICLOFENAC SOD 1% GEL 100 GM TUBE EXT SCH ×3 (09:10→21:28)
[2021-05-16] MEDS: DOCUSATE SODIUM 100 MG CAP PO SCH (09:11)
--- NOTE | 2021-05-16 12:43 | Hospitalist Progress Note ---
Date of Service May 16, 2021 Assessment & Plan (1) Encephalopathy: Plan: This is a 71-year-old male who has significant past medical history of CAD with history of CABG, HTN, HLD, MARTHA noncompliant with CPAP, asthma, BPH, schizophrenia, depression, major neurocognitive disorder who presented to ED via EMS secondary to dizziness. Patient currently in the process of transitioning care to [facility]. Outside records limited. Encephalopathy likely due to polypharmacy -> resolved On admission, clonazepam and olanzapine were listed as home medications however per Haily at [facility], patient was not taking those medications Clonazepam and risperidone were stopped, olanzapine 2.5 mg qHS started Possible early onset dementia per notes, but official psychiatry notes unavailable from OSH (2) CAD (coronary artery disease): Plan: S/p CABG in 2018, recent stent placement at OSH one month ago-records not available Cont ASA, Plavix, statin, beta laverne Currently in the process of transferring care to [facility] cardiology Patient has had intermittent chest pain relieved by nitroglycerin. EKG is unchanged, troponin negative. Asked for cardiology to reevaluate the patient 05/09, metoprolol tartrate changed to metoprolol succinate. Planning for outpatient stress test (3) Leg pain: Plan: Reporting medial right thigh pain radiating into the right calf with associated right foot numbness and tingling. This has been present for at least 2 weeks Lumbar spine x-ray unremarkable MRI Lumbar spine shows significant disease Appreciate Ortho input, recommend trial of interventional pain management Evaluated by pain management today, patient not a candidate for injection due to recent [place] and need to remain on plavix continue Tylenol, gabapentin 100 mg increased to TID, PRN tramadol , voltaren gel Ambulatory dysfunction, PT and OT recommends SNF (4) Bigeminy: Plan: PVC ablation in 2018, Benign per cardiology. Metoprolol initially increased to 50 mg twice daily --> reduce back to 25 mg twice daily due to persistent fatigue (5) Leukocytosis: Plan: There was a question of pneumonia on the CT, however, patient has a normal procalcitonin and no respiratory symptoms. He is afebrile and leukocytosis has resolved. Cont to monitor off abx. (6) BPH (benign prostatic hyperplasia): Plan: continue tamsulosin on 05/09 (confirmed with Haily at [facility]) Bladder scan, straight cath as needed (7) Acute hyponatremia: Plan: Na+ ~ 130 Possibly 2/2 lasix which has been held. May also be related to SSRI and this may be his baseline. Patient reports drinking 4-5 L of water daily at home on average. Cont with fluid restriction and cont to monitor Na has remained stable (8) HTN (hypertension): Plan: BP well controlled on current regimen, will continue (9) DVT prophylaxis: Plan: SQ Lovenox Dispo- awaiting SNF placement. Appreciate CM involvement. Patient is medically stable for discharge Pt was seen and examined in collaboration with Dr. Banks, please see addendum Admission and Anticipated Discharge Date Admission Date: May 04, 2021 Supervising Physician Co-Signing Physician Notes Patient was seen and evaluated independently. Chart was reviewed. Case was discussed with KENYATTA. Agree with assessment and plan as above Subjective Pt was seen and examined in room 351-1. F/U Bigeminy, Dizziness, encephalopathy, leg pain. 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 He denies any pain. +BM yesterday. Denies f/c/s, chest pain, sob, n/v/d. +Flat us. Review of Systems Review of Systems: All systems reviewed & are unremarkable except as noted in HPI & below Physical Exam Physical Exam: Gen: WD/WN, NAD, A&O x3 HEENT: Normocephalic, atraumatic, conjunctivae moist, sclerae anicteric, mucous membranes moist. Lung: Clear to Auscultation bilaterally, no wheezes/rales/rhonchi Heart: Regular rate, regular rhythm, no murmurs, rubs, or gallops Abdomen: Soft, NT, ND +BS x 4 Extremities: No edema Skin: Warm, no rash, negative turgor. Results & Data Results & Data ([facility]) Vital Signs (Past 12 Hours) Vital Signs Temp Pulse Resp BP Pulse Ox 05/16/21 07:21 36.7 C 55 L 16 143/74 H 96 (1) Leukocytosis Leukocytosis type: unspecified Qualified Code(s): D72.829 - Elevated white blood cell count, unspecified
[2021-05-16] MEDS: ENOXAPARIN INJ 40 MG/0.4 ML SYR SQ SCH (15:48)
[2021-05-16] MEDS: OLANZAPINE 2.5 MG TAB PO SCH (21:28)
[2021-05-16] MEDS: MELATONIN 3 MG TAB PO PRN (21:28)
[2021-05-17] MEDS: ACETAMINOPHEN 500 MG TAB PO SCH ×3 (05:49→21:36)
[2021-05-17] MEDS: METOPROLOL SUCC 25MG EXT REL TAB PO SCH ×2 (08:38→21:36)
[2021-05-17] MEDS: TAMSULOSIN HCL 0.4 MG CAP PO SCH (08:38)
[2021-05-17] MEDS: MULTIVITAMIN TAB PO SCH (08:38)
[2021-05-17] MEDS: PANTOprazole 40 MG TAB PO SCH (08:38)
[2021-05-17] MEDS: FERROUS SULFATE 325 MG TAB PO SCH (08:39)
[2021-05-17] MEDS: amLODIPine BESYLATE 5 MG TAB PO SCH (08:39)
[2021-05-17] MEDS: ESCITALOPRAM OXALATE 10 MG TAB PO SCH (08:39)
[2021-05-17] MEDS: DICLOFENAC SOD 1% GEL 100 GM TUBE EXT SCH ×3 (08:39→21:37)
[2021-05-17] MEDS: ATORVASTATIN 40 MG TAB PO SCH (08:39)
[2021-05-17] MEDS: ASPIRIN 81 MG ECTAB PO SCH (08:39)
[2021-05-17] MEDS: EZETIMIBE 10 MG TABLET PO SCH (08:39)
[2021-05-17] MEDS: GABAPENTIN 100 MG CAP PO SCH ×3 (08:39→21:37)
[2021-05-17] MEDS: CLOPIDOGREL BISULFATE 75 MG TAB PO SCH (08:39)
[2021-05-17] MEDS: FUROSEMIDE 20 MG TAB PO SCH (08:39)
[2021-05-17] MEDS: FLUTICASONE/VILANTEROL 200/25MCG 14 PUFFS/INHALER INH SCH (08:40)
[2021-05-17] MEDS: DOCUSATE SODIUM 100 MG CAP PO SCH (08:47)
--- NOTE | 2021-05-17 13:01 | Hospitalist Progress Note ---
Date of Service May 17, 2021 Assessment & Plan (1) Encephalopathy: Plan: This is a 71-year-old male who has significant past medical history of CAD with history of CABG, HTN, HLD, MARTHA noncompliant with CPAP, asthma, BPH, schizophrenia, depression, major neurocognitive disorder who presented to ED via EMS secondary to dizziness. Patient currently in the process of transitioning care to [facility]. Outside records limited. Encephalopathy likely due to polypharmacy -> resolved On admission, clonazepam and olanzapine were listed as home medications however per Haily at [facility], patient was not taking those medications Clonazepam and risperidone were stopped, olanzapine 2.5 mg qHS started Possible early onset dementia per notes, but official psychiatry notes unavailable from OSH (2) CAD (coronary artery disease): Plan: S/p CABG in 2018, recent stent placement at OSH one month ago-records not available Cont ASA, Plavix, statin, beta laverne Currently in the process of transferring care to [facility] cardiology Patient has had intermittent chest pain relieved by nitroglycerin. EKG is unchanged, troponin negative. Asked for cardiology to reevaluate the patient 05/09, metoprolol tartrate changed to metoprolol succinate. Planning for outpatient stress test (3) Leg pain: Plan: Reporting medial right thigh pain radiating into the right calf with associated right foot numbness and tingling. This has been present for at least 2 weeks Lumbar spine x-ray unremarkable MRI Lumbar spine shows significant disease Appreciate Ortho input, recommend trial of interventional pain management Evaluated by pain management today, patient not a candidate for injection due to recent [place] and need to remain on plavix continue Tylenol, gabapentin 100 mg increased to TID, PRN tramadol , voltaren gel Ambulatory dysfunction, PT and OT recommends SNF (4) Bigeminy: Plan: PVC ablation in 2018, Benign per cardiology. Metoprolol initially increased to 50 mg twice daily --> reduce back to 25 mg twice daily due to persistent fatigue (5) Leukocytosis: Plan: There was a question of pneumonia on the CT, however, patient has a normal procalcitonin and no respiratory symptoms. He is afebrile and leukocytosis has resolved. Cont to monitor off abx. (6) BPH (benign prostatic hyperplasia): Plan: continue tamsulosin on 05/09 (confirmed with Haily at [facility]) Bladder scan, straight cath as needed (7) Acute hyponatremia: Plan: Na+ ~ 130 Possibly 2/2 lasix which has been held. May also be related to SSRI and this may be his baseline. Patient reports drinking 4-5 L of water daily at home on average. Cont with fluid restriction and cont to monitor Na has remained stable (8) HTN (hypertension): Plan: BP well controlled on current regimen, will continue (9) DVT prophylaxis: Plan: SQ Lovenox Dispo- awaiting SNF placement. Appreciate CM involvement. Patient is medically stable for discharge. Possible D/C to [facility] on Saturday. Pt was seen and examined in collaboration with Dr. Orozco, please see addendum Admission and Anticipated Discharge Date Admission Date: May 04, 2021 Supervising Physician Co-Signing Physician Notes Patient was seen and evaluated independently. Chart was reviewed. Case was discussed with KENYATTA. Agree with assessment and plan as above. Physical Exam Gen-AAO x 3, NAD, Afebrile Head-NCAT, EOMI, PERRLA, Anicteric Sclera, No Posterior Pharyngeal Erythema Neck-Supple, No JVD, No Thyromegaly, No Masses, No LAD, No Bruits Lungs-Clear to Auscultation Bilaterally, No Rales, No Rhonchi, No Wheezing, No Crepitus Chest-No S4, +S1, +S2, No S3, No Murmurs, No Rubs, No Gallops, No Ectopy Abdomen-Soft, Bowel Sounds Present, Non Tender, Non Distended, No Hepatomegaly, No Splenomegaly, No Palpable Masses, No Rebound, No Rigidity, No Guarding Musculoskeletal-Full Range of Motion Bilaterally, No CVAT Extremities-No Cyanosis, No Clubbing, No Edema Nuero-Cranial Nerves II-XII grossly intact, Motor WNL, DTRs WNL, Strength WNL, Non Focal Psych-Normal Mood Subjective Pt was seen and examined in room 351-1. F/U Bigeminy, Dizziness, encephalopathy, leg pain. Feels leg pain and tingling in feet are improving. He is really tired today. "I'm being discharged saturday!" Denies cp, sob, n/v/d. Review of Systems Review of Systems: All systems reviewed & are unremarkable except as noted in HPI & below Physical Exam Physical Exam: Gen: WD/WN, NAD, A&O x3 HEENT: Normocephalic, atraumatic, conjunctivae moist, sclerae anicteric, mucous membranes moist. Lung: Clear to Auscultation bilaterally, no wheezes/rales/rhonchi Heart: Regular rate, regular rhythm, no murmurs, rubs, or gallops Abdomen: Soft, NT, ND +BS x 4 Extremities: No edema Skin: Warm, no rash, negative turgor. Results & Data Results & Data ([facility]) Vital Signs (Past 12 Hours) Vital Signs Temp Pulse Resp BP Pulse Ox 05/17/21 07:47 36.8 C 71 16 135/81 95 (1) Leukocytosis Leukocytosis type: unspecified Qualified Code(s): D72.829 - Elevated white blood cell count, unspecified
[2021-05-17] MEDS: ENOXAPARIN INJ 40 MG/0.4 ML SYR SQ SCH (17:26)
[2021-05-17] MEDS: OLANZAPINE 2.5 MG TAB PO SCH (21:37)
[2021-05-18] MEDS: MELATONIN 3 MG TAB PO PRN ×2 (01:40→22:14)
[2021-05-18] MEDS: ACETAMINOPHEN 500 MG TAB PO SCH ×3 (05:27→22:14)
[2021-05-18] MEDS: FUROSEMIDE 20 MG TAB PO SCH (08:57)
[2021-05-18] MEDS: CLOPIDOGREL BISULFATE 75 MG TAB PO SCH (08:57)
[2021-05-18] MEDS: METOPROLOL SUCC 25MG EXT REL TAB PO SCH ×2 (08:57→20:56)
[2021-05-18] MEDS: GABAPENTIN 100 MG CAP PO SCH ×3 (08:57→20:55)
[2021-05-18] MEDS: TAMSULOSIN HCL 0.4 MG CAP PO SCH (08:57)
[2021-05-18] MEDS: ATORVASTATIN 40 MG TAB PO SCH (08:58)
[2021-05-18] MEDS: amLODIPine BESYLATE 5 MG TAB PO SCH (08:58)
[2021-05-18] MEDS: DICLOFENAC SOD 1% GEL 100 GM TUBE EXT SCH ×3 (08:58→20:56)
[2021-05-18] MEDS: MULTIVITAMIN TAB PO SCH (08:58)
[2021-05-18] MEDS: EZETIMIBE 10 MG TABLET PO SCH (08:58)
[2021-05-18] MEDS: PANTOprazole 40 MG TAB PO SCH (08:58)
[2021-05-18] MEDS: FLUTICASONE/VILANTEROL 200/25MCG 14 PUFFS/INHALER INH SCH (08:58)
[2021-05-18] MEDS: ASPIRIN 81 MG ECTAB PO SCH (08:58)
[2021-05-18] MEDS: FERROUS SULFATE 325 MG TAB PO SCH (08:58)
[2021-05-18] MEDS: ESCITALOPRAM OXALATE 10 MG TAB PO SCH (08:58)
[2021-05-18] MEDS: DOCUSATE SODIUM 100 MG CAP PO SCH (09:06)
--- NOTE | 2021-05-18 11:32 | Hospitalist Progress Note ---
Date of Service May 18, 2021 Assessment & Plan (1) Encephalopathy: Plan: This is a 71-year-old male who has significant past medical history of CAD with history of CABG, HTN, HLD, MARTHA noncompliant with CPAP, asthma, BPH, schizophrenia, depression, major neurocognitive disorder who presented to ED via EMS secondary to dizziness. Patient currently in the process of transitioning care to [facility]. Outside records limited. Encephalopathy likely due to polypharmacy -> resolved On admission, clonazepam and olanzapine were listed as home medications however per Haily at [facility], patient was not taking those medications Clonazepam and risperidone were stopped, olanzapine 2.5 mg qHS started Possible early onset dementia per notes, but official psychiatry notes unavailable from OSH (2) CAD (coronary artery disease): Plan: S/p CABG in 2018, recent stent placement at OSH one month ago-records not available Cont ASA, Plavix, statin, beta laverne Currently in the process of transferring care to [facility] cardiology Patient has had intermittent chest pain relieved by nitroglycerin. EKG is unchanged, troponin negative. Asked for cardiology to reevaluate the patient 05/09, metoprolol tartrate changed to metoprolol succinate. Planning for outpatient stress test (3) Leg pain: Plan: Reporting medial right thigh pain radiating into the right calf with associated right foot numbness and tingling. This has been present for at least 2 weeks Lumbar spine x-ray unremarkable MRI Lumbar spine shows significant disease Appreciate Ortho input, recommend trial of interventional pain management Evaluated by pain management today, patient not a candidate for injection due to recent [place] and need to remain on plavix Continue Tylenol, gabapentin 100 mg increased to TID, PRN tramadol , Voltaren gel Ambulatory dysfunction, PT and OT recommends SNF (4) Bigeminy: Plan: PVC ablation in 2018, Benign per cardiology. Metoprolol initially increased to 50 mg twice daily --> reduce back to 25 mg twice daily due to persistent fatigue (5) Leukocytosis: Plan: There was a question of pneumonia on the CT, however, patient has a normal procalcitonin and no respiratory symptoms. He is afebrile and leukocytosis has resolved. Cont to monitor off abx. (6) BPH (benign prostatic hyperplasia): Plan: Continue tamsulosin on 05/09 (confirmed with Haily at [facility]) Bladder scan, straight cath as needed (7) Acute hyponatremia: Plan: Na+ ~ 130 Possibly 2/2 lasix which has been held. May also be related to SSRI and this may be his baseline. Patient reports drinking 4-5 L of water daily at home on average. Cont with fluid restriction and cont to monitor Na has remained stable (8) HTN (hypertension): Plan: BP well controlled on current regimen, will continue (9) DVT prophylaxis: Plan: SQ Lovenox Dispo- awaiting SNF placement. Appreciate CM involvement. Patient is medically stable for discharge. Possible D/C to [facility] on Saturday. Pt was seen and examined in collaboration with Dr. Orozco, please see addendum Admission and Anticipated Discharge Date Admission Date: May 04, 2021 Supervising Physician Co-Signing Physician Notes Seen amria elena TIRADO, See above Physical Exam Gen-AAO x 3, NAD, Afebrile Head-NCAT, EOMI, PERRLA, Anicteric Sclera, No Posterior Pharyngeal Erythema Neck-Supple, No JVD, No Thyromegaly, No Masses, No LAD, No Bruits Lungs-Clear to Auscultation Bilaterally, No Rales, No Rhonchi, No Wheezing, No Crepitus Chest-No S4, +S1, +S2, No S3, No Murmurs, No Rubs, No Gallops, No Ectopy Abdomen-Soft, Bowel Sounds Present, Non Tender, Non Distended, No Hepatomegaly, No Splenomegaly, No Palpable Masses, No Rebound, No Rigidity, No Guarding Musculoskeletal-Full Range of Motion Bilaterally, No CVAT Extremities-No Cyanosis, No Clubbing, No Edema Nuero-Cranial Nerves II-XII grossly intact, Motor WNL, DTRs WNL, Strength WNL, Non Focal Psych-Normal Mood Subjective Pt was seen and examined in room 351-1. F/U Bigeminy, Dizziness, encephalopathy, leg pain. Feels leg pain and tingling in feet are improving. No discomfort at rest while working on crossword puzzle. Feels excited about upcoming discharge on Saturday. Continues to have intermittent dizziness. No F/C, cp, sob, n/v/d. Review of Systems Review of Systems: At least ten systems reviewed and negative except as noted in the HPI. Physical Exam Physical Exam: Gen: WD/WN, NAD, lying in bed, A&Ox3 HEENT: Normocephalic, atraumatic, conjunctivae moist, sclerae anicteric, mucous membranes moist Lung: Clear to Auscultation bilaterally, no wheezes/rales/rhonchi Heart: Regular rate, regular rhythm, no murmurs, rubs, or gallops Abdomen: Soft, NT, ND +BS x 4 Extremities: no edema, strength intact Skin: Warm, no rash Results & Data Results & Data ([facility]) Vital Signs (Past 12 Hours) Vital Signs Temp Pulse Resp BP Pulse Ox 05/18/21 10:07 161/75 H 05/18/21 08:03 36.4 C L 75 18 177/88 H 94 (1) Leukocytosis Leukocytosis type: unspecified Qualified Code(s): D72.829 - Elevated white blood cell count, unspecified
[2021-05-18] MEDS: ENOXAPARIN INJ 40 MG/0.4 ML SYR SQ SCH (15:42)
[2021-05-18] MEDS: OLANZAPINE 2.5 MG TAB PO SCH (20:55)
[2021-05-19] MEDS: ACETAMINOPHEN 500 MG TAB PO SCH ×3 (05:22→20:52)
[2021-05-19] MEDS: MULTIVITAMIN TAB PO SCH (07:37)
[2021-05-19] MEDS: amLODIPine BESYLATE 5 MG TAB PO SCH (07:38)
[2021-05-19] MEDS: EZETIMIBE 10 MG TABLET PO SCH (07:38)
[2021-05-19] MEDS: ASPIRIN 81 MG ECTAB PO SCH (07:38)
[2021-05-19] MEDS: PANTOprazole 40 MG TAB PO SCH (07:38)
[2021-05-19] MEDS: GABAPENTIN 100 MG CAP PO SCH ×3 (07:39→20:52)
[2021-05-19] MEDS: TAMSULOSIN HCL 0.4 MG CAP PO SCH (07:39)
[2021-05-19] MEDS: CLOPIDOGREL BISULFATE 75 MG TAB PO SCH (07:39)
[2021-05-19] MEDS: FERROUS SULFATE 325 MG TAB PO SCH (07:39)
[2021-05-19] MEDS: FUROSEMIDE 20 MG TAB PO SCH (07:39)
[2021-05-19] MEDS: ESCITALOPRAM OXALATE 10 MG TAB PO SCH (07:39)
[2021-05-19] MEDS: METOPROLOL SUCC 25MG EXT REL TAB PO SCH ×2 (07:40→20:53)
[2021-05-19] MEDS: FLUTICASONE/VILANTEROL 200/25MCG 14 PUFFS/INHALER INH SCH (07:40)
[2021-05-19] MEDS: DICLOFENAC SOD 1% GEL 100 GM TUBE EXT SCH ×3 (07:41→20:52)
[2021-05-19] MEDS: DOCUSATE SODIUM 100 MG CAP PO SCH (07:41)
[2021-05-19] MEDS: ATORVASTATIN 40 MG TAB PO SCH (07:43)
--- NOTE | 2021-05-19 14:46 | Hospitalist Progress Note ---
Date of Service May 19, 2021 Assessment & Plan (1) Encephalopathy: Plan: This is a 71-year-old male who has significant past medical history of CAD with history of CABG, HTN, HLD, MARTHA noncompliant with CPAP, asthma, BPH, schizophrenia, depression, major neurocognitive disorder who presented to ED via EMS secondary to dizziness. Patient currently in the process of transitioning care to [facility]. Outside records limited. Encephalopathy likely due to polypharmacy -> resolved On admission, clonazepam and olanzapine were listed as home medications however per Haily at [facility], patient was not taking those medications Clonazepam and risperidone were stopped, olanzapine 2.5 mg qHS started Possible early onset dementia per notes, but official psychiatry notes unavailable from OSH (2) CAD (coronary artery disease): Plan: S/p CABG in 2018, recent stent placement at OSH one month ago-records not available Cont ASA, Plavix, statin, beta laverne Currently in the process of transferring care to [facility] cardiology Patient has had intermittent chest pain relieved by nitroglycerin. EKG is unchanged, troponin negative. Asked for cardiology to reevaluate the patient 05/09, metoprolol tartrate changed to metoprolol succinate. Planning for outpatient stress test (3) Leg pain: Plan: Reporting medial right thigh pain radiating into the right calf with associated right foot numbness and tingling. This has been present for at least 2 weeks Lumbar spine x-ray unremarkable MRI Lumbar spine shows significant disease Appreciate Ortho input, recommend trial of interventional pain management Evaluated by pain management today, patient not a candidate for injection due to recent MS and need to remain on plavix Continue Tylenol, gabapentin 100 mg increased to TID, PRN tramadol , Voltaren gel Ambulatory dysfunction, PT and OT recommends SNF (4) Bigeminy: Plan: PVC ablation in 2018, Benign per cardiology. Metoprolol initially increased to 50 mg twice daily --> reduce back to 25 mg twice daily due to persistent fatigue (5) Leukocytosis: Plan: There was a question of pneumonia on the CT, however, patient has a normal procalcitonin and no respiratory symptoms. He is afebrile and leukocytosis has resolved. Cont to monitor off abx. (6) BPH (benign prostatic hyperplasia): Plan: Continue tamsulosin on 05/09 (confirmed with Haily at [facility]) Bladder scan, straight cath as needed (7) Acute hyponatremia: Plan: Na+ ~ 130 Possibly 2/2 lasix which has been held. May also be related to SSRI and this may be his baseline. Patient reports drinking 4-5 L of water daily at home on average. Cont with fluid restriction and cont to monitor Na has remained stable (8) HTN (hypertension): Plan: BP well controlled on current regimen, will continue (9) DVT prophylaxis: Plan: SQ Lovenox Dispo- awaiting SNF placement. Appreciate CM involvement. Patient is medically stable for discharge. Possible D/C to [facility] on Saturday. Pt was seen and examined in collaboration with Dr. Orozco, please see addendum Admission and Anticipated Discharge Date Admission Date: May 04, 2021 Supervising Physician Co-Signing Physician Notes Seen maria elena TIRADO, See above Physical Exam Gen-AAO x 3, NAD, Afebrile Head-NCAT, EOMI, PERRLA, Anicteric Sclera, No Posterior Pharyngeal Erythema Neck-Supple, No JVD, No Thyromegaly, No Masses, No LAD, No Bruits Lungs-Clear to Auscultation Bilaterally, No Rales, No Rhonchi, No Wheezing, No Crepitus Chest-No S4, +S1, +S2, No S3, No Murmurs, No Rubs, No Gallops, No Ectopy Abdomen-Soft, Bowel Sounds Present, Non Tender, Non Distended, No Hepatomegaly, No Splenomegaly, No Palpable Masses, No Rebound, No Rigidity, No Guarding Musculoskeletal-Full Range of Motion Bilaterally, No CVAT Extremities-No Cyanosis, No Clubbing, No Edema Nuero-Cranial Nerves II-XII grossly intact, Motor WNL, DTRs WNL, Strength WNL, Non Focal Psych-Normal Mood Subjective Pt was seen and examined in room 351-1. F/U Bigeminy, Dizziness, encephalopathy, leg pain. Feels leg pain has improved, still with some paresthesias. No discomfort at rest while looking out window. Received bed bath today and feeling better. Ready for upcoming discharge on Saturday. Continues to have intermittent dizziness. No F/C, cp, sob, n/v/d. Review of Systems Review of Systems: At least ten systems reviewed and negative except as noted in the HPI. Physical Exam Physical Exam: Gen: WD/WN, NAD, sitting in bedside chair, A&Ox3 HEENT: Normocephalic, atraumatic, conjunctivae moist, sclerae anicteric, mucous membranes moist Lung: Clear to Auscultation bilaterally, no wheezes/rales/rhonchi Heart: Regular rate, regular rhythm, no murmurs, rubs, or gallops Abdomen: Soft, NT, ND +BS x 4 Extremities: no edema, strength intact Skin: Warm, no rash Results & Data Results & Data ([facility]) Vital Signs (Past 12 Hours) Vital Signs Temp Pulse Pulse Resp BP BP Pulse Ox 05/19/21 09:14 37.2 C 61 61 17 138/77 95 05/19/21 05:42 164/87 H (1) Leukocytosis Leukocytosis type: unspecified Qualified Code(s): D72.829 - Elevated white blood cell count, unspecified
[2021-05-19] MEDS: ENOXAPARIN INJ 40 MG/0.4 ML SYR SQ SCH (16:40)
[2021-05-19] MEDS: OLANZAPINE 2.5 MG TAB PO SCH (20:52)
[2021-05-20] MEDS: ACETAMINOPHEN 500 MG TAB PO SCH (05:37)
[2021-05-20] MEDS: amLODIPine BESYLATE 5 MG TAB PO SCH (10:05)
[2021-05-20] MEDS: CLOPIDOGREL BISULFATE 75 MG TAB PO SCH (10:06)
[2021-05-20] MEDS: ESCITALOPRAM OXALATE 10 MG TAB PO SCH (10:06)
[2021-05-20] MEDS: ATORVASTATIN 40 MG TAB PO SCH (10:06)
[2021-05-20] MEDS: ASPIRIN 81 MG ECTAB PO SCH (10:06)
[2021-05-20] MEDS: DOCUSATE SODIUM 100 MG CAP PO SCH (10:07)
[2021-05-20] MEDS: FUROSEMIDE 20 MG TAB PO SCH (10:07)
[2021-05-20] MEDS: DICLOFENAC SOD 1% GEL 100 GM TUBE EXT SCH (10:07)
[2021-05-20] MEDS: FERROUS SULFATE 325 MG TAB PO SCH (10:07)
[2021-05-20] MEDS: EZETIMIBE 10 MG TABLET PO SCH (10:07)
[2021-05-20] MEDS: GABAPENTIN 100 MG CAP PO SCH (10:08)
[2021-05-20] MEDS: MULTIVITAMIN TAB PO SCH (10:08)
[2021-05-20] MEDS: METOPROLOL SUCC 25MG EXT REL TAB PO SCH (10:08)
[2021-05-20] MEDS: TAMSULOSIN HCL 0.4 MG CAP PO SCH (10:08)
[2021-05-20] MEDS: FLUTICASONE/VILANTEROL 200/25MCG 14 PUFFS/INHALER INH SCH (10:08)
[2021-05-20] MEDS: PANTOprazole 40 MG TAB PO SCH (10:09)
--- NOTE | 2021-05-20 10:32 | Discharge Summary ---
Date of Service May 20, 2021 Admission HPI Per Admitting Provider This is a 71-year-old male who has significant past medical history of CAD with history of CABG, HTN, HLD, MARTHA noncompliant with CPAP, asthma, BPH, schizophrenia, depression, major neurocognitive disorder who presents to ED via EMS secondary to dizziness. Of significance patient has recently established with [place] 2 weeks ago and records are limited. Previously had been followed by a PCP in [place] as well as cardiology at [facility]. Patient states approximately 1 month ago he suffered a small MO and had to have a stent placed in [place], [place]. Since then he has been doing well until last evening when he was standing doing dishes and became very lightheaded and dizzy. He had to sit down. Dizziness and lightheadedness gets worse with movement. He states, "my heart rate is low." He was seen in clinic today and EMS was summoned to bring patient to ED. Upon arrival with EMS heart rate was in 40s. He did take his morning medications. He further complains of chest heaviness although he states this has been present for a, "long time." He denies any garth chest pain. He is experiencing palpitations. He denies any falls or syncope. He denies any fever, chills, sweats, shortness of breath, HERNANDEZ, cough, hemoptysis, or symptoms, nausea, vomiting, abdominal pain. Denies any recent illness. He denies any smoking rhonchal use. He does live alone. Although patient states symptoms of been going on for 1 day, per [facility] he was seen at [facility] ER earlier this week secondary to similar symptoms. He was discharged to home. Also patient was recently confined at [facility] and psychiatry due to depression and loneliness. Admission Exam Per Admitting Provider Constitutional: WD/WN, elderly, male, vitals as above, NAD, sitting up in bed, pleasant, conversing easily Head: Normocephalic, Atraumatic Eyes: PERRL, conjunctivae normal, anicteric sclerae ENMT: external ear and nose normal, oropharynx normal Neck: trachea midline, no thyromegaly normal visual inspection Respiratory: normal respiratory effort, lungs clear to auscultation, no wheeze, rales, rhonchi. Normal insp/exp effort, no accessory muscle use Cardiovascular: Bradycardic rate with frequent ectopy, no murmur, no edema Vessels: no JVD or carotid bruit Chest: normal inspection of chest Abdomen: normal bowel sounds, soft, nontender, no hepatosplenomegaly Musculoskeletal: no cyanosis or clubbing, extremities motor strength 5/5 Skin: no rashes, warm and dry normal turgor Neurologic: PERRL, EOMI, accommodation nl, no face palsy, no dysarthria CN's II-XI intact bilaterally and moves all extremities Psychiatric: A+Ox3, euthymic affect Lymphatic: no cervical or axillary lymphadenopathy : deferred Principal Diagnosis (1) Encephalopathy: (2) CAD (coronary artery disease): (3) Leg pain: (4) Bigeminy: (5) Leukocytosis: (6) BPH (benign prostatic hyperplasia): (7) Acute hyponatremia: (8) HTN (hypertension): Discharge Exam See below Discharge Data Allergies Allergy/AdvReac Type Severity Reaction Status Date / Time No Known Allergies Allergy Verified 05/04/21 14:10 Consultations 05/04/21 14:29 ED Decision to Admit Stat 05/04/21 14:33 Consult Health Information Management Routine 05/04/21 15:06 Consult Cardiology Routine 05/05/21 14:03 Consult Psychiatry Routine 05/12/21 08:00 Consult Orthopedic Surgery Routine 05/13/21 16:11 Consult Pain Management Routine Ordered Studies 05/04/21 11:31 CT head/brain wo con Stat 05/04/21 17:09 US carotid doppler BI Routine 05/04/21 18:16 CT angio chest PE protocol Urgent 05/05/21 12:58 CT head/brain wo con Stat 05/12/21 09:59 MR lumbar spine wo con Routine Current Diagnoses Elevated white blood cell count, unspecified (05/04/21) Hyperlipidemia, unspecified (05/04/21) Hypo-osmolality and hyponatremia (05/04/21) Unspecified dementia without behavioral disturbance (05/04/21) Schizophrenia, unspecified (05/04/21) Encephalopathy, unspecified (05/04/21) Essential (primary) hypertension (05/04/21) Atherosclerotic heart disease of [place] coronary artery without angina pectoris (05/04/21) Atrial premature depolarization (05/04/21) Ventricular premature depolarization (05/04/21) Other specified cardiac arrhythmias (05/04/21) Spinal stenosis, lumbar region with neurogenic claudication (05/04/21) Pain in leg, unspecified (05/04/21) Benign prostatic hyperplasia without lower urinary tract symptoms (05/04/21) Other chest pain (05/04/21) Other specified symptoms and signs involving the circulatory and respiratory systems (05/04/21) Dizziness and giddiness (05/04/21) Encounter for prophylactic measures, unspecified (05/04/21) Allergies No Known Allergies Allergy (Verified 05/04/21 14:10) Height/Weight/Isolation Height 5 ft 7 in Weight 90.5 kg Hospital Course (1) Encephalopathy: This is a 71-year-old male who has significant past medical history of CAD with history of CABG, HTN, HLD, MARTHA noncompliant with CPAP, asthma, BPH, schizophrenia, depression, major neurocognitive disorder who presented to ED via EMS secondary to dizziness. Patient currently in the process of transitioning care to [facility]. Outside records limited. Encephalopathy likely due to polypharmacy -> resolved On admission, clonazepam and olanzapine were listed as home medications however per Haily at [facility], patient was not taking those medications Clonazepam and risperidone were stopped, olanzapine 2.5 mg qHS started Possible early onset dementia per notes, but official psychiatry notes unavailable from OSH (2) CAD (coronary artery disease): S/p CABG in 2018, recent stent placement at OSH one month ago-records not available Cont ASA, Plavix, statin, beta laverne Currently in the process of transferring care to [facility] cardiology Patient has had intermittent chest pain relieved by nitroglycerin. EKG is unchanged, troponin negative. Asked for cardiology to reevaluate the patient 05/09, metoprolol tartrate changed to metoprolol succinate. Planning for outpatient stress test (3) Leg pain: Reporting medial right thigh pain radiating into the right calf with associated right foot numbness and tingling. This has been present for at least 2 weeks Lumbar spine x-ray unremarkable MRI Lumbar spine shows significant disease Appreciate Ortho input, recommend trial of interventional pain management Evaluated by pain management today, patient not a candidate for injection due to recent MO and need to remain on plavix Continue Tylenol, gabapentin 100 mg increased to TID, PRN tramadol , Voltaren gel Ambulatory dysfunction, PT and OT recommends SNF (4) Bigeminy: PVC ablation in 2018, Benign per cardiology. Metoprolol initially increased to 50 mg twice daily --> reduce back to 25 mg twice daily due to persistent fatigue (5) Leukocytosis: There was a question of pneumonia on the CT, however, patient has a normal procalcitonin and no respiratory symptoms. He is afebrile and leukocytosis has resolved. Cont to monitor off abx. (6) BPH (benign prostatic hyperplasia): Continue tamsulosin on 05/09 (confirmed with Haily at [facility]) Bladder scan, straight cath as needed (7) Acute hyponatremia: Na+ ~ 130 Possibly 05/10 lasix which has been held. May also be related to SSRI and this may be his baseline. Patient reports drinking 4-5 L of water daily at home on average. Cont with fluid restriction and cont to monitor Na has remained stable (8) HTN (hypertension): BP well controlled on current regimen, will continue (9) DVT prophylaxis: SQ Lovenox Dispo- awaiting SNF placement. Appreciate CM involvement. Patient is medically stable for discharge. Possible D/C to [facility] on Saturday. ROS-No Headache, No Visual Changes, No Nausea, No Vomiting, No Fever, No Chills, No Neck Pain or Stiffness, No Chest Pain, No Palpitations, No SOB, No HERNANDEZ, No Cough, No Sputum, No Wheezing, No Abdominal Pain, No Diarrhea, No Hematemesis, No Hemoptysis, No Unexpected Weight Loss, No Flank pain, No Melena, No Hematochezia, No Frequency, No Urgency, No Burning, No Hematuria, No Rashes, No Diaphoresis. Appetite is Normal, a little weak Physical Exam Gen-AAO x 3, NAD, Afebrile Head-NCAT, EOMI, PERRLA, Anicteric Sclera, No Posterior Pharyngeal Erythema Neck-Supple, No JVD, No Thyromegaly, No Masses, No LAD, No Bruits Lungs-Clear to Auscultation Bilaterally, No Rales, No Rhonchi, No Wheezing, No Crepitus Chest-No S4, +S1, +S2, No S3, No Murmurs, No Rubs, No Gallops, No Ectopy Abdomen-Soft, Bowel Sounds Present, Non Tender, Non Distended, No Hepatomegaly, No Splenomegaly, No Palpable Masses, No Rebound, No Rigidity, No Guarding Musculoskeletal-Full Range of Motion Bilaterally, No CVAT Extremities-No Cyanosis, No Clubbing, No Edema Nuero-Cranial Nerves II-XII grossly intact, Motor WNL, DTRs WNL, Strength WNL, Non Focal Psych-Normal Mood Total Time Total Time Spent Total Time Spent (In Minutes): 45 mins Total Time Includes: Examination of the Patient, Discharge Planning, Medication Reconciliation and Communication With Other Providers Discharge Plan Discharge Items Patient Disposition: Transfer [facility] Living Fac Reason For Visit: DIZZINESS Discharge Diagnosis: (1) Encephalopathy: (2) CAD (coronary artery disease): (3) Leg pain: (4) Bigeminy: (5) Leukocytosis: (6) BPH (benign prostatic hyperplasia): (7) Acute hyponatremia: (8) HTN (hypertension): Condition on Discharge: Fair Activity: Resume your previous activity Lifting: Gradually increase as tolerated Bathing: No limitations Exercise/Sports: Gradually increase as tolerated Weightbearing: Full weightbearing Non-emergency contact: Primary Care Provider Call non-emergency contact if: you have any medication questions, your symptoms worsen and your pain is not controlled Follow-up/Referrals: Everette Torrez DO [Radiology Orderly] - (Date & Time 06/06/2021 2:00 PM Provider Everette Torrez DO Department [place] office Cardiology [facility] ) Bong Gould MD [Primary Care Provider] - ( ) Diet: Heart Healthy Addtl Attending Provider Instructions: You were evaluated by cardiology for complaints of chest pain. Work-up was negative. Follow-up appointment has been scheduled for you with Dr. Cook in [place], please keep this appointment as scheduled. Follow-up appointment has been scheduled for you with project designer Dr. Torrez in [place], please keep this appointment as scheduled. Pending Studies at Discharge: No Stand-Alone Forms: My [facility] Skilled Items Patient informed of condition?: Yes DNR: No Discharge Level of Care: Skilled Communicable Disease: No Discharge Prognosis: Improving Lines: None Urinary Catheter: No Medications and DC Order Prescriptions: New escitalopram oxalate 10 mg Tablet 10 mg PO QAM Qty: 7 RF: 0 olanzapine 2.5 mg Tablet 2.5 mg PO HS Qty: 7 RF: 0 tamsulosin [Flomax] 0.4 mg capsule 0.4 mg PO HS Qty: 30 RF: 0 albuterol sulfate [Ventolin HFA] 90 mcg/actuation Hfa Aerosol Inhaler 2 puff inhalation Q6H PRN (Reason: shortness of breath or wheezing) Qty: 2 RF: 0 clopidogrel 75 mg Tablet 75 mg PO DAILY Qty: 30 RF: 0 ferrous sulfate 325 mg (65 mg iron) Tablet,Delayed Release (Dr/Ec) 325 mg PO QAM Qty: 30 RF: 0 amlodipine [Norvasc] 5 mg Tablet 2.5 mg PO DAILY Qty: 30 RF: 0 atorvastatin 40 mg Tablet 40 mg PO DAILY Qty: 30 RF: 0 ezetimibe 10 mg Tablet 10 mg PO DAILY Qty: 30 RF: 0 aspirin 81 mg tablet,delayed release (DR/EC) 81 mg PO DAILY Qty: 30 RF: 0 metoprolol succinate 25 mg capsule,sprinkle,ER 24hr 25 mg PO BID Qty: 60 RF: 0 escitalopram oxalate [Lexapro] 10 mg tablet 10 mg PO DAILY Qty: 30 RF: 0 citalopram 20 mg tablet 20 mg PO DAILY Qty: 30 RF: 0 olanzapine [Zyprexa] 2.5 mg tablet 2.5 mg PO DAILY Qty: 30 RF: 0 gabapentin 100 mg Capsule 100 mg PO TID Qty: 90 RF: 0 tramadol 50 mg Tablet 50 mg PO Q4H PRN (Reason: pain) Qty: 30 RF: 0 furosemide 20 mg Tablet 20 mg PO QAM Qty: 30 RF: 0 docusate sodium 100 mg Capsule 100 mg PO DAILY Qty: 30 RF: 0 pantoprazole 40 mg Tablet,Delayed Release (Dr/Ec) 40 mg PO DAILY Qty: 30 RF: 0 Breo Ellipta 200-25 mcg/dose Blister With Device 1 ea inhalation DAILY Qty: 60 RF: 0 multivitamin with folic acid [Daily-Ludivina (with folic acid)] 400 mcg Tablet 1 tab PO DAILY Qty: 30 RF: 0 Continued fluticasone propion-salmeterol [Advair Diskus] 250-50 mcg/dose blister with device 1 inh INHALATION BID RF: 0 melatonin 5 mg Tablet 5 mg PO HS PRN (Reason: Sleep) RF: 0 Discontinued atorvastatin 40 mg tablet 40 mg PO DAILY RF: 0 amlodipine 2.5 mg tablet 2.5 mg PO DAILY RF: 0 clopidogrel 75 mg tablet 75 mg PO DAILY RF: 0 pantoprazole 20 mg tablet,delayed release (DR/EC) 20 mg PO DAILY RF: 0 furosemide 20 mg tablet 20 mg PO DAILY RF: 0 metoprolol tartrate 25 mg tablet 25 mg PO BID RF: 0 multivitamin Tablet 1 tab PO DAILY RF: 0 aspirin 81 mg Tablet,Delayed Release (Dr/Ec) 81 mg PO DAILY RF: 0 risperidone 3 mg tablet 3 mg PO HS RF: 0 citalopram 20 mg Tablet 20 mg PO DAILY RF: 0 docusate sodium [Colace] 100 mg capsule 100 mg PO DAILY RF: 0 albuterol sulfate [Proventil HFA] 90 mcg/actuation Hfa Aerosol Inhaler 2 puff INHALATION 6XD PRN (Reason: SOB) RF: 0 risperidone 1 mg tablet 1 mg PO DAILY RF: 0 ezetimibe [Zetia] 10 mg Tablet 10 mg PO DAILY RF: 0 tamsulosin 0.4 mg capsule 0.4 mg PO DAILY RF: 0 nitroglycerin 0.4 mg tablet, sublingual 0.4 mg sublingual UD PRN (Reason: Chest Pain) RF: 0 hydroxyzine HCl 25 mg Tablet 25 mg PO BID PRN (Reason: Anxiety) RF: 0 ferrous sulfate 324 mg (65 mg iron) Tablet,Delayed Release (Dr/Ec) 324 mg PO DAILY RF: 0 Discharge Orders: Discharge Order (Routine); Ordered 05/20/21 Ordered By: Nehemiah Hightower/Other Patient Handouts: Prediabetes, 5 Steps for Eating Healthier Admission Data Admit Date/Time: 05/04/21 14:30 Attending Provider: Nehemiah Orozco Admit Provider: Maribel Rosas Primary Care Provider: Bong Gould Other Providers: Maribel Rosas ; Simone Isaac ; Shasta Bello ; Misa Luu ; Leilani Thibodeaux ; Ashok Adame ; Camilla Montalvo ; Sadiq Trammell ; Mary [facility]ard[facility] ; Marina Robles ; Haider BanksFlower Hospital
== END 2021-05-20 11:48 | DRG 314 ==
LOC: ED 11:17 → EDINP 14:30 → SUATTDRO 14:30 → 2S 20:19 → 3W 05-07 16:12